=== PATIENT | male | born 1955 | race Caucasian/White ===

== ENCOUNTER → 2017-02-15 | Outpatient (CLI) | payer OTHER ==
[~2017-02-15] MED LIST: VIAG100T PO
--- NOTE | 2017-02-15 10:53 | RADONC ---
RADIATION ONCOLOGY FOLLOWUP NOTE DATE: 02/15/2017 CHART NUMBER: [id number] DIAGNOSIS: Prostate cancer. STAGE: IIA, [id number]. ECOG PERFORMANCE STATUS: 0. FOLLOWUP NOTE: Mr. Fair is a very pleasant 61-year-old white male with the diagnosis of a stage IIA, B4rO5R4 moderate to poorly differentiated Lala score 7 (3-4) adenocarcinoma of the prostate who is presenting to us today for followup visit 6 months post completion of external beam radiation therapy. The patient presents today reporting that he is generally doing well but has burning upon urination, especially near the tip of his penis. The pain actually can get very severe and include mild most of his penis. The patient's review of systems is positive for pain at the tip of the penis but is otherwise noncontributory. He denies nausea, vomiting, fevers, chills, night sweats, diplopia, headaches, anxiety or depression, anorexia, weight loss, visual disturbances, chest pain, urinary or bowel difficulties, bone pain, or neurological problems. PHYSICAL EXAMINATION: The patient is a well-developed, well-nourished male in no acute distress. HEENT exam is normocephalic, atraumatic. Extraocular movements are intact. There is no palpable cervical, supraclavicular, infraclavicular, axillary, or inguinal lymphadenopathy present. Lungs are clear to auscultation and percussion. Heart has a regular rate and rhythm. Abdomen is benign with no hepatosplenomegaly, masses, or tenderness. Rectal examination reveals a normal anal sphincter tone. His prostate is smooth with no evidence of nodularity. Skeletal examination reveals no tenderness to pressure or percussion of the bony skeleton. Extremities reveal no clubbing, cyanosis, or edema. Neurologic exam is grossly intact as is the remainder of the physical examination. ASSESSMENT: The patient continues to complain of pain on the edge of his penis. He reports that this pain has been coming and going since he had a catheter removed following biopsy. To be thorough I have ordered a new culture and sensitivity and urinalysis. He did have one done on December 29 which showed no evidence of infection, however, the patient reports that this seems to be getting worse. The patient says his urine is free of any sign of blood pus or other issues. I have reproduced the patient's treatment black and his penis was not in the radiation field. The upper ureter, however, would have been in the radiation treatment field as would the penile bulb. In light of this I have given the patient Pyridium and he will use that for the next week and then the me know how he is doing. Meanwhile, we await the results of urinalysis and culture and sensitivity. I have scheduled a routine followup as well with him. If this does not improve we will refer him back to his urologist. cc: *Ally Dukes MD
== END ==
LOC: M ONCR 08:53
PROVIDERS: ATTEND Radiology Radiation Oncology
DX: C61 Malignant neoplasm of prostate (principal)

== ENCOUNTER 2019-11-06 11:56 | Inpatient (IN) | payer MEDICAID, OTHER ==
[~2019-11-06] VITALS: Ht 185.4 cm; Wt 96.2 kg
[2019-11-06 14:50] VITALS: BP 152/67
[2019-11-06] MEDS ORDERED: traZODone 25MG PER 1/2 TABLET PO PRN (16:15)
[2019-11-06] MEDS ORDERED: MOM 30ML SUSPENSION UDC PO PRN (16:15)
[2019-11-06] MEDS ORDERED: LISI40TA PO (17:28)
[2019-11-06] MEDS ORDERED: NICO21DI38 TD (17:28)
[2019-11-06] MEDS ORDERED: TRAZ-186 PO (17:28)
[2019-11-06] MEDS ORDERED: BRIL90TA PO (17:28)
[2019-11-06] MEDS ORDERED: MELA5TAB7 PO (17:28)
[2019-11-06] MEDS ORDERED: HYDR25TAB PO (17:28)
[2019-11-06] MEDS ORDERED: ASPI81TA85 PO (17:28)
[2019-11-06] MEDS ORDERED: FLOM0.4C39 PO (17:28)
[2019-11-06] MEDS ORDERED: ATOR80TA59 PO (17:28)
[2019-11-06] MEDS ORDERED: METO50TA7 PO (17:31)
[2019-11-06] MEDS ORDERED: METO1TAB7 PO (17:34)
[2019-11-06] MEDS: NICOTINE 21MG/24HR 1 EA TRANSDERMAL TD SCH (18:16)
[2019-11-06] MEDS: PANTOPRAZOLE 40MG TAB (PROTONIX) PO SCH (18:57)
[2019-11-06] MEDS: IPRATROPIUM 0.5MG/ALBUTEROL 2.5MG INH SOL UD 3ML (DUONEB)(J7620) NEB SCH (19:55)
[2019-11-06 20:00] VITALS: BP 174/83
[2019-11-06] MEDS: TAMSULOSIN 0.4 MG CAP PO SCH (20:09)
[2019-11-06] MEDS: SENNA 8.6 MG TAB (SENOKOT) PO SCH (20:09)
[2019-11-06] MEDS: TICAGRELOR 90 MG TABLET (BRILINTA) PO SCH (20:09)
[2019-11-06] MEDS: DOCUSATE SODIUM 100 MG CAP PO SCH (20:09)
[2019-11-06] MEDS: ATORVASTATIN 20 MG TAB PO SCH (20:09)
[2019-11-06] MEDS: ACETAMINOPHEN TAB 650MG DOSE (2X325MG) PO PRN (20:22)
[2019-11-06] MEDS ORDERED: ATORVASTATIN 20 MG TAB PO SCH (21:00)
[2019-11-06] MEDS: METOPROLOL TART 50 MG TAB PO SCH (23:06)
[2019-11-07 06:00] VITALS: BP 145/86
[2019-11-07 07:29] LABS: BASO # 0.1 10^3/uL (0.0-0.2); BASO % 1.4 % (0.0-1.0); EOS # 0.4 10^3/uL (0.0-0.5); HEMATOCRIT 50.5 % (42.0-52.0); HEMOGLOBIN 17.3 g/dl (13.5-17.5); LYMPH # 1.4 10^3/uL (1.5-5.0); LYMPH % 15.8 % (24.0-44.0); MEAN CORPUSCULAR HEMOGLOBIN 34.6 pg (27.0-33.0); MEAN CORPUSCULAR HGB CONC 34.3 g/dl (32.0-36.5); MONO # 0.9 10^3/uL (0.0-0.8); MONO % 10.3 % (0.0-5.0); NEUTROPHILS # 5.9 10^3/uL (1.5-8.5); PLATELET COUNT, AUTOMATED 308 10^3/uL (150-450); WHITE BLOOD COUNT 8.8 10^3/uL (4.0-10.0)
[2019-11-07 07:54] LABS: ALBUMIN 3.2 GM/DL (3.2-5.2); ALT/SGPT 65 U/L (12-78); BILIRUBIN,TOTAL 0.5 MG/DL (0.2-1.0); BLOOD UREA NITROGEN 22 MG/DL (7-18); CALCIUM LEVEL 8.7 MG/DL (8.8-10.2); CARBON DIOXIDE LEVEL 23 MEQ/L (21-32); CHLORIDE LEVEL 111 MEQ/L (98-107); CREATININE FOR GFR 0.84 MG/DL (0.70-1.30); GLOMERULAR FILTRATION RATE > 60.0 (>49); GLUCOSE, FASTING 101 MG/DL (70-100); POTASSIUM SERUM 4.1 MEQ/L (3.5-5.1); SODIUM LEVEL 141 MEQ/L (136-145); TOTAL PROTEIN 7.2 GM/DL (6.4-8.2)
[2019-11-07] MEDS: IPRATROPIUM 0.5MG/ALBUTEROL 2.5MG INH SOL UD 3ML (DUONEB)(J7620) NEB SCH ×3 (08:03→19:36)
[2019-11-07] MEDS: ASPIRIN 81 MG ENTERIC TAB PO SCH (08:31)
[2019-11-07] MEDS: METOPROLOL TART 50 MG TAB PO SCH (08:31)
[2019-11-07] MEDS: TICAGRELOR 90 MG TABLET (BRILINTA) PO SCH ×2 (08:31→20:38)
[2019-11-07] MEDS: lisinopriL 40 MG TAB PO SCH (08:31)
[2019-11-07] MEDS: NICOTINE 21MG/24HR 1 EA TRANSDERMAL TD SCH (08:31)
[2019-11-07] MEDS: hydroCHLOROthiazide 25 MG TAB PO SCH (08:32)
[2019-11-07] MEDS: DOCUSATE SODIUM 100 MG CAP PO SCH ×2 (08:32→20:38)
[2019-11-07] MEDS: PANTOPRAZOLE 40MG TAB (PROTONIX) PO SCH (08:32)
[2019-11-07] MEDS: ACETAMINOPHEN TAB 650MG DOSE (2X325MG) PO PRN (08:35)
--- NOTE | 2019-11-07 12:56 | HPEPDOC ---
Technical Communicator Note DATE OF ADMISSION: 11-06-19 DATE OF SERVICE: 11-06-19 TIME OF ADMISSION: Please refer to physician's admission order. SOURCE OF ADMISSION INFORMATION: [facility] records and patient CHIEF COMPLAINT: stroke HISTORY OF PRESENT ILLNESS: 63M pmh HTN, CAD, history of prostate cancer, smoker who developed left sided weakness and presented to [facility] on 10-30-19 where CTA showed complete occlusion of the right internal carotid artery and right middle cerebral arteryno evidence of intracranial hemorrhage. He was given tPA and underwent a right a mechanical thrombectomy of the right MCA and ICA; angioplasty and stenting of right ICA/CCA. He had post-procedure hemorrhage in the right basal ganglia and willams radiata on 10-31-19. He was found to have decreased pulses in his LLE for which US showed 50-75% stenosis of the common femoral artery and acute superficial femoral artery occlusion in the proximal thigh thought to be due to mechanical thrombectomy. He was evaluated by therapy, found to have significant left sided paresis and difficulty with mobility and ADLs well below his prior level of function and deemed medically appropriate for discharge to ARU on 11-06-19. REVIEW OF SYSTEMS: The following is a completed review of systems and has been reviewed. Review of systems otherwise unremarkable. PAIN: Patient self reports no pain EYES: decreased vision on the left EARS, NOSE, & THROAT: +dysphagia CARDIOVASCULAR: Denies chest pain or palpitations PULMONARY: Denies shortness of breath, +cough GASTROINTESTINAL: Denies constipation/diarrhea GENITOURINARY: urinary retention (chronic) MUSCULOSKELETAL: NEUROLOGICAL:left sided paresis HEMATOLOGICAL: denies easy bruising SKIN: left toe ulcer PSYCHIATRIC: Unremarkable All other review of systems found to be negative. PAST MEDICAL HISTORY: as per HPI PAST SURGICAL HISTORY: Prostatotomy ALLERGIES: Please see below. MEDICATIONS: Please see below. FAMILY HISTORY: CAD SOCIAL HISTORY: +smoker, no etoh or illicit drugs, lives alone DIET: mechanical soft PHYSICAL EXAMINATION: VITAL SIGNS: Please see below. GENERAL: Pleasant and cooperative. No acute distress. HEENT: PERRL. Extraocular movements grossly intact, + difficulty looking to left, but able to cross midline, Clear conjunctiva CARDIOVASCULAR: Regular rate and rhythm. No murmurs, rubs, or gallops LUNGS: Clear to auscultation bilaterally. No wheezes. No rhonchi ABDOMEN: Soft, nontender, nondistended. Positive bowel sounds. Normal active bowel sounds NEUROLOGICAL: Alert and oriented times three. Cranial nerves II through XII grossly intact. Sensation to light touch groslyinact in all4 extremities, + extinction to touch on the left (+)left eye-brow sparing left facial droop (-) Babinksi bilat 1/4+ tone left elbow extensors EXTREMITIES: 5\5 strength right upper extremities. Left UE 2/5 elbow flexors, 3/5 elbow extensors, 2/5 wrist extension, 3/5 toaster operator 5/5 RLE, 3+/5 left hip flexion, knee extension, 4/5 ankle DF, EHL, and PF SKIN: left D1-D2 interdigit ulcer (dry) LABORATORY DATA: Please see below. IMAGING: Imaging documentation personally reviewed by record FUNCTIONAL STATUS: Premorbid: Independent with all activities of daily life as well as mobility On Admission: Mod-Max assistance for bed mobility, functional transfers, ambulation, dressing, toileting GOALS: Mod-I with quad cane ambulating household distances, functional transfers, toileting, bathing, dressing, medical optimization ASSESSMENT:63-year-old M with past medical history of HTN who presents status post stroke PLAN: 1.Rehab-PT advance gait training, trunk control, strenghten, stretch, maintain ROM bilat LE- e-stim prn OT- advance ADL management, strengthen, stretch, maintain ROM bilat UE, e-stim prn, left shoulder stabilization, consider taping, sling during ambulation for shoulder protectin 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 Neuro: s/p right MCA infarct s/p TPA and ICA/MCA thrombectomy with stenting with right basal ganglia and willams radiata hemorrhagic - patient with dyshagia and left sisde paresis -c/u ASA, Brillinta, BP control, and statin for secondary stroke prevention -will need neurology referral -f/u Dr Molina neurosurgeon upon d/c 3. Cardiac: hx HTN, c/u metoprolol, lisinopril, HCTZ- medicine consulted to assist in management, recent ECHO at [facility] not suggestive of systolic/diastolic CHF -HLD- c/u statin 4. Resp: hx of smoking with cough, will start Duonebs, monitor for infection, encourage incentive spirometry -nicotine patch 5. Vasc: recent acute occlusion left superficial femoral artery, patient asymptomatic, will consider inhouse vascular consult prn 6. : hx of prostate cancer s/p prostatotomy- patient self-caths about once a month at home, currently with william, will wait for patient to bring in own equipment before doing TOV -c/u FLomax 0.8 mg qhs 7. DVT ppx: Teds, will order Dopplers, avoiding chemoprophylaxis given recent hemorrhage 8. GI ppx: protonix 9. Disp: tbd POST ADMISSION PHYSICIAN EVALUATION: Medical and functional status: Description of medical status, medical assessment: As above. Rehabilitation diagnosis and current and prior cold morbid medical conditions as above. Risk of complications and plans to mitigate them as above. Description of functional status current status is as above. Prior status as above. Status compared to preadmission: There are no clinically significant differences between the patient's current status and the information described on the preadmission screening document. Treatment plan anticipated: Treatment plan is as described above. Required disciplines including physical therapy, occupational therapy, others as noted above Intensity of services: 3 hours a day, 6 days a week. Special considerations: There are no specific special or safety considerations that would likely preclude immediate implementation of an intensive rehabilitation program or subsequently influence the plan of care. ATTESTATION: Considering all the information above, it is my best judgment that this patient requires intensive rehabilitation therapy as described above and an inpatient hospital environment due to the complexity of nursing, medical, and rehabilitation needs required by the patient. Furthermore, this patient can reasonably be expected to participate in an benefit from an inpatient rehabilitation stay with an interdisciplinary team approach to the delivery of rehabilitation care under the direction and supervision of rehabilitation physician PROGNOSIS: Good ESTIMATED LENGTH OF STAY: 21-28 days. PROJECTED DISCHARGE DESTINATION: Home with family support and any durable medical equipment required to increase functional safety and mobility. TIME SPENT COUNSELING AND COORDINATING INITIAL CARE: Greater than 70 minutes. Vital Signs Vital Sign - Last 24 Hours 11/06/19 11/06/19 11/06/19 11/07/19 14:50 20:00 23:06 06:00 Temp 98.3 97.5 97.2 Pulse 88 113 99 86 Resp 20 18 18 B/P (MAP) 152/67 (95) 174/83 (113) 131/81 145/86 (105) Pulse Ox 97 95 93 O2 Delivery Room Air Room Air Room Air 11/07/19 08:31 Pulse 86 B/P (MAP) 145/86 Laboratory Data CBC/BMP Laboratory Tests 11/07/19 07:11 Labs 24H Laboratory Tests 2 11/07/19 07:11: Immature Granulocyte % (Auto) 0.5, Neutrophils (%) (Auto) 67.0H, Lymphocytes (%) (Auto) 15.8L, Monocytes (%) (Auto) 10.3H, Eosinophils (%) (Auto) 5.0H, Basophils (%) (Auto) 1.4H, Neutrophils # (Auto) 5.9, Lymphocytes # (Auto) 1.4L, Monocytes # (Auto) 0.9H, Eosinophils # (Auto) 0.4, Basophils # (Auto) 0.1, Nucleated Red Blood Cells % (auto) 0.0, Anion Gap 7L, Glomerular Filtration Rate > 60.0, Calcium Level 8.7L, Total Bilirubin 0.5, Aspartate Amino Transf (AST/SGOT) 40H, Alanine Aminotransferase (ALT/SGPT) 65, Alkaline Phosphatase 54, Total Protein 7.2, Albumin 3.2, Albumin/Globulin Ratio 0.80L Home Medications Scheduled Aspirin (Aspir 81) 81 Mg Tablet.dr, 81 MG PO DAILY, (Reported) Atorvastatin Calcium (Atorvastatin Calcium) 80 Mg Tablet, 80 MG PO QHS, (Reported) INCREASED DOSE AT [facility] Hydrochlorothiazide (Hydrochlorothiazide) 25 Mg Tablet, 25 MG PO DAILY, (Reported) Lisinopril (Lisinopril) 40 Mg Tablet, 40 MG PO DAILY, (Reported) Melatonin (Melatonin) 5 Mg Tablet, 5 MG PO QHS, (Reported) Metoprolol Succinate (Metoprolol Succinate) 50 Mg Tab.er.24h, 50 MG PO DAILY, (Reported) Nicotine (Nicotine Patch) 21 Mg/24 Hr Patch.td24, 21 MG TD DAILY, (Reported) Tamsulosin HCl (Flomax) 0.4 Mg Capsule, 0.8 MG PO DAILY, (Reported) Ticagrelor Base (Brilinta) 90 Mg Tablet, 90 MG PO BID, (Reported) Trazodone HCl (Trazodone HCl) 50 Mg Tablet, 25 MG PO QHS, (Reported) Allergies Coded Allergies: No Known Allergies (Verified Allergy, Unknown, 11/06/19) A-FIB/CHADSVASC A-FIB History Current/History of A-Fib/PAF?: No ANNE BENAVIDEZ MD Nov 07, 2019 12:56
--- NOTE | 2019-11-07 12:57 | IPNPDOC ---
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 He does not think he got the nocturnal 02 last night. REVIEW OF SYSTEMS: The following is a completed review of systems and has been reviewed. Review of systems otherwise unremarkable. PAIN: Patient self reports no pain EYES: decreased vision on the left EARS, NOSE, & THROAT: +dysphagia CARDIOVASCULAR: Denies chest pain or palpitations PULMONARY: Denies shortness of breath, +cough GASTROINTESTINAL: Denies constipation/diarrhea GENITOURINARY: urinary retention (chronic) MUSCULOSKELETAL: NEUROLOGICAL:left sided paresis HEMATOLOGICAL: denies easy bruising SKIN: left toe ulcer PSYCHIATRIC: Unremarkable All other review of systems found to be negative. PHYSICAL EXAMINATION: VITAL SIGNS: Please see below. GENERAL: Pleasant and cooperative. No acute distress. HEENT: PERRL. Extraocular movements grossly intact, + difficulty looking to left, but able to cross midline, Clear conjunctiva CARDIOVASCULAR: Regular rate and rhythm. No murmurs, rubs, or gallops LUNGS: Clear to auscultation bilaterally. No wheezes. No rhonchi ABDOMEN: Soft, nontender, nondistended. Positive bowel sounds. Normal active bowel sounds NEUROLOGICAL: Alert and oriented times three. Cranial nerves II through XII grossly intact. Sensation to light touch groslyinact in all4 extremities, + extinction to touch on the left (+)left eye-brow sparing left facial droop (-) Babinksi bilat 1/4+ tone left elbow extensors EXTREMITIES: 5\5 strength right upper extremities. 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 Neuro: s/p right MCA infarct s/p TPA and ICA/MCA thrombectomy with stenting with right basal ganglia and willams radiata hemorrhagic - patient with dyshagia and left sisde paresis -c/u ASA, Brillinta, BP control, and statin for secondary stroke prevention -will need neurology referral -f/u Dr Molina neurosurgeon upon d/c 3. Cardiac: hx HTN, c/u metoprolol, lisinopril, HCTZ- medicine consulted to assist in management, recent ECHO at [facility] not suggestive of systolic/diastolic CHF -HLD- c/u statin 4. Resp: hx of smoking with cough, will start Duonebs, monitor for infection, encourage incentive spirometry -nicotine patch -hx of YAN but did not finish getting fitted for CPAP mask, c/u nocturnal 02, will need referral to pulmonology 5. Vasc: recent acute occlusion left superficial femoral artery, patient asymptomatic, will consider inhouse vascular consult prn 6. : hx of prostate cancer s/p prostatotomy- patient self-caths about once a month at home, currently with william, will wait for patient to bring in own equipment before doing TOV -c/u FLomax 0.8 mg qhs 7. DVT ppx: Teds, Dopplers negative, avoiding chemoprophylaxis given recent hemorrhage 8. GI ppx: protonix 9. Disp: tbd Allergies Coded Allergies: No Known Allergies (Verified Allergy, Unknown, 11/06/19) Vital Signs Vital Signs Date Time Temp Pulse Resp B/P (MAP) Pulse Ox O2 Delivery O2 Flow Rate FiO2 11/07/19 08:31 86 145/86 11/07/19 06:00 97.2 18 93 Room Air Laboratory Data CBC/BMP Laboratory Tests 11/07/19 07:11 Labs 24H Laboratory Tests 2 11/07/19 07:11: Immature Granulocyte % (Auto) 0.5, Neutrophils (%) (Auto) 67.0H, Lymphocytes (%) (Auto) 15.8L, Monocytes (%) (Auto) 10.3H, Eosinophils (%) (Auto) 5.0H, Basophils (%) (Auto) 1.4H, Neutrophils # (Auto) 5.9, Lymphocytes # (Auto) 1.4L, Monocytes # (Auto) 0.9H, Eosinophils # (Auto) 0.4, Basophils # (Auto) 0.1, Nucleated Red Blood Cells % (auto) 0.0, Anion Gap 7L, Glomerular Filtration Rate > 60.0, Calcium Level 8.7L, Total Bilirubin 0.5, Aspartate Amino Transf (AST/SGOT) 40H, Alanine Aminotransferase (ALT/SGPT) 65, Alkaline Phosphatase 54, Total Protein 7.2, Albumin 3.2, Albumin/Globulin Ratio 0.80L Current Medications Current Medications Current Medications Medications (Trade) Dose Ordered Sig/Cj Route PRN Reason Start Time Stop Time Status Last Admin Dose Admin Acetaminophen (Tylenol Tab) 650 mg Q4HP PRN PO fever/MILD PAIN 11/06/19 16:15 11/07/19 08:35 Albuterol/ Ipratropium (Duoneb (Ipr 0.5mg/Alb 2.5mg)) 3 ml RTID NEB 11/06/19 20:00 11/07/19 08:03 Aspirin (Ecotrin) 81 mg DAILY PO 11/07/19 09:00 11/07/19 08:31 Atorvastatin Calcium (Lipitor) 40 mg QHS PO 11/06/19 21:00 Cancel Atorvastatin Calcium (Lipitor) 80 mg QHS PO 11/06/19 21:00 11/06/19 20:09 Docusate Sodium (Colace) 100 mg BID PO 11/06/19 21:00 11/06/19 20:09 Home Med (Med Rec Complete!) ASDIRECTED XX 11/06/19 17:45 11/06/19 17:44 DC Hydrochlorothiazide (Hydrodiuril) 25 mg DAILY PO 11/07/19 09:00 11/07/19 08:32 Lisinopril (Prinivil) 40 mg DAILY PO 11/07/19 09:00 11/07/19 08:31 Magnesium Hydroxide (Milk Of Magnesia) 30 ml DAILYPRN PRN PO CONSTIPATION 11/06/19 16:15 Metoprolol Tartrate (Lopressor) 50 mg BID PO 11/06/19 21:00 11/07/19 09:48 DC 11/07/19 08:31 Metoprolol Tartrate (Lopressor) 75 mg BID PO 11/07/19 21:00 Miscellaneous (Unresolved Clarification Entry) SEE LABEL COMMENTS DAILY XX 11/06/19 09:00 1/15/20 09:55 DC 11/06/19 18:17 Nicotine (Nicoderm Cq 21mg) 1 patch DAILY TD 11/06/19 09:00 11/07/19 08:31 Pantoprazole Sodium (Protonix) 40 mg DAILY PO 11/06/19 09:00 11/07/19 08:32 Senna (Senokot) 1 tab QHS PO 11/06/19 21:00 11/06/19 20:09 Tamsulosin HCl (Flomax) 0.8 mg QHS PO 11/06/19 21:00 11/06/19 20:09 Ticagrelor (Brilinta) 90 mg BID PO 11/06/19 21:00 11/07/19 08:31 Trazodone HCl (Desyrel) 25 mg QHSP PRN PO INSOMNIA 11/06/19 16:15 ANNE BENAVIDEZ MD Nov 07, 2019 12:57
[2019-11-07 14:00] VITALS: BP 129/79
--- NOTE | 2019-11-07 16:24 | REP ---
Bilateral lower extremity Duplex Doppler venous ultrasound: Real time compression and duplex Doppler interrogation of the bilateral lower extremity deep venous system is performed. Bilaterally, the common femoral, superficial femoral and popliteal veins are fully compressible with transducer pressure and demonstrate normal spontaneous and phasic flow, without evidence of deep venous thrombosis. Impression: No evidence of deep venous thrombosis of the bilateral lower extremity femoral popliteal venous system. Electronically Signed by Aníbal Heredia MD 11/07/2019 04:15 P
[2019-11-07] MEDS: REMEDY PHYTOPLEX Z-GUARD PASTE 113GM TUBE (FROM STOREROOM PRODUCT) TOP SCH ×2 (16:55→20:41)
[2019-11-07 20:00] VITALS: BP 126/69
[2019-11-07] MEDS: SENNA 8.6 MG TAB (SENOKOT) PO SCH (20:39)
[2019-11-07] MEDS: TAMSULOSIN 0.4 MG CAP PO SCH (20:39)
[2019-11-07] MEDS: METOPROLOL TART 25 MG TABLET PO SCH (20:40)
[2019-11-07] MEDS: ATORVASTATIN 20 MG TAB PO SCH (20:40)
--- NOTE | 2019-11-07 20:43 | CR ---
DATE OF CONSULTATION: 11/07/2019 At approximately 2:30 p.m. REASON FOR CONSULTATION: Medical management. PHYSICIAN REQUESTING CONSULTATION: Dr. Adamson HISTORY OF PRESENT ILLNESS: Mr. Fair is a 63-year-old gentleman who had been hospitalized at [facility] on October 30 with acute onset of left-sided weakness. He was administered tissue plasminogen activator (tPA), and subsequent imaging studies indicated that he had tandem right middle cerebral artery (MCA)/ internal carotid artery (ICA) occlusion. Patient subsequently underwent thrombolysis in cerebral infarction (TICI) 2B procedure with stent to the right ICA. This was complicated by intracerebral hemorrhage into the right basal ganglia and willams radiata as well as with an acute superficial femoral artery occlusion, which subsequently resolved. Patient is transferred to the acute rehabilitation unit (ARU) for ongoing post hospital rehabilitation. We are asked to consult on his medical issues. When I went in to see Giovani he was sitting in the chair. His daughter was at the bedside. He reports just having soreness in his buttocks from just sitting around. He denies having any other complaints. He is not experiencing any chest discomfort, any headaches, any vision changes. He denies having any abdominal pain. He is not having any lower extremity paralysis or weakness beyond what he already suffered from his most recent stroke. His current blood pressure is 129/79 with a pulse of 100, temperature is 97.1 respiratory rate 18, oxygen saturation is 98% on room air. ALLERGIES: Patient has no known drug allergies. CURRENT HOME MEDICATIONS: - metoprolol 75 mg twice a day - baby aspirin daily - hydrochlorothiazide 25 mg daily - lisinopril 40 mg daily - Colace 100 mg twice a day - senna one tablet at bedtime - Brilinta 90 mg twice a day - metoprolol tartrate 50 mg twice a day - Flomax 0.8 mg at bedtime - atorvastatin 80 mg at bedtime - albuterol nebulizer every 8 hours - magnesium hydroxide as needed for constipation - Tylenol every 4 hours as needed for fever or pain - trazodone 25 mg at bedtime as needed for insomnia - Protonix 40 mg daily - nicotine patch PAST MEDICAL HISTORY: Notable for the acute stroke involving the right ICA and MCA, which has left him with left-sided paresis as well as dysphasia. He is status post tPA on 10/30/2019. He is status post TICI 2B procedure with a stent to the right ICA. This was complicated by an intracranial hemorrhage as described above as well as a superficial femoral artery occlusion that subsequently resolved. Patient has a history of coronary artery disease. Recent echo was normal with preserved ejection fraction. He is an ex-smoker. He has a history of carotid stenosis as described above, hypertension, hyperlipidemia, as well as BPH. He self-catheterizes once a day. PAST SURGICAL HISTORY: Notable for prostatectomy secondary to prostate cancer in the past. FAMILY HISTORY: Notable for diabetes, hypertension, prostate issues. SOCIAL HISTORY: Patient and lives alone. Does not use any alcohol or illicit drugs. Ex-smoker who quit prior to his most recent hospitalization. REVIEW OF SYSTEMS: Twelve systems reviewed with the patient, otherwise negative. PHYSICAL EXAMINATION: Temperature is 97.1, heart rate 86, respirations 18, bp 129/79, oxygen saturation 98% on room air. General: The patient is alert and oriented times three. He is a gentleman who has a left facial droop with left-sided paralysis. His head is atraumatic, normocephalic. His pupils are symmetric and reactive to light. Extraocular movements are full. Oropharynx is clear. He has a facial asymmetry. Neck is supple. No audible carotid bruits. Lungs sounds appreciated without rales or rhonchi. Heart is S1, S2. No murmurs, rubs, or gallops. Abdomen is soft, nontender, nondistended with active bowel sounds. Extremities without any significant cyanosis, clubbing, or edema. Neurologic: Patient has dense left-sided hemiparesis. He has facial asymmetry. LABORATORY DATA: White count 8.8, hemoglobin 17.3, hematocrit 50.5, platelet count 308,000. Sodium 141, potassium 4.1, chloride 111, bicarbonate 23, BUN 22, creatinine 0.8, calcium 8.7. Total bilirubin 0.5, AST 40, ALT 65, alkaline phosphatase 54, total protein 7.2, albumin 3.2. IMPRESSION: 1. Left-sided paresis secondary to a right internal carotid artery and middle cerebral artery tandem stroke, status post neurologic intervention with stent placed to the right internal carotid artery. This was complicated by intracerebral hemorrhage as well as distal embolization. 2. Dysphagia. 3. Hypertension. 4. Hyperlipidemia. 5. Tobacco cessation. My recommendations are to maintain the patient's blood pressure at less than 130/90. We will be monitoring this closely given his recent hemorrhagic transformation. He will be continued on his metoprolol 75 mg twice a day. He is to continue on his lisinopril 40 mg by mouth daily as well as metoprolol 50 mg twice a day. Patient is to continue on his aspirin and Brilinta secondary to placement of his stent. He is to followup with his neurosurgeon as well as stroke team as an outpatient as previously scheduled prior to his transfer to acute rehabilitation. Patient is to be maintained on atorvastatin 80 mg at bedtime. I have discussed smoking cessation with him. He has thromboembolic deterrent (TIMOTEO) stockings in place. He is not a candidate for any chemical DVT prophylaxis due to recent intracerebral hemorrhage. Thank you for allowing us in the care of this patient. I will follow along while he is hospitalized in the rehabilitation unit.
[2019-11-08 05:27] VITALS: BP 143/77
[2019-11-08] MEDS: IPRATROPIUM 0.5MG/ALBUTEROL 2.5MG INH SOL UD 3ML (DUONEB)(J7620) NEB SCH ×3 (07:22→20:12)
[2019-11-08] MEDS: DOCUSATE SODIUM 100 MG CAP PO SCH ×2 (09:00→20:41)
[2019-11-08] MEDS: REMEDY PHYTOPLEX Z-GUARD PASTE 113GM TUBE (FROM STOREROOM PRODUCT) TOP SCH ×3 (09:00→20:42)
[2019-11-08] MEDS: NICOTINE 21MG/24HR 1 EA TRANSDERMAL TD SCH (09:17)
[2019-11-08] MEDS: TICAGRELOR 90 MG TABLET (BRILINTA) PO SCH ×2 (09:17→20:41)
[2019-11-08] MEDS: hydroCHLOROthiazide 25 MG TAB PO SCH (09:18)
[2019-11-08] MEDS: PANTOPRAZOLE 40MG TAB (PROTONIX) PO SCH (09:18)
[2019-11-08] MEDS: METOPROLOL TART 25 MG TABLET PO SCH ×2 (09:19→20:41)
[2019-11-08] MEDS: lisinopriL 40 MG TAB PO SCH (09:19)
[2019-11-08] MEDS: ASPIRIN 81 MG ENTERIC TAB PO SCH (09:19)
--- NOTE | 2019-11-08 11:18 | IPNPDOC ---
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 REVIEW OF SYSTEMS: The following is a completed review of systems and has been reviewed. Review of systems otherwise unremarkable. PAIN: Patient self reports no pain EYES: decreased vision on the left EARS, NOSE, & THROAT: +dysphagia CARDIOVASCULAR: Denies chest pain or palpitations PULMONARY: Denies shortness of breath, +cough (improving) GASTROINTESTINAL: Denies constipation/diarrhea GENITOURINARY: urinary retention (chronic) MUSCULOSKELETAL: NEUROLOGICAL:left sided paresis HEMATOLOGICAL: denies easy bruising SKIN: left toe ulcer PSYCHIATRIC: Unremarkable All other review of systems found to be negative. PHYSICAL EXAMINATION: VITAL SIGNS: Please see below. GENERAL: Pleasant and cooperative. No acute distress. HEENT: PERRL. Extraocular movements grossly intact, + difficulty looking to left, but able to cross midline, Clear conjunctiva CARDIOVASCULAR: Regular rate and rhythm. No murmurs, rubs, or gallops LUNGS: Clear to auscultation bilaterally. No wheezes. No rhonchi ABDOMEN: Soft, nontender, nondistended. Positive bowel sounds. Normal active bowel sounds NEUROLOGICAL: Alert and oriented times three. Cranial nerves II through XII grossly intact. Sensation to light touch groslyinact in all4 extremities, + extinction to touch on the left (+)left eye-brow sparing left facial droop (-) Babinksi bilat 1/4+ tone left elbow extensors EXTREMITIES: 5\5 strength right upper extremities. 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 Neuro: s/p right MCA infarct s/p TPA and ICA/MCA thrombectomy with stenting with right basal ganglia and willams radiata hemorrhagic - patient with dyshagia and left sisde paresis -c/u ASA, Brillinta, BP control, and statin for secondary stroke prevention -will need neurology referral -f/u Dr Molina neurosurgeon upon d/c 3. Cardiac: hx HTN, c/u metoprolol, lisinopril, HCTZ- medicine consulted to assist in management, recent ECHO at [facility] not suggestive of systolic/diastolic CHF -HLD- c/u statin 4. Resp: hx of smoking with cough, will start Duonebs, monitor for infection, encourage incentive spirometry -nicotine patch -hx of YAN but did not finish getting fitted for CPAP mask, c/u nocturnal 02, will need referral to pulmonology 5. Vasc: recent acute occlusion left superficial femoral artery, patient asymptomatic, will consider inhouse vascular consult prn 6. : hx of prostate cancer s/p prostatotomy- patient self-caths about once a month at home, currently with william, will wait for patient to bring in own equipment before doing TOV -c/u FLomax 0.8 mg qhs 7. DVT ppx: Teds, Dopplers negative, avoiding chemoprophylaxis given recent hemorrhage 8. GI ppx: protonix 9. Psych: insomnia- will change trazodone to standing to assist with sleep 9. Disp: tbd Allergies Coded Allergies: No Known Allergies (Verified Allergy, Unknown, 11/06/19) Vital Signs Vital Signs Date Time Temp Pulse Resp B/P (MAP) Pulse Ox O2 Delivery O2 Flow Rate FiO2 11/08/19 09:51 Room Air 11/08/19 09:19 98 151/77 11/08/19 05:27 97.5 18 96 2.0 Current Medications Current Medications Current Medications Medications (Trade) Dose Ordered Sig/Cj Route PRN Reason Start Time Stop Time Status Last Admin Dose Admin Acetaminophen (Tylenol Tab) 650 mg Q4HP PRN PO fever/MILD PAIN 11/06/19 16:15 11/07/19 08:35 Albuterol/ Ipratropium (Duoneb (Ipr 0.5mg/Alb 2.5mg)) 3 ml RTID NEB 11/06/19 20:00 11/08/19 07:22 Aspirin (Ecotrin) 81 mg DAILY PO 11/07/19 09:00 11/08/19 09:19 Atorvastatin Calcium (Lipitor) 40 mg QHS PO 11/06/19 21:00 Cancel Atorvastatin Calcium (Lipitor) 80 mg QHS PO 11/06/19 21:00 11/07/19 20:40 Docusate Sodium (Colace) 100 mg BID PO 11/06/19 21:00 11/07/19 20:38 Home Med (Med Rec Complete!) ASDIRECTED XX 11/06/19 17:45 11/06/19 17:44 DC Hydrochlorothiazide (Hydrodiuril) 25 mg DAILY PO 11/07/19 09:00 11/08/19 09:18 Lisinopril (Prinivil) 40 mg DAILY PO 11/07/19 09:00 11/08/19 09:19 Magnesium Hydroxide (Milk Of Magnesia) 30 ml DAILYPRN PRN PO CONSTIPATION 11/06/19 16:15 Metoprolol Tartrate (Lopressor) 50 mg BID PO 11/06/19 21:00 11/07/19 09:48 DC 11/07/19 08:31 Metoprolol Tartrate (Lopressor) 75 mg BID PO 11/07/19 21:00 11/08/19 09:19 Miscellaneous (Unresolved Clarification Entry) SEE LABEL COMMENTS DAILY XX 11/06/19 09:00 11/07/19 09:55 DC 11/06/19 18:17 Nicotine (Nicoderm Cq 21mg) 1 patch DAILY TD 11/06/19 09:00 11/08/19 09:17 Pantoprazole Sodium (Protonix) 40 mg DAILY PO 11/06/19 09:00 11/08/19 09:18 Senna (Senokot) 1 tab QHS PO 11/06/19 21:00 11/07/19 20:39 Tamsulosin HCl (Flomax) 0.8 mg QHS PO 11/06/19 21:00 11/07/19 20:39 Ticagrelor (Brilinta) 90 mg BID PO 11/06/19 21:00 11/08/19 09:17 Trazodone HCl (Desyrel) 25 mg QHSP PRN PO INSOMNIA 11/06/19 16:15 ANNE BENAVIDEZ MD Nov 08, 2019 11:18
[2019-11-08] MEDS ORDERED: VARIBAR NECTAR 40% w/v 240ML SUSP BTL As Ordered ONE (12:10)
[2019-11-08] MEDS ORDERED: E-Z-PAQUE 96% w/w SUSP 176GM BTL As Ordered ONE (12:10)
[2019-11-08] MEDS ORDERED: VARIBAR PUDDING 40% w/v 230ML TUBE As Ordered ONE (12:10)
[2019-11-08 14:00] VITALS: BP 117/69
--- NOTE | 2019-11-08 15:19 | REP ---
COOKIE SWALLOW The procedure was performed under the direct supervision of Dr. Martínez. The procedure was performed with Micki Horner from speech pathology present. 5 ml aliquots of thin, pudding, mixed fruit, soft and solid consistency barium was administered. There is no evidence of penetration or aspiration. The detailed report of this examination will be provided by speech pathology. 2 minutes of fluoroscopy time was utilized for this procedure. Electronically Signed by ILIR Chatman 11/08/2019 02:58 P Electronically Signed by Wally Martínez MD 11/08/2019 03:10 P
[2019-11-08 20:00] VITALS: BP 130/80
[2019-11-08] MEDS: TAMSULOSIN 0.4 MG CAP PO SCH (20:40)
[2019-11-08] MEDS: SENNA 8.6 MG TAB (SENOKOT) PO SCH (20:40)
[2019-11-08] MEDS: ATORVASTATIN 20 MG TAB PO SCH (21:42)
[2019-11-08] MEDS: traZODone 25MG PER 1/2 TABLET PO SCH (23:29)
[2019-11-09 07:08] LABS: BASO # 0.1 10^3/uL (0.0-0.2); BASO % 1.3 % (0.0-1.0); EOS # 0.4 10^3/uL (0.0-0.5); HEMATOCRIT 51.6 % (42.0-52.0); HEMOGLOBIN 17.1 g/dl (13.5-17.5); LYMPH # 1.8 10^3/uL (1.5-5.0); LYMPH % 21.1 % (24.0-44.0); MEAN CORPUSCULAR HEMOGLOBIN 33.7 pg (27.0-33.0); MEAN CORPUSCULAR HGB CONC 33.1 g/dl (32.0-36.5); MEAN CORPUSCULAR VOLUME 101.8 fl (80.0-96.0); MONO # 0.9 10^3/uL (0.0-0.8); MONO % 11.1 % (0.0-5.0); NEUTROPHILS # 5.1 10^3/uL (1.5-8.5); PLATELET COUNT, AUTOMATED 302 10^3/uL (150-450); RED BLOOD COUNT 5.07 10^6/uL (4.30-6.10); WHITE BLOOD COUNT 8.4 10^3/uL (4.0-10.0)
[2019-11-09] MEDS: IPRATROPIUM 0.5MG/ALBUTEROL 2.5MG INH SOL UD 3ML (DUONEB)(J7620) NEB SCH ×3 (07:17→20:07)
[2019-11-09 07:31] LABS: BLOOD UREA NITROGEN 22 MG/DL (7-18); CALCIUM LEVEL 8.8 MG/DL (8.8-10.2); CARBON DIOXIDE LEVEL 24 MEQ/L (21-32); CHLORIDE LEVEL 109 MEQ/L (98-107); CREATININE FOR GFR 0.87 MG/DL (0.70-1.30); GLOMERULAR FILTRATION RATE > 60.0 (>49); GLUCOSE, FASTING 88 MG/DL (70-100); POTASSIUM SERUM 3.6 MEQ/L (3.5-5.1); SODIUM LEVEL 140 MEQ/L (136-145)
[2019-11-09] MEDS: ASPIRIN 81 MG ENTERIC TAB PO SCH (08:12)
[2019-11-09] MEDS: NICOTINE 21MG/24HR 1 EA TRANSDERMAL TD SCH (08:12)
[2019-11-09] MEDS: lisinopriL 40 MG TAB PO SCH (08:13)
[2019-11-09] MEDS: hydroCHLOROthiazide 25 MG TAB PO SCH (08:13)
[2019-11-09] MEDS: DOCUSATE SODIUM 100 MG CAP PO SCH ×2 (08:13→20:43)
[2019-11-09] MEDS: METOPROLOL TART 25 MG TABLET PO SCH ×2 (08:13→20:43)
[2019-11-09] MEDS: PANTOPRAZOLE 40MG TAB (PROTONIX) PO SCH (08:13)
[2019-11-09] MEDS: TICAGRELOR 90 MG TABLET (BRILINTA) PO SCH ×2 (08:13→20:43)
[2019-11-09] MEDS: REMEDY PHYTOPLEX Z-GUARD PASTE 113GM TUBE (FROM STOREROOM PRODUCT) TOP SCH ×3 (09:26→20:44)
[2019-11-09 14:00] VITALS: BP 110/64
--- NOTE | 2019-11-09 14:24 | IPNPDOC ---
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 He says he is still not sleeping well, but has not been a good sleeper in the past. He reports he is sad, but not depressed and tearful. he agrees to a trial of Prozac for stroke recovery. REVIEW OF SYSTEMS: The following is a completed review of systems and has been reviewed. Review of systems otherwise unremarkable. PAIN: Patient self reports no pain EYES: decreased vision on the left EARS, NOSE, & THROAT: +dysphagia CARDIOVASCULAR: Denies chest pain or palpitations PULMONARY: Denies shortness of breath, +cough (improving) GASTROINTESTINAL: Denies constipation/diarrhea GENITOURINARY: urinary retention (chronic) MUSCULOSKELETAL: NEUROLOGICAL:left sided paresis HEMATOLOGICAL: denies easy bruising SKIN: left toe ulcer PSYCHIATRIC: Unremarkable All other review of systems found to be negative. PHYSICAL EXAMINATION: VITAL SIGNS: Please see below. GENERAL: Pleasant and cooperative. No acute distress. HEENT: PERRL. Extraocular movements grossly intact, + difficulty looking to left, but able to cross midline, Clear conjunctiva CARDIOVASCULAR: Regular rate and rhythm. No murmurs, rubs, or gallops LUNGS: Clear to auscultation bilaterally. No wheezes. No rhonchi ABDOMEN: Soft, nontender, nondistended. Positive bowel sounds. Normal active bowel sounds NEUROLOGICAL: Alert and oriented times three. Cranial nerves II through XII grossly intact. Sensation to light touch groslyinact in all4 extremities, + extinction to touch on the left (+)left eye-brow sparing left facial droop (-) Babinksi bilat 1/4+ tone left elbow extensors EXTREMITIES: 5\5 strength right upper extremities. Left UE 2/5 elbow flexors, 3/5 elbow extensors, 2/5 wrist extension, 3/5 acid supervisor 5/5 RLE, 3+/5 left hip flexion, knee extension, 4/5 ankle DF, EHL, and PF SKIN: left D1-D2 interdigit ulcer (dry) coccyx area erythematous, blanchable ASSESSMENT:63-year-old M with past medical history of HTN who presents status post stroke PLAN: 1.Rehab-PT advance gait training, trunk control, strenghten, stretch, maintain ROM bilat LE- e-stim prn OT- advance ADL management, strengthen, stretch, maintain ROM bilat UE, e-stim prn, left shoulder stabilization, consider taping, sling during ambulation for shoulder protectin 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 Neuro: s/p right MCA infarct s/p TPA and ICA/MCA thrombectomy with stenting with right basal ganglia and willams radiata hemorrhagic - patient with dyshagia and left sisde paresis -c/u ASA, Brillinta, BP control, and statin for secondary stroke prevention -will need neurology referral -f/u Dr Molina neurosurgeon upon d/c 3. Cardiac: hx HTN, c/u metoprolol, lisinopril, HCTZ- medicine consulted to assist in management, recent ECHO at [facility] not suggestive of systolic/diastolic CHF -HLD- c/u statin 4. Resp: hx of smoking with cough, c/u Duonebs, monitor for infection, encourage incentive spirometry -nicotine patch -hx of YAN but did not finish getting fitted for CPAP mask, c/u nocturnal 02, will need referral to pulmonology 5. Vasc: recent acute occlusion left superficial femoral artery, patient asymptomatic, will consider inhouse vascular consult prn 6. : hx of prostate cancer s/p prostatotomy- patient self-caths about once a month at home, currently with william, patient requesting to start TOV Tuesday -c/u FLomax 0.8 mg qhs 7. DVT ppx: Teds, Dopplers negative, avoiding chemoprophylaxis given recent hemorrhage 8. GI ppx: protonix 9. Psych: insomnia- c/u trazodone -will start prozac 20mg qHS for motor recovery in stroke, patient tearful, but denies feeling depressed 10. Skin- c/u barrier cream to sacrum, optifoam ordered, and roho cushion for wheelchiar usage to prevent skin breakdown 11. Pain: will change tylenol to standing to help with tailbone pain 12. Disp: tbd Allergies Coded Allergies: No Known Allergies (Verified Allergy, Unknown, 11/06/19) Vital Signs Vital Signs Date Time Temp Pulse Resp B/P (MAP) Pulse Ox O2 Delivery O2 Flow Rate FiO2 11/09/19 08:13 98 130/80 11/08/19 20:18 15 11/08/19 20:00 97.6 93 Room Air 11/08/19 05:27 2.0 Laboratory Data CBC/BMP Laboratory Tests 11/09/19 06:16 Labs 24H Laboratory Tests 2 11/09/19 06:16: Immature Granulocyte % (Auto) 0.5, Neutrophils (%) (Auto) 61.0, Lymphocytes (%) (Auto) 21.1L, Monocytes (%) (Auto) 11.1H, Eosinophils (%) (Auto) 5.0H, Basophils (%) (Auto) 1.3H, Neutrophils # (Auto) 5.1, Lymphocytes # (Auto) 1.8, Monocytes # (Auto) 0.9H, Eosinophils # (Auto) 0.4, Basophils # (Auto) 0.1, Nucleated Red Blood Cells % (auto) 0.0, Anion Gap 7L, Glomerular Filtration Rate > 60.0, Levy cium Level 8.8 Current Medications Current Medications Current Medications Medications (Trade) Dose Ordered Sig/Cj Route PRN Reason Start Time Stop Time Status Last Admin Dose Admin Acetaminophen (Tylenol Tab) 650 mg Q4HP PRN PO fever/MILD PAIN 11/06/19 16:15 11/07/19 08:35 Albuterol/ Ipratropium (Duoneb (Ipr 0.5mg/Alb 2.5mg)) 3 ml RTID NEB 11/06/19 20:00 11/09/19 13:09 Aspirin (Ecotrin) 81 mg DAILY PO 11/07/19 09:00 11/09/19 08:12 Atorvastatin Calcium (Lipitor) 40 mg QHS PO 11/06/19 21:00 Cancel Atorvastatin Calcium (Lipitor) 80 mg QHS PO 11/06/19 21:00 11/08/19 21:42 Docusate Sodium (Colace) 100 mg BID PO 11/06/19 21:00 11/09/19 08:13 Escitalopram Oxalate (Lexapro) 20 mg QHS PO 11/09/19 21:00 UNV Home Med (Med Rec Complete!) ASDIRECTED XX 11/06/19 17:45 11/06/19 17:44 DC Hydrochlorothiazide (Hydrodiuril) 25 mg DAILY PO 11/07/19 09:00 11/09/19 08:13 Lisinopril (Prinivil) 40 mg DAILY PO 11/07/19 09:00 11/09/19 08:13 Magnesium Hydroxide (Milk Of Magnesia) 30 ml DAILYPRN PRN PO CONSTIPATION 11/06/19 16:15 Metoprolol Tartrate (Lopressor) 50 mg BID PO 11/06/19 21:00 11/07/19 09:48 DC 11/07/19 08:31 Metoprolol Tartrate (Lopressor) 75 mg BID PO 11/07/19 21:00 11/09/19 08:13 Miscellaneous (Unresolved Clarification Entry) SEE LABEL COMMENTS DAILY XX 11/06/19 09:00 11/07/19 09:55 DC 11/06/19 18:17 Nicotine (Nicoderm Cq 21mg) 1 patch DAILY TD 11/06/19 09:00 11/09/19 08:12 Pantoprazole Sodium (Protonix) 40 mg DAILY PO 11/06/19 09:00 11/09/19 08:13 Senna (Senokot) 1 tab QHS PO 11/06/19 21:00 11/08/19 20:40 Tamsulosin HCl (Flomax) 0.8 mg QHS PO 11/06/19 21:00 11/08/19 20:40 Ticagrelor (Brilinta) 90 mg BID PO 11/06/19 21:00 11/09/19 08:13 Trazodone HCl (Desyrel) 25 mg DAILY@0000 PO 11/09/19 00:00 11/08/19 23:29 Trazodone HCl (Desyrel) 25 mg QHSP PRN PO INSOMNIA 11/06/19 16:15 11/08/19 11:19 ANNE CANSECO MD Nov 09, 2019 14:24
[2019-11-09] MEDS ORDERED: ACETAMINOPHEN TAB 650MG DOSE (2X325MG) PO SCH (16:00)
[2019-11-09] MEDS ORDERED: ACETAMINOPHEN 500 MG TAB PO PRN (16:00)
[2019-11-09] MEDS: ACETAMINOPHEN 500 MG TAB PO SCH ×2 (16:40→20:44)
[2019-11-09 20:00] VITALS: BP 111/71
[2019-11-09] MEDS: ESCITALOPRAM OXALATE 10 MG TAB (LEXAPRO) PO SCH (20:43)
[2019-11-09] MEDS: SENNA 8.6 MG TAB (SENOKOT) PO SCH (20:43)
[2019-11-09] MEDS: ATORVASTATIN 20 MG TAB PO SCH (20:43)
[2019-11-09] MEDS: TAMSULOSIN 0.4 MG CAP PO SCH (20:43)
[2019-11-09] MEDS: traZODone 25MG PER 1/2 TABLET PO SCH (23:43)
[2019-11-10 06:00] VITALS: BP_SYST 104; BP_SYST 137; BP_DIAS 65; BP_DIAS 74
[2019-11-10] MEDS: IPRATROPIUM 0.5MG/ALBUTEROL 2.5MG INH SOL UD 3ML (DUONEB)(J7620) NEB SCH ×2 (07:52→13:59)
[2019-11-10] MEDS: DOCUSATE SODIUM 100 MG CAP PO SCH ×2 (09:00→20:44)
[2019-11-10] MEDS: NICOTINE 21MG/24HR 1 EA TRANSDERMAL TD SCH (10:40)
[2019-11-10] MEDS: hydroCHLOROthiazide 25 MG TAB PO SCH (10:41)
[2019-11-10] MEDS: PANTOPRAZOLE 40MG TAB (PROTONIX) PO SCH (10:41)
[2019-11-10] MEDS: ASPIRIN 81 MG ENTERIC TAB PO SCH (10:42)
[2019-11-10] MEDS: METOPROLOL TART 25 MG TABLET PO SCH ×2 (10:42→20:43)
[2019-11-10] MEDS: ACETAMINOPHEN 500 MG TAB PO SCH ×3 (10:43→23:07)
[2019-11-10] MEDS: TICAGRELOR 90 MG TABLET (BRILINTA) PO SCH ×2 (10:44→20:43)
[2019-11-10] MEDS: lisinopriL 40 MG TAB PO SCH (10:44)
[2019-11-10] MEDS: REMEDY PHYTOPLEX Z-GUARD PASTE 113GM TUBE (FROM STOREROOM PRODUCT) TOP SCH ×3 (10:45→20:59)
[2019-11-10 14:00] VITALS: BP 123/70
[2019-11-10] MEDS ORDERED: IPRATROPIUM 0.5MG/ALBUTEROL 2.5MG INH SOL UD 3ML (DUONEB)(J7620) NEB PRN (16:45)
--- NOTE | 2019-11-10 17:00 | IPNPDOC ---
Subjective Date Seen The patient was seen on 11/10/19. Subjective Chief Complaint/HPI c/o receiving nebs when he does not need them. Objective Physical Examination General Exam: Positive: Alert, No Acute Distress Eye Exam: Positive: PERRLA, Conjunctiva & lids normal; Negative: Sclera icteric ENT Exam: Positive: Atraumatic, Mucous membr. moist/pink, Pharynx Normal Neck Exam: Positive: Supple; Negative: JVD, thyromegaly Chest Exam: Positive: Clear to auscultation, Normal air movement Heart Exam: Positive: Rate Normal, Regular Rhythm, Normal S1, Normal S2; Negative: Murmurs, Rubs Telemetry: Positive: No significant arrhythmia Abdomen Exam: Positive: Normal bowel sounds, Soft; Negative: Tenderness, Hepatospenomegaly Male Exam: Positive: Normal Genital Exam Extremity Exam: Positive: Normal pulses; Negative: Clubbing, Cyanosis, Edema Skin Exam: Positive: Nl turgor and temperature; Negative: Rash, Breakdown Neuro Exam: Positive: Other (Chronic left hemiparesis) Assessment /Plan Assessment # Acute stroke with left-side hemiparesis # Right Carotid Stenosis s/p stent # Hemorrhagic conversion # HTN # HLP # Tobacco use # Chronic urinary retention Impression - BP stable on current meds - thomas + flomax - tolerating brillinta + asa - change duonebs prn - TEDs - medically stable Plan/VTE VTE Prophylaxis Ordered?: No VTE Exclusion Mechanical Proph: N/A:VTE Prophy Ordered VTE Exclusion Pharmacological: Bleeding Risk VS, I&O, 24H, Fishbone Vital Signs/I&O Vital Signs Date Time Temp Pulse Resp B/P (MAP) Pulse Ox O2 Delivery O2 Flow Rate FiO2 11/10/19 14:00 97.9 77 20 123/70 (87) 98 Room Air 11/08/19 05:27 2.0 I&O- Last 24 Hours up to 6 AM 11/10/19 06:00 Intake Total 1360 ml Output Total 1075 ml Balance 285 ml RAHEEM SERRA MD Nov 10, 2019 17:00
[2019-11-10 20:00] VITALS: BP 117/67
[2019-11-10] MEDS: ATORVASTATIN 20 MG TAB PO SCH (20:42)
[2019-11-10] MEDS: ESCITALOPRAM OXALATE 10 MG TAB (LEXAPRO) PO SCH (20:43)
[2019-11-10] MEDS: TAMSULOSIN 0.4 MG CAP PO SCH (20:43)
[2019-11-10] MEDS: GABAPENTIN 300 MG CAP PO SCH (20:44)
[2019-11-10] MEDS: SENNA 8.6 MG TAB (SENOKOT) PO SCH (20:44)
[2019-11-10] MEDS: traZODone 25MG PER 1/2 TABLET PO SCH (23:07)
[2019-11-11 06:00] VITALS: BP 118/72
[2019-11-11] MEDS: METOPROLOL TART 25 MG TABLET PO SCH ×2 (08:45→21:01)
[2019-11-11] MEDS: ASPIRIN 81 MG ENTERIC TAB PO SCH (08:45)
[2019-11-11] MEDS: lisinopriL 40 MG TAB PO SCH (08:45)
[2019-11-11] MEDS: REMEDY PHYTOPLEX Z-GUARD PASTE 113GM TUBE (FROM STOREROOM PRODUCT) TOP SCH ×3 (08:46→21:02)
[2019-11-11] MEDS: PANTOPRAZOLE 40MG TAB (PROTONIX) PO SCH (08:46)
[2019-11-11] MEDS: hydroCHLOROthiazide 25 MG TAB PO SCH (08:46)
[2019-11-11] MEDS: NICOTINE 21MG/24HR 1 EA TRANSDERMAL TD SCH (08:46)
[2019-11-11] MEDS: TICAGRELOR 90 MG TABLET (BRILINTA) PO SCH ×2 (08:46→21:01)
[2019-11-11] MEDS: GABAPENTIN 300 MG CAP PO SCH ×3 (08:46→21:01)
[2019-11-11] MEDS: DOCUSATE SODIUM 100 MG CAP PO SCH ×2 (08:46→21:01)
[2019-11-11] MEDS: ACETAMINOPHEN 500 MG TAB PO SCH ×3 (08:47→21:01)
[2019-11-11 14:31] VITALS: BP 143/89
[2019-11-11] MEDS ORDERED: LIDOCAINE 2% 5ML JELLY UROJET TOP ONE (19:15)
[2019-11-11 20:00] VITALS: BP 132/78
[2019-11-11] MEDS: SENNA 8.6 MG TAB (SENOKOT) PO SCH (21:01)
[2019-11-11] MEDS: TAMSULOSIN 0.4 MG CAP PO SCH (21:01)
[2019-11-11] MEDS: ATORVASTATIN 20 MG TAB PO SCH (21:01)
[2019-11-11] MEDS: ESCITALOPRAM OXALATE 10 MG TAB (LEXAPRO) PO SCH (21:01)
[2019-11-11] MEDS: LIDOCAINE 2% 5ML JELLY UROJET TOP PRN (21:08)
[2019-11-12] MEDS: traZODone 25MG PER 1/2 TABLET PO SCH ×2 (00:14→21:41)
[2019-11-12 06:00] VITALS: BP 116/72
[2019-11-12 06:48] LABS: BASO # 0.1 10^3/uL (0.0-0.2); BASO % 0.6 % (0.0-1.0); EOS # 0.3 10^3/uL (0.0-0.5); EOS % 2.6 % (0.0-3.0); HEMATOCRIT 52.2 % (42.0-52.0); HEMOGLOBIN 17.9 g/dl (13.5-17.5); LYMPH # 1.6 10^3/uL (1.5-5.0); LYMPH % 16.1 % (24.0-44.0); MEAN CORPUSCULAR HEMOGLOBIN 34.3 pg (27.0-33.0); MEAN CORPUSCULAR HGB CONC 34.3 g/dl (32.0-36.5); MONO % 9.7 % (0.0-5.0); NEUTROPHILS % 70.5 % (36.0-66.0); PLATELET COUNT, AUTOMATED 317 10^3/uL (150-450); RED BLOOD COUNT 5.22 10^6/uL (4.30-6.10); WHITE BLOOD COUNT 9.9 10^3/uL (4.0-10.0)
[2019-11-12 07:30] LABS: BLOOD UREA NITROGEN 28 MG/DL (7-18); CALCIUM LEVEL 9.2 MG/DL (8.8-10.2); CARBON DIOXIDE LEVEL 25 MEQ/L (21-32); CHLORIDE LEVEL 104 MEQ/L (98-107); CREATININE FOR GFR 0.95 MG/DL (0.70-1.30); GLOMERULAR FILTRATION RATE > 60.0 (>49); GLUCOSE, FASTING 92 MG/DL (70-100); POTASSIUM SERUM 3.9 MEQ/L (3.5-5.1); SODIUM LEVEL 137 MEQ/L (136-145)
[2019-11-12] MEDS: DOCUSATE SODIUM 100 MG CAP PO SCH ×2 (08:57→21:42)
[2019-11-12] MEDS: NICOTINE 21MG/24HR 1 EA TRANSDERMAL TD SCH (08:58)
[2019-11-12] MEDS: hydroCHLOROthiazide 25 MG TAB PO SCH (08:59)
[2019-11-12] MEDS: GABAPENTIN 300 MG CAP PO SCH ×3 (08:59→21:41)
[2019-11-12] MEDS: lisinopriL 40 MG TAB PO SCH (08:59)
[2019-11-12] MEDS: TICAGRELOR 90 MG TABLET (BRILINTA) PO SCH ×2 (08:59→21:42)
[2019-11-12] MEDS: ASPIRIN 81 MG ENTERIC TAB PO SCH (08:59)
[2019-11-12] MEDS: ACETAMINOPHEN 500 MG TAB PO SCH ×3 (08:59→21:41)
[2019-11-12] MEDS: PANTOPRAZOLE 40MG TAB (PROTONIX) PO SCH (08:59)
[2019-11-12] MEDS: REMEDY PHYTOPLEX Z-GUARD PASTE 113GM TUBE (FROM STOREROOM PRODUCT) TOP SCH ×3 (09:00→21:42)
[2019-11-12] MEDS: METOPROLOL TART 25 MG TABLET PO SCH ×2 (09:00→21:41)
--- NOTE | 2019-11-12 10:48 | IPNPDOC ---
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 Last night he was having some hematuria and ure thral pain which has improved since lidocaine application. REVIEW OF SYSTEMS: The following is a completed review of systems and has been reviewed. Review of systems otherwise unremarkable. PAIN: Patient self reports no pain EYES: decreased vision on the left EARS, NOSE, & THROAT: +dysphagia CARDIOVASCULAR: Denies chest pain or palpitations PULMONARY: Denies shortness of breath, +cough (improving) GASTROINTESTINAL: Denies constipation/diarrhea GENITOURINARY: urinary retention (chronic) MUSCULOSKELETAL: NEUROLOGICAL:left sided paresis HEMATOLOGICAL: denies easy bruising SKIN: left toe ulcer PSYCHIATRIC: Unremarkable All other review of systems found to be negative. PHYSICAL EXAMINATION: VITAL SIGNS: Please see below. GENERAL: Pleasant and cooperative. No acute distress. HEENT: PERRL. Extraocular movements grossly intact, + difficulty looking to left, but able to cross midline, Clear conjunctiva CARDIOVASCULAR: Regular rate and rhythm. No murmurs, rubs, or gallops LUNGS: Clear to auscultation bilaterally. No wheezes. No rhonchi ABDOMEN: Soft, nontender, nondistended. Positive bowel sounds. Normal active bowel sounds NEUROLOGICAL: Alert and oriented times three. Cranial nerves II through XII grossly intact. Sensation to light touch groslyinact in all4 extremities, + extinction to touch on the left (+)left eye-brow sparing left facial droop (-) Babinksi bilat 1/4+ tone left elbow extensors EXTREMITIES: 5\5 strength right upper extremities. Left UE 1/5 elbow flexors, 1/5 elbow extensors, 0/5 wrist extension, 0/5 business systems technician 5/5 RLE, 2/5 left hip flexion, knee extension, 3/5 ankle DF, EHL, and PF SKIN: left D1-D2 interdigit ulcer (dry) coccyx area erythematous, blanchable ASSESSMENT:63-year-old M with past medical history of HTN who presents status post stroke PLAN: 1.Rehab-PT advance gait training, trunk control, strengthen, stretch, maintain ROM bilat LE- e-stim prn OT- advance ADL management, strengthen, stretch, maintain ROM bilat UE, e-stim prn, left shoulder stabilization, consider taping, sling during ambulation for shoulder protectin 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 Neuro: s/p right MCA infarct s/p TPA and ICA/MCA thrombectomy with stenting with right basal ganglia and willams radiata hemorrhagic conversion - patient with dyshagia and left sided paresis, patient with new flaccid paresis of LUE and weaker LLE, concern for new infarct or hemorrhage- stat CTH and MRI ordered -c/u ASA, Brillinta, BP control, and statin for secondary stroke prevention -will need neurology referral -f/u Dr Molina neurosurgeon upon d/c 3. Cardiac: hx HTN, c/u metoprolol, lisinopril, HCTZ- medicine consulted to assist in management, recent ECHO at [facility] not suggestive of systolic/diastolic CHF -HLD- c/u statin 4. Resp: hx of smoking with cough, c/u Duonebs prn, monitor for infection, encourage incentive spirometry -nicotine patch -hx of YAN but did not finish getting fitted for CPAP mask, c/u nocturnal 02, will need referral to pulmonology 5. Vasc: recent acute occlusion left superficial femoral artery, patient asymptomatic, will consider inhouse vascular consult prn 6. : hx of prostate cancer s/p prostatotomy- patient self-caths about once a month at home, currently with william, patient requesting to start TOV Tuesday -c/u FLomax 0.8 mg qhs 7. DVT ppx: Teds, Dopplers negative, avoiding chemoprophylaxis given recent hemorrhage 8. GI ppx: protonix 9. Psych: insomnia- c/u trazodone -c/u prozac 20mg qHS for motor recovery in stroke -hx of chronic ETOH use- started gabapentin 300 mg TID 10. Skin- c/u barrier cream to sacrum, optifoam ordered, and roho cushion for wheelchiar usage to prevent skin breakdown 11. Pain: c/u tylenol to standing to help with tailbone pain 12. Disp: tbd Allergies Coded Allergies: No Known Allergies (Verified Allergy, Unknown, 11/06/19) Vital Signs Vital Signs Date Time Temp Pulse Resp B/P (MAP) Pulse Ox O2 Delivery O2 Flow Rate FiO2 11/12/19 09:00 100 116/72 11/12/19 06:00 97.4 18 93 Room Air 11/08/19 05:27 2.0 Laboratory Data CBC/BMP Laboratory Tests 11/12/19 06:09 Labs 24H Laboratory Tests 2 11/12/19 06:09: Immature Granulocyte % (Auto) 0.5, Neutrophils (%) (Auto) 70.5H, Lymphocytes (%) (Auto) 16.1L, Monocytes (%) (Auto) 9.7H, Eosinophils (%) (Auto) 2.6, Basophils (%) (Auto) 0.6, Neutrophils # (Auto) 7.0, Lymphocytes # (Auto) 1.6, Monocytes # (Auto) 1.0H, Eosinophils # (Auto) 0.3, Basophils # (Auto) 0.1, Nucleated Red Blood Cells % (auto) 0.0, Anion Gap 8, Glomerular Filtration Rate > 60.0, Calcium Level 9.2 Current Medications Current Medications Current Medications Medications (Trade) Dose Ordered Sig/Cj Route PRN Reason Start Time Stop Time Status Last Admin Dose Admin Acetaminophen (Tylenol Tab) 650 mg Q4HP PRN PO fever/MILD PAIN 11/06/19 16:15 11/09/19 14:23 DC 11/07/19 08:35 Acetaminophen (Tylenol Tab) 1,000 mg TID PO 11/09/19 16:00 11/09/19 15:15 DC Acetaminophen (Tylenol Tab) 1,000 mg TID PO 11/09/19 16:00 11/12/19 08:59 Acetaminophen (Tylenol Tab) 1,000 mg TIDP PRN PO PAIN 11/09/19 16:00 11/09/19 15:38 DC Albuterol/ Ipratropium (Duoneb (Ipr 0.5mg/Alb 2.5mg)) 3 ml RTID NEB 11/06/19 20:00 11/10/19 16:35 DC 11/10/19 07:52 Albuterol/ Ipratropium (Duoneb (Ipr 0.5mg/Alb 2.5mg)) 3 ml RTID PRN NEB SHORTNESS OF BREATH 11/10/19 16:45 Aspirin (Ecotrin) 81 mg DAILY PO 11/07/19 09:00 11/12/19 08:59 Atorvastatin Calcium (Lipitor) 40 mg QHS PO 11/06/19 21:00 Cancel Atorvastatin Calcium (Lipitor) 80 mg QHS PO 11/06/19 21:00 11/11/19 21:01 Docusate Sodium (Colace) 100 mg BID PO 11/06/19 21:00 11/12/19 08:57 Escitalopram Oxalate (Lexapro) 20 mg QHS PO 11/09/19 21:00 11/11/19 21:01 Gabapentin (Neurontin) 300 mg TID PO 11/10/19 21:00 11/12/19 08:59 Home Med (Med Rec Complete!) ASDIRECTED XX 11/06/19 17:45 11/06/19 17:44 DC Hydrochlorothiazide (Hydrodiuril) 25 mg DAILY PO 11/07/19 09:00 11/12/19 08:59 Lidocaine HCl (Lidocaine 2% Urojet) APPLY TO CATHETER FOR P... ASDIRECTED PRN TOP FOR COMFORT 11/11/19 20:30 11/11/19 21:08 Lisinopril (Prinivil) 40 mg DAILY PO 11/07/19 09:00 11/12/19 08:59 Magnesium Hydroxide (Milk Of Magnesia) 30 ml DAILYPRN PRN PO CONSTIPATION 11/06/19 16:15 Metoprolol Tartrate (Lopressor) 50 mg BID PO 11/06/19 21:00 11/07/19 09:48 DC 11/07/19 08:31 Metoprolol Tartrate (Lopressor) 75 mg BID PO 11/07/19 21:00 11/12/19 09:00 Miscellaneous (Unresolved Clarification Entry) SEE LABEL COMMENTS DAILY XX 11/06/19 09:00 11/07/19 09:55 DC 11/06/19 18:17 Nicotine (Nicoderm Cq 21mg) 1 patch DAILY TD 11/06/19 09:00 11/12/19 08:58 Pantoprazole Sodium (Protonix) 40 mg DAILY PO 11/06/19 09:00 11/12/19 08:59 Senna (Senokot) 1 tab QHS PO 11/06/19 21:00 11/11/19 21:01 Tamsulosin HCl (Flomax) 0.8 mg QHS PO 11/06/19 21:00 11/11/19 21:01 Ticagrelor (Brilinta) 90 mg BID PO 11/06/19 21:00 11/12/19 08:59 Trazodone HCl (Desyrel) 25 mg DAILY@0000 PO 11/09/19 00:00 11/12/19 00:14 Trazodone HCl (Desyrel) 25 mg QHSP PRN PO INSOMNIA 11/06/19 16:15 11/08/19 11:19 ANNE CANSECO MD Nov 12, 2019 10:48
--- NOTE | 2019-11-12 12:25 | REP ---
CT BRAIN WITHOUT CONTRAST: HISTORY: Rule out evolving infarct or new hemorrhage. No comparison images are available. FINDINGS: There is an area of low density involving the basal ganglia on the right consistent with recent infarction. There is some edema and swelling. There is no evidence of intracranial hemorrhage. Heredia-white differentiation pattern is otherwise normal. No extra-axial fluid collection or mass is seen. No midline shift is observed. IMPRESSION: Findings consistent with recent infarct involving the right basal ganglia. No evidence of hemorrhage. Electronically Signed by Wally Martínez MD 11/12/2019 07:46 P
[2019-11-12 14:00] VITALS: BP 102/61
--- NOTE | 2019-11-12 17:46 | REP ---
MRI brain without contrast: History: Rule out evolving infarct or new hemorrhage. Comparison is made with today's head CT study. Comparison MRI study is from October 31, 2019. Technique: Axial and sagittal imaging planes are utilized for T1 and T2-weighted scans. Sequences include spin-echo, fast spin echo, FLAIR, and diffusion weighted sequences. MRI findings: No bony calvarial lesion is seen. Craniocervical junction and upper cervical cord are normal in appearance. There is signal intensity consistent with blood products and a right basal ganglia and right ankle wound. This was observed on the previous study. There is some surrounding edema. There is a little more extensive surrounding edema but no new hemorrhage is seen. The previously noted areas of restricted diffusion are again seen slightly less prominent including right occipital lobe and punctate periventricular right parietal lobe foci of restricted diffusion. The previously noted restricted diffusion pattern in the temporal tip on the right is not apparent today. There is less mass effect on the frontal horn of the lateral ventricle when compared with the prior MRI study. No new area of restricted diffusion is seen. No extra-axial fluid collection is seen. Impression: Evolutionary changes in previously noted right basal ganglia hemorrhagic infarction. There are subacute evolving infarct changes in the right occipital lobe. The right inferior temporal lobe area of restricted diffusion has improved. There is some T2 hyperintensity in the anteromedial temporal lobe unchanged. There is a little more edema surrounding the ganglia lesions but less overall mass effect. No new lesion is seen. Electronically Signed by Wally Martínez MD 11/12/2019 07:52 P
[2019-11-12 20:00] VITALS: BP 114/72
[2019-11-12] MEDS: TAMSULOSIN 0.4 MG CAP PO SCH (21:41)
[2019-11-12] MEDS: FLUoxetine 20 MG CAP PO SCH (21:41)
[2019-11-12] MEDS: ATORVASTATIN 20 MG TAB PO SCH (21:42)
[2019-11-12] MEDS: SENNA 8.6 MG TAB (SENOKOT) PO SCH (21:42)
[2019-11-13 01:14] VITALS: BP 125/63
[2019-11-13 06:00] VITALS: BP 125/68
[2019-11-13] MEDS: DOCUSATE SODIUM 100 MG CAP PO SCH ×3 (08:48→20:48)
[2019-11-13] MEDS: TICAGRELOR 90 MG TABLET (BRILINTA) PO SCH ×2 (08:49→20:49)
[2019-11-13] MEDS: lisinopriL 40 MG TAB PO SCH (08:49)
[2019-11-13] MEDS: PANTOPRAZOLE 40MG TAB (PROTONIX) PO SCH (08:49)
[2019-11-13] MEDS: GABAPENTIN 300 MG CAP PO SCH ×3 (08:49→20:49)
[2019-11-13] MEDS: NICOTINE 21MG/24HR 1 EA TRANSDERMAL TD SCH (08:49)
[2019-11-13] MEDS: hydroCHLOROthiazide 25 MG TAB PO SCH (08:50)
[2019-11-13] MEDS: ASPIRIN 81 MG ENTERIC TAB PO SCH (08:50)
[2019-11-13] MEDS: ACETAMINOPHEN 500 MG TAB PO SCH ×3 (08:50→20:48)
[2019-11-13] MEDS: METOPROLOL TART 25 MG TABLET PO SCH ×2 (08:51→20:49)
[2019-11-13] MEDS: REMEDY PHYTOPLEX Z-GUARD PASTE 113GM TUBE (FROM STOREROOM PRODUCT) TOP SCH ×3 (08:51→20:49)
--- NOTE | 2019-11-13 12:53 | IPNPDOC ---
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 REVIEW OF SYSTEMS: The following is a completed review of systems and has been reviewed. Review of systems otherwise unremarkable. PAIN: Patient self reports no pain EYES: decreased vision on the left EARS, NOSE, & THROAT: +dysphagia CARDIOVASCULAR: Denies chest pain or palpitations PULMONARY: Denies shortness of breath, +cough (improving) GASTROINTESTINAL: Denies constipation/diarrhea GENITOURINARY: urinary retention (chronic) MUSCULOSKELETAL: NEUROLOGICAL:left sided paresis HEMATOLOGICAL: denies easy bruising SKIN: left toe ulcer PSYCHIATRIC: Unremarkable All other review of systems found to be negative. PHYSICAL EXAMINATION: VITAL SIGNS: Please see below. GENERAL: Pleasant and cooperative. No acute distress. HEENT: PERRL. Extraocular movements grossly intact Clear conjunctiva CARDIOVASCULAR: Regular rate and rhythm. No murmurs, rubs, or gallops LUNGS: +scatttered wheezes. No rhonchi ABDOMEN: Soft, nontender, nondistended. Positive bowel sounds. Normal active bowel sounds NEUROLOGICAL: Alert and oriented times three. Cranial nerves II through XII grossly intact. Sensation to light touch groslyinact in all4 extremities, + extinction to touch on the left (+)left eye-brow sparing left facial droop (-) Babinksi bilat 1/4+ tone left elbow extensors EXTREMITIES: 5\5 strength right upper extremities. Left UE 1/5 elbow flexors, 1/5 elbow extensors, 0/5 wrist extension, 0/5 health nurse 5/5 RLE, 3/5 left hip flexion, knee extension, 3/5 ankle DF, EHL, and PF SKIN: left D1-D2 interdigit ulcer (dry) coccyx area erythematous, blanchable ASSESSMENT:63-year-old M with past medical history of HTN who presents status post stroke PLAN: 1.Rehab-PT advance gait training, trunk control, strengthen, stretch, maintain ROM bilat LE- e-stim prn OT- advance ADL management, strengthen, stretch, maintain ROM bilat UE, e-stim prn, left shoulder stabilization, consider taping, sling during ambulation for shoulder protectin 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 Neuro: s/p right MCA infarct s/p TPA and ICA/MCA thrombectomy with stenting with right basal ganglia and willams radiata hemorrhagic conversion - patient with dysphagia and left sided paresis, -11-12-19 patient with new flaccid paresis of LUE and weaker LLE, concern for new infarct or hemorrhage- CTH and MRI negative for acute hemorrhage/conversion or new infarct, decadron started to treat edema seen on MRI in the are of the old basal ganglia hemorrhagic infarct with hope of motor return on left side -c/u ASA, Brillinta, BP control, and statin for secondary stroke prevention -will need neurology referral -f/u Dr Molina neurosurgeon upon d/c 3. Cardiac: hx HTN, c/u metoprolol, lisinopril, HCTZ- medicine consulted to assist in management, recent ECHO at [facility] not suggestive of systolic/diastolic CHF -HLD- c/u statin 4. Resp: hx of smoking with cough, c/u Duonebs standing, patient wheezing one xam, monitor for infection, encourage incentive spirometry -nicotine patch decreased dosing today -hx of YAN but did not finish getting fitted for CPAP mask, c/u nocturnal 02, will need referral to pulmonology 5. Vasc: recent acute occlusion left superficial femoral artery, patient asymptomatic, will consider inhouse vascular consult prn 6. : hx of prostate cancer s/p prostatotomy- patient self-caths about once a month at home, TOV starting today -c/u FLomax 0.8 mg qhs 7. DVT ppx: Teds, Dopplers negative, avoiding chemoprophylaxis given recent hemorrhage 8. GI ppx: protonix 9. Psych: insomnia- c/u trazodone -c/u prozac 20mg qHS for motor recovery in stroke -hx of chronic ETOH use- c/u gabapentin 300 mg TID 10. Skin- c/u barrier cream to sacrum, optifoam ordered, and roho cushion for wheelchair usage to prevent skin breakdown 11. Pain: c/u tylenol to standing to help with tailbone pain 12. Disp: tbd Allergies Coded Allergies: No Known Allergies (Verified Allergy, Unknown, 11/06/19) Vital Signs Vital Signs Date Time Temp Pulse Resp B/P (MAP) Pulse Ox O2 Delivery O2 Flow Rate FiO2 11/13/19 08:51 67 125/68 11/13/19 06:00 97.2 18 95 Room Air 11/08/19 05:27 2.0 Current Medications Current Medications Current Medications Medications (Trade) Dose Ordered Sig/Cj Route PRN Reason Start Time Stop Time Status Last Admin Dose Admin Acetaminophen (Tylenol Tab) 650 mg Q4HP PRN PO fever/MILD PAIN 11/06/19 16:15 11/09/19 14:23 DC 11/07/19 08:35 Acetaminophen (Tylenol Tab) 1,000 mg TID PO 11/09/19 16:00 11/09/19 15:15 DC Acetaminophen (Tylenol Tab) 1,000 mg TID PO 11/09/19 16:00 11/13/19 08:50 Acetaminophen (Tylenol Tab) 1,000 mg TIDP PRN PO PAIN 11/09/19 16:00 11/09/19 15:38 DC Albuterol/ Ipratropium (Duoneb (Ipr 0.5mg/Alb 2.5mg)) 3 ml RTID NEB 11/06/19 20:00 11/10/19 16:35 DC 11/10/19 07:52 Albuterol/ Ipratropium (Duoneb (Ipr 0.5mg/Alb 2.5mg)) 3 ml RTID PRN NEB SHORTNESS OF BREATH 11/10/19 16:45 Aspirin (Ecotrin) 81 mg DAILY PO 11/07/19 09:00 11/13/19 08:50 Atorvastatin Calcium (Lipitor) 40 mg QHS PO 11/06/19 21:00 Cancel Atorvastatin Calcium (Lipitor) 80 mg QHS PO 11/06/19 21:00 11/12/19 21:42 Dexamethasone (Decadron) 2 mg TID PO 11/12/19 21:00 11/12/19 18:21 DC Dexamethasone (Decadron) 2 mg TID PO 11/12/19 21:00 11/13/19 08:49 Docusate Sodium (Colace) 100 mg BID PO 11/06/19 21:00 11/12/19 21:42 Escitalopram Oxalate (Lexapro) 20 mg QHS PO 11/09/19 21:00 11/12/19 14:03 DC 11/11/19 21:01 Fluoxetine HCl (PROzac) 20 mg QHS PO 11/12/19 21:00 11/12/19 21:41 Gabapentin (Neurontin) 300 mg TID PO 11/10/19 21:00 11/13/19 08:49 Home Med (Med Rec Complete!) ASDIRECTED XX 11/06/19 17:45 11/06/19 17:44 DC Hydrochlorothiazide (Hydrodiuril) 25 mg DAILY PO 11/07/19 09:00 11/13/19 08:50 Lidocaine HCl (Lidocaine 2% Urojet) APPLY TO CATHETER FOR P... ASDIRECTED PRN TOP FOR COMFORT 11/11/19 20:30 11/11/19 21:08 Lisinopril (Prinivil) 40 mg DAILY PO 11/07/19 09:00 11/13/19 08:49 Magnesium Hydroxide (Milk Of Magnesia) 30 ml DAILYPRN PRN PO CONSTIPATION 11/06/19 16:15 Metoprolol Tartrate (Lopressor) 50 mg BID PO 11/06/19 21:00 11/07/19 09:48 DC 11/07/19 08:31 Metoprolol Tartrate (Lopressor) 75 mg BID PO 11/07/19 21:00 11/13/19 08:51 Miscellaneous (Unresolved Clarification Entry) SEE LABEL COMMENTS DAILY XX 11/06/19 09:00 11/07/19 09:55 DC 11/06/19 18:17 Nicotine (Nicoderm Cq 21mg) 1 patch DAILY TD 11/06/19 09:00 11/13/19 08:49 Pantoprazole Sodium (Protonix) 40 mg DAILY PO 11/06/19 09:00 11/13/19 08:49 Senna (Senokot) 1 tab QHS PO 11/06/19 21:00 11/12/19 21:42 Tamsulosin HCl (Flomax) 0.8 mg QHS PO 11/06/19 21:00 11/12/19 21:41 Ticagrelor (Brilinta) 90 mg BID PO 11/06/19 21:00 11/13/19 08:49 Trazodone HCl (Desyrel) 25 mg DAILY@0000 PO 11/09/19 00:00 11/12/19 17:57 DC 11/12/19 00:14 Trazodone HCl (Desyrel) 25 mg DAILY@2200 PO 11/12/19 22:00 11/12/19 21:41 Trazodone HCl (Desyrel) 25 mg QHSP PRN PO INSOMNIA 11/06/19 16:15 11/08/19 11:19 ANNE CANSECO MD Nov 13, 2019 12:53
[2019-11-13 14:00] VITALS: BP 97/52
[2019-11-13] MEDS: IPRATROPIUM 0.5MG/ALBUTEROL 2.5MG INH SOL UD 3ML (DUONEB)(J7620) NEB SCH (14:00)
[2019-11-13] MEDS: NICOTINE 14 MG/24 HR TRANSDERMAL TD SCH (16:31)
[2019-11-13 20:00] VITALS: BP 113/70
[2019-11-13] MEDS: FLUoxetine 20 MG CAP PO SCH (20:48)
[2019-11-13] MEDS: ATORVASTATIN 20 MG TAB PO SCH (20:48)
[2019-11-13] MEDS: TAMSULOSIN 0.4 MG CAP PO SCH (20:48)
[2019-11-13] MEDS: SENNA 8.6 MG TAB (SENOKOT) PO SCH (20:49)
[2019-11-13] MEDS: traZODone 25MG PER 1/2 TABLET PO SCH (20:49)
[2019-11-14] MEDS: LIDOCAINE 2% 5ML JELLY UROJET TOP PRN (05:44)
[2019-11-14 06:00] VITALS: BP 108/65
[2019-11-14] MEDS: IPRATROPIUM 0.5MG/ALBUTEROL 2.5MG INH SOL UD 3ML (DUONEB)(J7620) NEB SCH ×3 (08:00→20:48)
[2019-11-14] MEDS: ACETAMINOPHEN 500 MG TAB PO SCH ×3 (09:20→21:56)
[2019-11-14] MEDS: NICOTINE 14 MG/24 HR TRANSDERMAL TD SCH (09:26)
[2019-11-14] MEDS: PANTOPRAZOLE 40MG TAB (PROTONIX) PO SCH (09:27)
[2019-11-14] MEDS: lisinopriL 40 MG TAB PO SCH (09:27)
[2019-11-14] MEDS: GABAPENTIN 300 MG CAP PO SCH ×3 (09:27→21:56)
[2019-11-14] MEDS: hydroCHLOROthiazide 25 MG TAB PO SCH (09:28)
[2019-11-14] MEDS: METOPROLOL TART 25 MG TABLET PO SCH ×2 (09:28→21:00)
[2019-11-14] MEDS: ASPIRIN 81 MG ENTERIC TAB PO SCH (09:28)
[2019-11-14] MEDS: DOCUSATE SODIUM 100 MG CAP PO SCH ×2 (09:29→21:57)
[2019-11-14] MEDS: TICAGRELOR 90 MG TABLET (BRILINTA) PO SCH ×2 (09:29→21:57)
[2019-11-14] MEDS: REMEDY PHYTOPLEX Z-GUARD PASTE 113GM TUBE (FROM STOREROOM PRODUCT) TOP SCH ×3 (10:30→21:58)
--- NOTE | 2019-11-14 11:30 | IPNPDOC ---
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 He denies having any pain in his left leg or shoulder REVIEW OF SYSTEMS: The following is a completed review of systems and has been reviewed. Review of systems otherwise unremarkable. PAIN: Patient self reports no pain EYES: decreased vision on the left EARS, NOSE, & THROAT: +dysphagia (improving) CARDIOVASCULAR: Denies chest pain or palpitations PULMONARY: Denies shortness of breath, +cough (improving) GASTROINTESTINAL: Denies constipation/diarrhea GENITOURINARY: urinary retention (chronic) MUSCULOSKELETAL: NEUROLOGICAL:left sided paresis HEMATOLOGICAL: denies easy bruising SKIN: left toe ulcer PSYCHIATRIC: Unremarkable All other review of systems found to be negative. PHYSICAL EXAMINATION: VITAL SIGNS: Please see below. GENERAL: Pleasant and cooperative. No acute distress. HEENT: PERRL. Extraocular movements grossly intact Clear conjunctiva CARDIOVASCULAR: Regular rate and rhythm. No murmurs, rubs, or gallops LUNGS: +scattered wheezes. No rhonchi ABDOMEN: Soft, nontender, nondistended. Positive bowel sounds. Normal active bowel sounds NEUROLOGICAL: Alert and oriented times three. Cranial nerves II through XII grossly intact. Sensation to light touch groslyinact in all4 extremities, + extinction to touch on the left (+)left eye-brow sparing left facial droop (improving) (-) Babinksi bilat 1/4+ tone left elbow extensors EXTREMITIES: 5\5 strength right upper extremities. Left UE 1/5 elbow flexors, 1/5 elbow extensors, 0/5 wrist extension, 0/5 preparation operator 5/5 RLE, 3+/5 left hip flexion, knee extension, 4/5 ankle DF, EHL, and PF SKIN: left D1-D2 interdigit ulcer (dry) coccyx area erythematous, blanchable ASSESSMENT:63-year-old M with past medical history of HTN who presents status post stroke PLAN: 1.Rehab-PT advance gait training, trunk control, strengthen, stretch, maintain ROM bilat LE- e-stim prn OT- advance ADL management, strengthen, stretch, maintain ROM bilat UE, e-stim prn, left shoulder stabilization, consider taping, sling during ambulation for shoulder protectin 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 Neuro: s/p right MCA infarct s/p TPA and ICA/MCA thrombectomy with stenting with right basal ganglia and willams radiata hemorrhagic conversion - patient with dysphagia and left sided paresis, -11-12-19 patient with new flaccid paresis of LUE and weaker LLE, concern for new infarct or hemorrhage- CTH and MRI negative for acute hemorrhage/conversion or new infarct, decadron started to treat edema seen on MRI in the are of the old basal ganglia hemorrhagic infarct with hope of motor return on left side -c/u ASA, Brillinta, BP control, and statin for secondary stroke prevention -will need neurology referral -f/u Dr Molina neurosurgeon upon d/c 3. Cardiac: hx HTN, c/u metoprolol, lisinopril, HCTZ- medicine consulted to assist in management, recent ECHO at [facility] not suggestive of systolic/diastolic CHF -HLD- c/u statin 4. Resp: hx of smoking with cough, c/u Duonebs standing, patient wheezing one exam, monitor for infection, encourage incentive spirometry -nicotine patch decreased dosing -hx of YAN but did not finish getting fitted for CPAP mask, c/u nocturnal 02, will need referral to pulmonology 5. Vasc: recent acute occlusion left superficial femoral artery, patient asymptomatic, will consider inhouse vascular consult prn 6. : hx of prostate cancer s/p prostatotomy- patient self-caths about once a month at home, TOV, patient able to assist with self-cathing -c/u FLomax 0.8 mg qhs 7. DVT ppx: Teds, Dopplers negative, avoiding chemoprophylaxis given recent hemorrhage 8. GI ppx: protonix 9. Psych: insomnia- c/u trazodone -c/u prozac 20mg qHS for motor recovery in stroke -hx of chronic ETOH use- c/u gabapentin 300 mg TID 10. Skin- c/u barrier cream to sacrum, optifoam ordered, and roho cushion for wheelchair usage to prevent skin breakdown 11. Pain: c/u tylenol to standing to help with tailbone pain 12. Disp: tbd Allergies Coded Allergies: No Known Allergies (Verified Allergy, Unknown, 11/06/19) Vital Signs Vital Signs Date Time Temp Pulse Resp B/P (MAP) Pulse Ox O2 Delivery O2 Flow Rate FiO2 11/14/19 09:28 72 112/62 11/14/19 06:00 97.9 17 100 Room Air 11/08/19 05:27 2.0 Current Medications Current Medications Current Medications Medications (Trade) Dose Ordered Sig/Cj Route PRN Reason Start Time Stop Time Status Last Admin Dose Admin Acetaminophen (Tylenol Tab) 650 mg Q4HP PRN PO fever/MILD PAIN 11/06/19 16:15 11/09/19 14:23 DC 11/07/19 08:35 Acetaminophen (Tylenol Tab) 1,000 mg TID PO 11/09/19 16:00 11/09/19 15:15 DC Acetaminophen (Tylenol Tab) 1,000 mg TID PO 11/09/19 16:00 11/14/19 09:20 Acetaminophen (Tylenol Tab) 1,000 mg TIDP PRN PO PAIN 11/09/19 16:00 11/09/19 15:38 DC Albuterol/ Ipratropium (Duoneb (Ipr 0.5mg/Alb 2.5mg)) 3 ml RTID NEB 11/06/19 20:00 11/10/19 16:35 DC 11/10/19 07:52 Albuterol/ Ipratropium (Duoneb (Ipr 0.5mg/Alb 2.5mg)) 3 ml RTID NEB 11/13/19 14:00 Albuterol/ Ipratropium (Duoneb (Ipr 0.5mg/Alb 2.5mg)) 3 ml RTID PRN NEB SHORTNESS OF BREATH 11/10/19 16:45 11/13/19 12:47 DC Aspirin (Ecotrin) 81 mg DAILY PO 11/07/19 09:00 11/14/19 09:28 Atorvastatin Calcium (Lipitor) 40 mg QHS PO 11/06/19 21:00 Cancel Atorvastatin Calcium (Lipitor) 80 mg QHS PO 11/06/19 21:00 11/13/19 20:48 Dexamethasone (Decadron) 2 mg TID PO 11/12/19 21:00 11/12/19 18:21 DC Dexamethasone (Decadron) 2 mg TID PO 11/12/19 21:00 11/14/19 09:28 Docusate Sodium (Colace) 100 mg BID PO 11/06/19 21:00 11/14/19 09:29 Escitalopram Oxalate (Lexapro) 20 mg QHS PO 11/09/19 21:00 11/12/19 14:03 DC 11/11/19 21:01 Fluoxetine HCl (PROzac) 20 mg QHS PO 11/12/19 21:00 11/13/19 20:48 Gabapentin (Neurontin) 300 mg TID PO 11/10/19 21:00 11/14/19 09:27 Home Med (Med Rec Complete!) ASDIRECTED XX 11/06/19 17:45 11/06/19 17:44 DC Hydrochlorothiazide (Hydrodiuril) 25 mg DAILY PO 11/07/19 09:00 11/14/19 09:28 Lidocaine HCl (Lidocaine 2% Urojet) APPLY TO CATHETER FOR P... ASDIRECTED PRN TOP FOR COMFORT 11/11/19 20:30 11/14/19 05:44 Lisinopril (Prinivil) 40 mg DAILY PO 11/07/19 09:00 11/14/19 09:27 Magnesium Hydroxide (Milk Of Magnesia) 30 ml DAILYPRN PRN PO CONSTIPATION 11/06/19 16:15 Metoprolol Tartrate (Lopressor) 50 mg BID PO 11/06/19 21:00 11/07/19 09:48 DC 11/07/19 08:31 Metoprolol Tartrate (Lopressor) 75 mg BID PO 11/07/19 21:00 11/14/19 09:28 Miscellaneous (Unresolved Clarification Entry) SEE LABEL COMMENTS DAILY XX 11/06/19 09:00 11/07/19 09:55 DC 11/06/19 18:17 Nicotine (Nicoderm Cq 14mg) 1 patch DAILY TD 11/13/19 14:00 11/14/19 09:26 Nicotine (Nicoderm Cq 21mg) 1 patch DAILY TD 11/06/19 09:00 11/13/19 12:47 DC 11/13/19 08:49 Pantoprazole Sodium (Protonix) 40 mg DAILY PO 11/06/19 09:00 11/14/19 09:27 Senna (Senokot) 1 tab QHS PO 11/06/19 21:00 11/13/19 20:49 Tamsulosin HCl (Flomax) 0.8 mg QHS PO 11/06/19 21:00 11/13/19 20:48 Ticagrelor (Brilinta) 90 mg BID PO 11/06/19 21:00 11/14/19 09:29 Trazodone HCl (Desyrel) 25 mg DAILY@0000 PO 11/09/19 00:00 11/12/19 17:57 DC 11/12/19 00:14 Trazodone HCl (Desyrel) 25 mg DAILY@2200 PO 11/12/19 22:00 11/13/19 20:49 Trazodone HCl (Desyrel) 25 mg QHSP PRN PO INSOMNIA 11/06/19 16:15 11/08/19 11:19 ANNE CANSECO MD Nov 14, 2019 11:30
[2019-11-14 14:00] VITALS: BP 110/72
[2019-11-14] MEDS: SENNA 8.6 MG TAB (SENOKOT) PO SCH (21:00)
[2019-11-14 21:40] VITALS: BP 100/58
[2019-11-14] MEDS: traZODone 25MG PER 1/2 TABLET PO SCH (21:55)
[2019-11-14] MEDS: TAMSULOSIN 0.4 MG CAP PO SCH (21:55)
[2019-11-14] MEDS: FLUoxetine 20 MG CAP PO SCH (21:56)
[2019-11-14] MEDS: ATORVASTATIN 20 MG TAB PO SCH (21:56)
[2019-11-15] MEDS: LIDOCAINE 2% 5ML JELLY UROJET TOP PRN (00:46)
[2019-11-15 06:00] VITALS: BP 111/68
[2019-11-15] MEDS: IPRATROPIUM 0.5MG/ALBUTEROL 2.5MG INH SOL UD 3ML (DUONEB)(J7620) NEB SCH ×3 (07:34→18:53)
[2019-11-15 09:03] LABS: BASO % 0.5 % (0.0-1.0); EOS % 0.1 % (0.0-3.0); HEMATOCRIT 53.4 % (42.0-52.0); HEMOGLOBIN 17.6 g/dl (13.5-17.5); LYMPH # 1.4 10^3/uL (1.5-5.0); LYMPH % 16.6 % (24.0-44.0); MEAN CORPUSCULAR HEMOGLOBIN 33.6 pg (27.0-33.0); MEAN CORPUSCULAR VOLUME 101.9 fl (80.0-96.0); MONO # 0.5 10^3/uL (0.0-0.8); MONO % 5.4 % (0.0-5.0); NEUTROPHILS # 6.5 10^3/uL (1.5-8.5); PLATELET COUNT, AUTOMATED 337 10^3/uL (150-450); RED BLOOD COUNT 5.24 10^6/uL (4.30-6.10); WHITE BLOOD COUNT 8.4 10^3/uL (4.0-10.0)
[2019-11-15] MEDS: ACETAMINOPHEN 500 MG TAB PO SCH ×3 (09:20→22:04)
[2019-11-15] MEDS: GABAPENTIN 300 MG CAP PO SCH ×3 (09:21→22:02)
[2019-11-15] MEDS: NICOTINE 14 MG/24 HR TRANSDERMAL TD SCH (09:21)
[2019-11-15] MEDS: ASPIRIN 81 MG ENTERIC TAB PO SCH (09:22)
[2019-11-15] MEDS: DOCUSATE SODIUM 100 MG CAP PO SCH ×2 (09:22→22:03)
[2019-11-15] MEDS: hydroCHLOROthiazide 25 MG TAB PO SCH (09:22)
[2019-11-15] MEDS: lisinopriL 40 MG TAB PO SCH (09:22)
[2019-11-15] MEDS: PANTOPRAZOLE 40MG TAB (PROTONIX) PO SCH (09:22)
[2019-11-15] MEDS: TICAGRELOR 90 MG TABLET (BRILINTA) PO SCH ×2 (09:22→22:03)
[2019-11-15] MEDS: METOPROLOL TART 25 MG TABLET PO SCH (09:24)
[2019-11-15 09:27] LABS: BLOOD UREA NITROGEN 37 MG/DL (7-18); CARBON DIOXIDE LEVEL 25 MEQ/L (21-32); CHLORIDE LEVEL 104 MEQ/L (98-107); CREATININE FOR GFR 1.09 MG/DL (0.70-1.30); GLOMERULAR FILTRATION RATE > 60.0 (>49); GLUCOSE, FASTING 115 MG/DL (70-100); POTASSIUM SERUM 3.7 MEQ/L (3.5-5.1); SODIUM LEVEL 139 MEQ/L (136-145)
[2019-11-15] MEDS: REMEDY PHYTOPLEX Z-GUARD PASTE 113GM TUBE (FROM STOREROOM PRODUCT) TOP SCH ×3 (09:31→22:05)
[2019-11-15 14:00] VITALS: BP 97/61
--- NOTE | 2019-11-15 16:42 | IPNPDOC ---
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 REVIEW OF SYSTEMS: The following is a completed review of systems and has been reviewed. Review of systems otherwise unremarkable. PAIN: Patient self reports no pain EYES: decreased vision on the left EARS, NOSE, & THROAT: +dysphagia (improving) CARDIOVASCULAR: Denies chest pain or palpitations PULMONARY: Denies shortness of breath, +cough (improving) GASTROINTESTINAL: Denies constipation/diarrhea GENITOURINARY: urinary retention (chronic) MUSCULOSKELETAL: NEUROLOGICAL:left sided paresis HEMATOLOGICAL: denies easy bruising SKIN: left toe ulcer PSYCHIATRIC: Unremarkable All other review of systems found to be negative. PHYSICAL EXAMINATION: VITAL SIGNS: Please see below. GENERAL: Pleasant and cooperative. No acute distress. HEENT: PERRL. Extraocular movements grossly intact Clear conjunctiva CARDIOVASCULAR: Regular rate and rhythm. No murmurs, rubs, or gallops LUNGS: +scattered wheezes. No rhonchi ABDOMEN: Soft, nontender, nondistended. Positive bowel sounds. Normal active bowel sounds NEUROLOGICAL: Alert and oriented times three. Cranial nerves II through XII grossly intact. Sensation to light touch groslyinact in all4 extremities, + extinction to touch on the left (+)left eye-brow sparing left facial droop (improving) (-) Babinksi bilat 1/4+ tone left elbow extensors EXTREMITIES: 5\5 strength right upper extremities. Left UE 1/5 elbow flexors, 1/5 elbow extensors, 0/5 wrist extension, 0/5 hydrogen braze furnace operator 5/5 RLE, 3+/5 left hip flexion, knee extension, 4/5 ankle DF, EHL, and PF SKIN: left D1-D2 interdigit ulcer (dry) coccyx area erythematous, blanchable ASSESSMENT:63-year-old M with past medical history of HTN who presents status post stroke PLAN: 1.Rehab-PT advance gait training, trunk control, strengthen, stretch, maintain ROM bilat LE- e-stim prn OT- advance ADL management, strengthen, stretch, maintain ROM bilat UE, e-stim prn, left shoulder stabilization, consider taping, sling during ambulation for shoulder protectin 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 Neuro: s/p right MCA infarct s/p TPA and ICA/MCA thrombectomy with stenting with right basal ganglia and willams radiata hemorrhagic conversion - patient with dysphagia and left sided paresis, -11-12-19 patient with new flaccid paresis of LUE and weaker LLE, concern for new infarct or hemorrhage- CTH and MRI negative for acute hemorrhage/conversion or new infarct, decadron started to treat edema seen on MRI in the are of the old basal ganglia hemorrhagic infarct with hope of motor return on left side -c/u ASA, Brillinta, BP control, and statin for secondary stroke prevention -will need neurology referral -f/u Dr Molina neurosurgeon upon d/c 3. Cardiac: hx HTN, c/u metoprolol, lisinopril, HCTZ- medicine consulted to assist in management, recent ECHO at [facility] not suggestive of systolic/diastolic CHF -HLD- c/u statin 4. Resp: hx of smoking with cough, c/u Duonebs standing, patient wheezing one exam, monitor for infection, encourage incentive spirometry -nicotine patch decreased dosing -hx of YAN but did not finish getting fitted for CPAP mask, c/u nocturnal 02, will need referral to pulmonology 5. Vasc: recent acute occlusion left superficial femoral artery, patient asymptomatic, will consider inhouse vascular consult prn 6. : hx of prostate cancer s/p prostatotomy- patient self-caths about once a month at home, TOV, patient able to assist with self-cathing -c/u FLomax 0.8 mg qhs 7. DVT ppx: Teds, Dopplers negative, avoiding chemoprophylaxis given recent hemorrhage 8. GI ppx: protonix 9. Psych: insomnia- c/u trazodone -c/u prozac 20mg qHS for motor recovery in stroke -hx of chronic ETOH use- c/u gabapentin 300 mg TID 10. Skin- c/u barrier cream to sacrum, optifoam ordered, and roho cushion for wheelchair usage to prevent skin breakdown 11. Pain: c/u tylenol to standing to help with tailbone pain 12. Disp: tbd Allergies Coded Allergies: No Known Allergies (Verified Allergy, Unknown, 11/06/19) Vital Signs Vital Signs Date Time Temp Pulse Resp B/P (MAP) Pulse Ox O2 Delivery O2 Flow Rate FiO2 11/15/19 14:00 97.3 74 18 97/61 (73) 95 Room Air Laboratory Data CBC/BMP Laboratory Tests 11/15/19 08:32 Labs 24H Laboratory Tests 2 11/15/19 08:32: Immature Granulocyte % (Auto) 0.4, Neutrophils (%) (Auto) 77.0H, Lymphocytes (%) (Auto) 16.6L, Monocytes (%) (Auto) 5.4H, Eosinophils (%) (Auto) 0.1, Basophils (%) (Auto) 0.5, Neutrophils # (Auto) 6.5, Lymphocytes # (Auto) 1.4L, Monocytes # (Auto) 0.5, Eosinophils # (Auto) 0.0, Basophils # (Auto) 0.0, Nucleated Red Blood Cells % (auto) 0.0, Anion Gap 10, Glomerular Filtration Rate > 60.0, Calcium Level 9.0 Current Medications Current Medications Current Medications Medications (Trade) Dose Ordered Sig/Cj Route PRN Reason Start Time Stop Time Status Last Admin Dose Admin Acetaminophen (Tylenol Tab) 650 mg Q4HP PRN PO fever/MILD PAIN 11/06/19 16:15 11/09/19 14:23 DC 11/07/19 08:35 Acetaminophen (Tylenol Tab) 1,000 mg TID PO 11/09/19 16:00 11/09/19 15:15 DC Acetaminophen (Tylenol Tab) 1,000 mg TID PO 11/09/19 16:00 11/15/19 16:01 Acetaminophen (Tylenol Tab) 1,000 mg TIDP PRN PO PAIN 11/09/19 16:00 11/09/19 15:38 DC Albuterol/ Ipratropium (Duoneb (Ipr 0.5mg/Alb 2.5mg)) 3 ml RTID NEB 11/06/19 20:00 11/10/19 16:35 DC 11/10/19 07:52 Albuterol/ Ipratropium (Duoneb (Ipr 0.5mg/Alb 2.5mg)) 3 ml RTID NEB 11/13/19 14:00 11/15/19 14:44 Albuterol/ Ipratropium (Duoneb (Ipr 0.5mg/Alb 2.5mg)) 3 ml RTID PRN NEB SHORTNESS OF BREATH 11/10/19 16:45 11/13/19 12:47 DC Aspirin (Ecotrin) 81 mg DAILY PO 11/07/19 09:00 11/15/19 09:22 Atorvastatin Calcium (Lipitor) 40 mg QHS PO 11/06/19 21:00 Cancel Atorvastatin Calcium (Lipitor) 80 mg QHS PO 11/06/19 21:00 11/14/19 21:56 Dexamethasone (Decadron) 2 mg TID PO 11/12/19 21:00 11/12/19 18:21 DC Dexamethasone (Decadron) 2 mg TID PO 11/12/19 21:00 11/15/19 16:01 Docusate Sodium (Colace) 100 mg BID PO 11/06/19 21:00 11/15/19 09:22 Escitalopram Oxalate (Lexapro) 20 mg QHS PO 11/09/19 21:00 11/12/19 14:03 DC 11/11/19 21:01 Fluoxetine HCl (PROzac) 20 mg QHS PO 11/12/19 21:00 11/14/19 21:56 Gabapentin (Neurontin) 300 mg TID PO 11/10/19 21:00 11/15/19 16:01 Home Med (Med Rec Complete!) ASDIRECTED XX 11/06/19 17:45 11/06/19 17:44 DC Hydrochlorothiazide (Hydrodiuril) 25 mg DAILY PO 11/07/19 09:00 11/15/19 09:22 Lidocaine HCl (Lidocaine 2% Urojet) APPLY TO CATHETER FOR P... ASDIRECTED PRN TOP FOR COMFORT 11/11/19 20:30 11/15/19 00:46 Lisinopril (Prinivil) 40 mg DAILY PO 11/07/19 09:00 11/15/19 09:22 Magnesium Hydroxide (Milk Of Magnesia) 30 ml DAILYPRN PRN PO CONSTIPATION 11/06/19 16:15 Metoprolol Tartrate (Lopressor) 50 mg BID PO 11/06/19 21:00 11/07/19 09:48 DC 11/07/19 08:31 Metoprolol Tartrate (Lopressor) 75 mg BID PO 11/07/19 21:00 11/15/19 09:24 Miscellaneous (Unresolved Clarification Entry) SEE LABEL COMMENTS DAILY XX 11/06/19 09:00 11/07/19 09:55 DC 11/06/19 18:17 Nicotine (Nicoderm Cq 14mg) 1 patch DAILY TD 11/13/19 14:00 11/15/19 09:21 Nicotine (Nicoderm Cq 21mg) 1 patch DAILY TD 11/06/19 09:00 11/13/19 12:47 DC 11/13/19 08:49 Pantoprazole Sodium (Protonix) 40 mg DAILY PO 11/06/19 09:00 11/15/19 09:22 Senna (Senokot) 1 tab QHS PO 11/06/19 21:00 11/13/19 20:49 Tamsulosin HCl (Flomax) 0.8 mg QHS PO 11/06/19 21:00 11/14/19 21:55 Ticagrelor (Brilinta) 90 mg BID PO 11/06/19 21:00 11/15/19 09:22 Trazodone HCl (Desyrel) 25 mg DAILY@0000 PO 11/09/19 00:00 11/12/19 17:57 DC 11/12/19 00:14 Trazodone HCl (Desyrel) 25 mg DAILY@2200 PO 11/12/19 22:00 11/14/19 21:55 Trazodone HCl (Desyrel) 25 mg QHSP PRN PO INSOMNIA 11/06/19 16:15 11/08/19 11:19 ANNE CANSECO MD Nov 15, 2019 16:42
[2019-11-15 21:00] VITALS: BP 100/60
[2019-11-15] MEDS: METOPROLOL TART 50 MG TAB PO SCH (21:00)
[2019-11-15] MEDS: TAMSULOSIN 0.4 MG CAP PO SCH (22:02)
[2019-11-15] MEDS: traZODone 25MG PER 1/2 TABLET PO SCH (22:02)
[2019-11-15] MEDS: SENNA 8.6 MG TAB (SENOKOT) PO SCH (22:03)
[2019-11-15] MEDS: FLUoxetine 20 MG CAP PO SCH (22:03)
[2019-11-15] MEDS: ATORVASTATIN 20 MG TAB PO SCH (22:04)
[2019-11-16 06:00] VITALS: BP 110/60
[2019-11-16] MEDS: IPRATROPIUM 0.5MG/ALBUTEROL 2.5MG INH SOL UD 3ML (DUONEB)(J7620) NEB SCH ×3 (06:59→19:36)
[2019-11-16] MEDS: REMEDY PHYTOPLEX Z-GUARD PASTE 113GM TUBE (FROM STOREROOM PRODUCT) TOP SCH ×3 (08:33→21:27)
[2019-11-16] MEDS: DOCUSATE SODIUM 100 MG CAP PO SCH ×2 (08:34→21:24)
[2019-11-16] MEDS: GABAPENTIN 300 MG CAP PO SCH ×3 (08:34→21:23)
[2019-11-16] MEDS: hydroCHLOROthiazide 25 MG TAB PO SCH (08:34)
[2019-11-16] MEDS: PANTOPRAZOLE 40MG TAB (PROTONIX) PO SCH (08:35)
[2019-11-16] MEDS: lisinopriL 20 MG TAB PO SCH (08:35)
[2019-11-16] MEDS: ASPIRIN 81 MG ENTERIC TAB PO SCH (08:35)
[2019-11-16] MEDS: METOPROLOL TART 50 MG TAB PO SCH ×2 (08:35→21:23)
[2019-11-16] MEDS: TICAGRELOR 90 MG TABLET (BRILINTA) PO SCH ×2 (08:36→21:24)
[2019-11-16] MEDS: ACETAMINOPHEN 500 MG TAB PO SCH ×3 (08:36→21:26)
[2019-11-16] MEDS: NICOTINE 14 MG/24 HR TRANSDERMAL TD SCH (08:36)
[2019-11-16 14:00] VITALS: BP 96/56
--- NOTE | 2019-11-16 17:57 | IPNPDOC ---
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 REVIEW OF SYSTEMS: The following is a completed review of systems and has been reviewed. Review of systems otherwise unremarkable. PAIN: Patient self reports no pain EYES: decreased vision on the left EARS, NOSE, & THROAT: +dysphagia (improving) CARDIOVASCULAR: Denies chest pain or palpitations PULMONARY: Denies shortness of breath, +cough (improving) GASTROINTESTINAL: Denies constipation/diarrhea GENITOURINARY: urinary retention (chronic) MUSCULOSKELETAL: NEUROLOGICAL:left sided paresis HEMATOLOGICAL: denies easy bruising SKIN: left toe ulcer PSYCHIATRIC: Unremarkable All other review of systems found to be negative. PHYSICAL EXAMINATION: VITAL SIGNS: Please see below. GENERAL: Pleasant and cooperative. No acute distress. HEENT: PERRL. Extraocular movements grossly intact Clear conjunctiva CARDIOVASCULAR: Regular rate and rhythm. No murmurs, rubs, or gallops LUNGS: +scattered wheezes. No rhonchi ABDOMEN: Soft, nontender, nondistended. Positive bowel sounds. Normal active bowel sounds NEUROLOGICAL: Alert and oriented times three. Cranial nerves II through XII grossly intact. Sensation to light touch groslyinact in all4 extremities, + extinction to touch on the left (+)left eye-brow sparing left facial droop (improving) (-) Babinksi bilat 1/4+ tone left elbow extensors EXTREMITIES: 5\5 strength right upper extremities. 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 installer 5/5 RLE, 3+/5 left hip flexion, knee extension, 4/5 ankle DF, EHL, and PF SKIN: left D1-D2 interdigit ulcer (dry) coccyx area erythematous, blanchable ASSESSMENT:63-year-old M with past medical history of HTN who presents status post stroke PLAN: 1.Rehab-PT advance gait training, trunk control, strengthen, stretch, maintain ROM bilat LE- e-stim prn OT- advance ADL management, strengthen, stretch, maintain ROM bilat UE, e-stim prn, left shoulder stabilization, consider taping, sling during ambulation for shoulder protectin 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 Neuro: s/p right MCA infarct s/p TPA and ICA/MCA thrombectomy with stenting with right basal ganglia and willams radiata hemorrhagic conversion - patient with dysphagia and left sided paresis, -11-12- patient with new flaccid paresis of LUE and weaker LLE, concern for new infarct or hemorrhage- CTH and MRI negative for acute hemorrhage/conversion or new infarct, tapering decadron started to treat edema seen on MRI in the are of the old basal ganglia hemorrhagic infarct with hope of motor return on left side -c/u ASA, Brillinta, BP control, and statin for secondary stroke prevention -will need neurology referral -f/u Dr Molina neurosurgeon upon d/c 3. Cardiac: hx HTN, c/u metoprolol (lowered to 50mg BID for soft BPs), lisinopril, HCTZ- medicine consulted to assist in management, recent ECHO at [facility] not suggestive of systolic/diastolic CHF -HLD- c/u statin 4. Resp: hx of smoking with cough, c/u Duonebs standing, patient wheezing one exam, monitor for infection, encourage incentive spirometry -nicotine patch decreased dosing -hx of YAN but did not finish getting fitted for CPAP mask, c/u nocturnal 02, will need referral to pulmonology 5. Vasc: recent acute occlusion left superficial femoral artery, patient asymptomatic, will consider inhouse vascular consult prn 6. : hx of prostate cancer s/p prostatotomy- patient self-caths about once a month at home, TOV, patient able to assist with self-cathing -c/u FLomax 0.8 mg qhs 7. DVT ppx: Teds, Dopplers negative, avoiding chemoprophylaxis given recent hemorrhage 8. GI ppx: protonix 9. Psych: insomnia- c/u trazodone -c/u prozac 20mg qHS for motor recovery in stroke -hx of chronic ETOH use- c/u gabapentin 300 mg TID 10. Skin- c/u barrier cream to sacrum, optifoam ordered, and roho cushion for wheelchair usage to prevent skin breakdown 11. Pain: c/u tylenol to standing to help with tailbone pain 12. Disp: tbd Allergies Coded Allergies: No Known Allergies (Verified Allergy, Unknown, 11/06/19) Vital Signs Vital Signs Date Time Temp Pulse Resp B/P (MAP) Pulse Ox O2 Delivery O2 Flow Rate FiO2 11/16/19 14:00 98.3 86 18 96/56 (69) 97 Room Air Current Medications Current Medications Current Medications Medications (Trade) Dose Ordered Sig/Cj Route PRN Reason Start Time Stop Time Status Last Admin Dose Admin Acetaminophen (Tylenol Tab) 650 mg Q4HP PRN PO fever/MILD PAIN 11/06/19 16:15 11/09/19 14:23 DC 11/07/19 08:35 Acetaminophen (Tylenol Tab) 1,000 mg TID PO 11/09/19 16:00 11/09/19 15:15 DC Acetaminophen (Tylenol Tab) 1,000 mg TID PO 11/09/19 16:00 11/16/19 16:22 Acetaminophen (Tylenol Tab) 1,000 mg TIDP PRN PO PAIN 11/09/19 16:00 11/09/19 15:38 DC Albuterol/ Ipratropium (Duoneb (Ipr 0.5mg/Alb 2.5mg)) 3 ml RTID NEB 11/06/19 20:00 11/10/19 16:35 DC 11/10/19 07:52 Albuterol/ Ipratropium (Duoneb (Ipr 0.5mg/Alb 2.5mg)) 3 ml RTID NEB 11/13/19 14:00 11/16/19 06:59 Albuterol/ Ipratropium (Duoneb (Ipr 0.5mg/Alb 2.5mg)) 3 ml RTID PRN NEB SHORTNESS OF BREATH 11/10/19 16:45 11/13/19 12:47 DC Aspirin (Ecotrin) 81 mg DAILY PO 11/07/19 09:00 11/16/19 08:35 Atorvastatin Calcium (Lipitor) 40 mg QHS PO 11/06/19 21:00 Cancel Atorvastatin Calcium (Lipitor) 80 mg QHS PO 11/06/19 21:00 11/15/19 22:04 Dexamethasone (Decadron) 2 mg TID PO 11/12/19 21:00 11/12/19 18:21 DC Dexamethasone (Decadron) 2 mg TID PO 11/12/19 21:00 11/16/19 16:21 Docusate Sodium (Colace) 100 mg BID PO 11/06/19 21:00 11/16/19 08:34 Escitalopram Oxalate (Lexapro) 20 mg QHS PO 11/09/19 21:00 11/12/19 14:03 DC 11/11/19 21:01 Fluoxetine HCl (PROzac) 20 mg QHS PO 11/12/19 21:00 11/15/19 22:03 Gabapentin (Neurontin) 300 mg TID PO 11/10/19 21:00 11/16/19 16:21 Home Med (Med Rec Complete!) ASDIRECTED XX 11/06/19 17:45 11/06/19 17:44 DC Hydrochlorothiazide (Hydrodiuril) 25 mg DAILY PO 11/07/19 09:00 11/16/19 08:34 Lidocaine HCl (Lidocaine 2% Urojet) APPLY TO CATHETER FOR P... ASDIRECTED PRN TOP FOR COMFORT 11/11/19 20:30 11/15/19 00:46 Lisinopril (Prinivil) 20 mg DAILY PO 11/16/19 09:00 11/16/19 08:35 Lisinopril (Prinivil) 40 mg DAILY PO 11/07/19 09:00 11/15/19 17:09 DC 11/15/19 09:22 Magnesium Hydroxide (Milk Of Magnesia) 30 ml DAILYPRN PRN PO CONSTIPATION 11/06/19 16:15 Metoprolol Tartrate (Lopressor) 50 mg BID PO 11/06/19 21:00 11/07/19 09:48 DC 11/07/19 08:31 Metoprolol Tartrate (Lopressor) 50 mg BID PO 11/15/19 21:00 11/16/19 08:35 Metoprolol Tartrate (Lopressor) 75 mg BID PO 11/07/19 21:00 11/15/19 17:09 DC 11/15/19 09:24 Miscellaneous (Unresolved Clarification Entry) SEE LABEL COMMENTS DAILY XX 11/06/19 09:00 11/07/19 09:55 DC 11/06/19 18:17 Nicotine (Nicoderm Cq 14mg) 1 patch DAILY TD 11/13/19 14:00 11/16/19 08:36 Nicotine (Nicoderm Cq 21mg) 1 patch DAILY TD 11/06/19 09:00 11/13/19 12:47 DC 11/13/19 08:49 Pantoprazole Sodium (Protonix) 40 mg DAILY PO 11/06/19 09:00 11/16/19 08:35 Senna (Senokot) 1 tab QHS PO 11/06/19 21:00 11/15/19 22:03 Tamsulosin HCl (Flomax) 0.8 mg QHS PO 11/06/19 21:00 11/15/19 22:02 Ticagrelor (Brilinta) 90 mg BID PO 11/06/19 21:00 11/16/19 08:36 Trazodone HCl (Desyrel) 25 mg DAILY@0000 PO 11/09/19 00:00 11/12/19 17:57 DC 11/12/19 00:14 Trazodone HCl (Desyrel) 25 mg DAILY@2200 PO 11/12/19 22:00 11/15/19 22:02 Trazodone HCl (Desyrel) 25 mg QHSP PRN PO INSOMNIA 11/06/19 16:15 11/08/19 11:19 NANE CANSECO MD Nov 16, 2019 17:57
--- NOTE | 2019-11-16 19:22 | IPN ---
DATE OF SERVICE: 11/16/2019 A 63-year-old male patient on the acute rehabilitation unit, status post right middle cerebral artery (MCA) infarct. He continues on aspirin and Brilinta. He will be following with Dr. Molina, neurosurgical, upon discharge. He straight catheterizes (caths) himself at home, but he was not drinking very much as he did not want to have to straight cath. Cortes catheter was put back in today as his BUN steadily was increasing; on 11/07/2019 it was 22, by 11/12/2019 it was 28, and on 11/15/2019 it was 37. Will recheck in the morning. Hemoglobin and hematocrit was slightly elevated but better than yesterday at 17.6 and 33.4. White count remained normal at 8.4, platelets were 337. He stated he was feeling well, and he would drink more fluid. Other than that, he had no complaints today. PHYSICAL EXAMINATION: Blood pressure 122/85, pulse 89, respirations 18, temperature 97, oxygen saturation 97% on room air. The patient is alert and oriented times three. Pupils are equal and reactive to light. Extraocular movements intact. Cornea and sclerae clear. Conjunctivae is normal. No facial asymmetry. Pharynx, tongue and gums pink and moist. Tongue is midline. Neck is supple without lymphadenopathy. No thyromegaly. No goiter. Chest: Scattered wheeze. No retraction, no rhonchi. Heart is regular. Abdomen: Benign. Bowel sounds are positive. Genitalia/Rectal: Not done. Cranial nerves II-XII grossly intact. Very slight left facial droop. IMPRESSION AND PLAN: Acute stroke with slight left-sided hemiparesis, showing some improvement. Right carotid stenosis, status post stent. Hemorrhagic conversion. Hypertension, stable. Hyperlipidemia. History of tobacco use. Chronic urinary retention; Cortes placed back in. Blood pressure stable on current medications. C Continue Cortes that was placed back in and Flomax. Anticoagulation. Continue Brilinta and aspirin. Patient is medically stable. BUN is slightly elevated. Fluids encouraged. Recheck labs in the morning.
[2019-11-16 21:04] VITALS: BP 114/64
[2019-11-16] MEDS: FLUoxetine 20 MG CAP PO SCH (21:23)
[2019-11-16] MEDS: traZODone 25MG PER 1/2 TABLET PO SCH (21:23)
[2019-11-16] MEDS: TAMSULOSIN 0.4 MG CAP PO SCH (21:24)
[2019-11-16] MEDS: ATORVASTATIN 20 MG TAB PO SCH (21:24)
[2019-11-16] MEDS: SENNA 8.6 MG TAB (SENOKOT) PO SCH (21:25)
[2019-11-17] MEDS: IPRATROPIUM 0.5MG/ALBUTEROL 2.5MG INH SOL UD 3ML (DUONEB)(J7620) NEB SCH ×3 (07:14→20:00)
[2019-11-17] MEDS: DOCUSATE SODIUM 100 MG CAP PO SCH ×2 (09:00→21:38)
[2019-11-17] MEDS: PANTOPRAZOLE 40MG TAB (PROTONIX) PO SCH (09:40)
[2019-11-17] MEDS: METOPROLOL TART 50 MG TAB PO SCH ×2 (09:40→21:39)
[2019-11-17] MEDS: GABAPENTIN 300 MG CAP PO SCH ×3 (09:40→21:38)
[2019-11-17] MEDS: hydroCHLOROthiazide 25 MG TAB PO SCH (09:40)
[2019-11-17] MEDS: TICAGRELOR 90 MG TABLET (BRILINTA) PO SCH ×2 (09:40→21:38)
[2019-11-17] MEDS: lisinopriL 20 MG TAB PO SCH (09:40)
[2019-11-17] MEDS: ASPIRIN 81 MG ENTERIC TAB PO SCH (09:40)
[2019-11-17] MEDS: ACETAMINOPHEN 500 MG TAB PO SCH ×3 (09:40→21:40)
[2019-11-17] MEDS: REMEDY PHYTOPLEX Z-GUARD PASTE 113GM TUBE (FROM STOREROOM PRODUCT) TOP SCH ×3 (09:41→21:40)
[2019-11-17] MEDS: NICOTINE 14 MG/24 HR TRANSDERMAL TD SCH (09:41)
[2019-11-17 14:00] VITALS: BP 105/55
[2019-11-17 21:00] VITALS: BP 110/60
[2019-11-17] MEDS: traZODone 25MG PER 1/2 TABLET PO SCH (21:38)
[2019-11-17] MEDS: SENNA 8.6 MG TAB (SENOKOT) PO SCH (21:38)
[2019-11-17] MEDS: TAMSULOSIN 0.4 MG CAP PO SCH (21:38)
[2019-11-17] MEDS: FLUoxetine 20 MG CAP PO SCH (21:38)
[2019-11-17] MEDS: ATORVASTATIN 20 MG TAB PO SCH (21:39)
[2019-11-18 06:00] VITALS: BP_SYST 111; BP_SYST 144; BP_DIAS 70; BP_DIAS 83
[2019-11-18] MEDS: IPRATROPIUM 0.5MG/ALBUTEROL 2.5MG INH SOL UD 3ML (DUONEB)(J7620) NEB SCH ×3 (08:00→20:00)
[2019-11-18] MEDS: METOPROLOL TART 50 MG TAB PO SCH ×2 (09:00→20:56)
[2019-11-18] MEDS: ASPIRIN 81 MG ENTERIC TAB PO SCH (09:08)
[2019-11-18] MEDS: NICOTINE 14 MG/24 HR TRANSDERMAL TD SCH (09:08)
[2019-11-18] MEDS: DOCUSATE SODIUM 100 MG CAP PO SCH ×2 (09:08→20:55)
[2019-11-18] MEDS: GABAPENTIN 300 MG CAP PO SCH ×3 (09:08→20:55)
[2019-11-18] MEDS: ACETAMINOPHEN 500 MG TAB PO SCH ×3 (09:09→20:57)
[2019-11-18] MEDS: PANTOPRAZOLE 40MG TAB (PROTONIX) PO SCH (09:09)
[2019-11-18] MEDS: lisinopriL 20 MG TAB PO SCH (09:09)
[2019-11-18] MEDS: hydroCHLOROthiazide 25 MG TAB PO SCH (09:10)
[2019-11-18] MEDS: TICAGRELOR 90 MG TABLET (BRILINTA) PO SCH ×2 (09:10→20:56)
[2019-11-18] MEDS: REMEDY PHYTOPLEX Z-GUARD PASTE 113GM TUBE (FROM STOREROOM PRODUCT) TOP SCH ×3 (09:11→21:00)
[2019-11-18 14:00] VITALS: BP 115/70
[2019-11-18 20:00] VITALS: BP 111/67
[2019-11-18] MEDS: SENNA 8.6 MG TAB (SENOKOT) PO SCH (20:55)
[2019-11-18] MEDS: FLUoxetine 20 MG CAP PO SCH (20:55)
[2019-11-18] MEDS: traZODone 25MG PER 1/2 TABLET PO SCH (20:56)
[2019-11-18] MEDS: TAMSULOSIN 0.4 MG CAP PO SCH (20:56)
[2019-11-18] MEDS: ATORVASTATIN 20 MG TAB PO SCH (20:56)
[2019-11-19 06:00] VITALS: BP 102/65
[2019-11-19 06:47] LABS: BASO # 0.1 10^3/uL (0.0-0.2); BASO % 0.6 % (0.0-1.0); EOS # 0.1 10^3/uL (0.0-0.5); EOS % 0.9 % (0.0-3.0); HEMATOCRIT 52.4 % (42.0-52.0); HEMOGLOBIN 17.7 g/dl (13.5-17.5); LYMPH # 1.8 10^3/uL (1.5-5.0); LYMPH % 17.3 % (24.0-44.0); MEAN CORPUSCULAR HEMOGLOBIN 33.4 pg (27.0-33.0); MEAN CORPUSCULAR HGB CONC 33.8 g/dl (32.0-36.5); MEAN CORPUSCULAR VOLUME 98.9 fl (80.0-96.0); MONO # 0.7 10^3/uL (0.0-0.8); MONO % 6.9 % (0.0-5.0); NEUTROPHILS # 7.5 10^3/uL (1.5-8.5); NEUTROPHILS % 73.8 % (36.0-66.0); PLATELET COUNT, AUTOMATED 276 10^3/uL (150-450); WHITE BLOOD COUNT 10.1 10^3/uL (4.0-10.0)
[2019-11-19 07:10] LABS: BLOOD UREA NITROGEN 25 MG/DL (7-18); CALCIUM LEVEL 9.1 MG/DL (8.8-10.2); CARBON DIOXIDE LEVEL 25 MEQ/L (21-32); CHLORIDE LEVEL 104 MEQ/L (98-107); CREATININE FOR GFR 0.72 MG/DL (0.70-1.30); GLOMERULAR FILTRATION RATE > 60.0 (>49); GLUCOSE, FASTING 99 MG/DL (70-100); POTASSIUM SERUM 4.1 MEQ/L (3.5-5.1); SODIUM LEVEL 137 MEQ/L (136-145)
[2019-11-19] MEDS: IPRATROPIUM 0.5MG/ALBUTEROL 2.5MG INH SOL UD 3ML (DUONEB)(J7620) NEB SCH ×3 (07:37→19:35)
[2019-11-19] MEDS: NICOTINE 14 MG/24 HR TRANSDERMAL TD SCH (08:13)
[2019-11-19] MEDS: ASPIRIN 81 MG ENTERIC TAB PO SCH (08:13)
[2019-11-19] MEDS: ACETAMINOPHEN 500 MG TAB PO SCH ×3 (08:14→21:59)
[2019-11-19] MEDS: TICAGRELOR 90 MG TABLET (BRILINTA) PO SCH ×2 (08:14→21:58)
[2019-11-19] MEDS: DOCUSATE SODIUM 100 MG CAP PO SCH ×2 (08:14→21:58)
[2019-11-19] MEDS: PANTOPRAZOLE 40MG TAB (PROTONIX) PO SCH (08:15)
[2019-11-19] MEDS: GABAPENTIN 300 MG CAP PO SCH ×3 (08:15→21:58)
[2019-11-19] MEDS: REMEDY PHYTOPLEX Z-GUARD PASTE 113GM TUBE (FROM STOREROOM PRODUCT) TOP SCH ×3 (08:16→22:00)
[2019-11-19] MEDS: lisinopriL 20 MG TAB PO SCH (08:22)
[2019-11-19] MEDS: hydroCHLOROthiazide 25 MG TAB PO SCH (08:22)
[2019-11-19] MEDS: METOPROLOL TART 50 MG TAB PO SCH (08:22)
[2019-11-19] MEDS: METOPROLOL SUCC *XL* 12.5MG PER 1/2 TAB (TopROL *XL*) PO SCH (09:00)
--- NOTE | 2019-11-19 11:42 | IPNPDOC ---
PM&R Progress Note DATE OF SERVICE: Nov 19, 2019 [employer] Progress Note Subjective: Patient states he is having trouble sleeping at night because the bed is very uncomfortable and that he usually sleeps in a recliner. REVIEW OF SYSTEMS: The following is a completed review of systems and has been reviewed. Review of systems otherwise unremarkable. PAIN: Patient self reports no pain EYES: decreased vision on the left EARS, NOSE, & THROAT: +dysphagia (improving) CARDIOVASCULAR: Denies chest pain or palpitations PULMONARY: Denies shortness of breath, +cough (improving) GASTROINTESTINAL: Denies constipation/diarrhea GENITOURINARY: urinary retention (chronic) MUSCULOSKELETAL: left sided weakness NEUROLOGICAL:left sided paresis HEMATOLOGICAL: denies easy bruising SKIN: left toe ulcer PSYCHIATRIC: Unremarkable All other review of systems found to be negative. PHYSICAL EXAMINATION: VITAL SIGNS: Please see below. GENERAL: Pleasant and cooperative. No acute distress. HEENT: PERRL. Extraocular movements grossly intact Clear conjunctiva CARDIOVASCULAR: Regular rate and rhythm. No murmurs, rubs, or gallops LUNGS: +scattered wheezes. No rhonchi ABDOMEN: Soft, nontender, nondistended. Positive bowel sounds. Normal active bowel sounds NEUROLOGICAL: Alert and oriented times three. Cranial nerves II through XII grossly intact. Sensation to light touch groslyinact in all4 extremities, + extinction to touch on the left (+)left eye-brow sparing left facial droop (improving) (-) Babinksi bilat 1/4+ tone left elbow extensors EXTREMITIES: 5\5 strength right upper extremities. Left UE 1/5 elbow flexors, 1/5 elbow extensors, 0/5 wrist extension, 0/5 investment professional 5/5 RLE, 3+/5 left hip flexion, knee extension, 4/5 ankle DF, EHL, and PF SKIN: left D1-D2 interdigit ulcer (dry) coccyx area erythematous, blanchable ASSESSMENT:63-year-old M with past medical history of HTN who presents status post stroke PLAN: 1.Rehab-PT advance gait training, trunk control, strengthen, stretch, maintain ROM bilat LE- e-stim prn OT- advance ADL management, strengthen, stretch, maintain ROM bilat UE, e-stim prn, left shoulder stabilization, consider taping, sling during ambulation for shoulder protectin 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 Neuro: s/p right MCA infarct s/p TPA and ICA/MCA thrombectomy with stenting with right basal ganglia and willmas radiata hemorrhagic conversion - patient with dysphagia and left sided paresis, -11-12-19 patient with new flaccid paresis of LUE and weaker LLE, concern for new infarct or hemorrhage- CTH and MRI negative for acute hemorrhage/conversion or new infarct, tapering decadron started to treat edema seen on MRI in the are of the old basal ganglia hemorrhagic infarct with hope of motor return on left side -c/u ASA, Brillinta, BP control, and statin for secondary stroke prevention -will need neurology referral -f/u Dr Molina neurosurgeon upon d/c 3. Cardiac: hx HTN, c/u metoprolol changed to succinate 12.5 daily for soft BPs, c/u lisinopril, HCTZ- medicine consulted to assist in management, recent ECHO at [facility] not suggestive of systolic/diastolic CHF -HLD- c/u statin 4. Resp: hx of smoking with cough, c/u Duonebs standing, patient wheezing one exam, monitor for infection, encourage incentive spirometry -nicotine patch decreased dosing -hx of YAN but did not finish getting fitted for CPAP mask, c/u nocturnal 02, will need referral to pulmonology 5. Vasc: recent acute occlusion left superficial femoral artery, patient asymptomatic, will consider inhouse vascular consult prn 6. : hx of prostate cancer s/p prostatotomy- patient self-caths about once a month at home, failed TOV- Ocrtes reinserted 11-16-19 -c/u FLomax 0.8 mg qhs 7. DVT ppx: Teds, Dopplers negative, avoiding chemoprophylaxis given recent hemorrhage 8. GI ppx: protonix 9. Psych: insomnia- c/u trazodone will increase to 50mg -c/u prozac 20mg qHS for motor recovery in stroke -hx of chronic ETOH use- c/u gabapentin 300 mg TID 10. Skin- c/u barrier cream to sacrum, optifoam ordered, and roho cushion for wheelchair usage to prevent skin breakdown 11. Pain: c/u tylenol 12. Disp: tbd Allergies Coded Allergies: No Known Allergies (Verified Allergy, Unknown, 11/06/19) Vital Signs Vital Signs Date Time Temp Pulse Resp B/P (MAP) Pulse Ox O2 Delivery O2 Flow Rate FiO2 11/19/19 08:22 102/68 11/19/19 06:00 96.9 63 19 94 Room Air Laboratory Data CBC/BMP Laboratory Tests 11/19/19 06:21 Labs 24H Laboratory Tests 2 11/19/19 06:21: Immature Granulocyte % (Auto) 0.5, Neutrophils (%) (Auto) 73.8H, Lymphocytes (%) (Auto) 17.3L, Monocytes (%) (Auto) 6.9H, Eosinophils (%) (Auto) 0.9, Basophils (%) (Auto) 0.6, Neutrophils # (Auto) 7.5, Lymphocytes # (Auto) 1.8, Monocytes # (Auto) 0.7, Eosinophils # (Auto) 0.1, Basophils # (Auto) 0.1, Nucleated Red Blood Cells % (auto) 0.0, Anion Gap 8, Glomerular Filtration Rate > 60.0, Calcium Level 9.1 Current Medications Current Medications Current Medications Medications (Trade) Dose Ordered Sig/Cj Route PRN Reason Start Time Stop Time Status Last Admin Dose Admin Acetaminophen (Tylenol Tab) 650 mg Q4HP PRN PO fever/MILD PAIN 11/06/19 16:15 11/09/19 14:23 DC 11/07/19 08:35 Acetaminophen (Tylenol Tab) 1,000 mg TID PO 11/09/19 16:00 11/09/19 15:15 DC Acetaminophen (Tylenol Tab) 1,000 mg TID PO 11/09/19 16:00 11/19/19 08:14 Acetaminophen (Tylenol Tab) 1,000 mg TIDP PRN PO PAIN 11/09/19 16:00 11/09/19 15:38 DC Albuterol/ Ipratropium (Duoneb (Ipr 0.5mg/Alb 2.5mg)) 3 ml RTID NEB 11/06/19 20:00 11/10/19 16:35 DC 11/10/19 07:52 Albuterol/ Ipratropium (Duoneb (Ipr 0.5mg/Alb 2.5mg)) 3 ml RTID NEB 11/13/19 14:00 11/19/19 07:37 Albuterol/ Ipratropium (Duoneb (Ipr 0.5mg/Alb 2.5mg)) 3 ml RTID PRN NEB SHORTNESS OF BREATH 11/10/19 16:45 11/13/19 12:47 DC Aspirin (Ecotrin) 81 mg DAILY PO 11/07/19 09:00 11/19/19 08:13 Atorvastatin Calcium (Lipitor) 40 mg QHS PO 11/06/19 21:00 Cancel Atorvastatin Calcium (Lipitor) 80 mg QHS PO 11/06/19 21:00 11/18/19 20:56 Dexamethasone (Decadron) 2 mg BID PO 11/16/19 21:00 11/20/19 12:00 11/19/19 08:13 Dexamethasone (Decadron) 2 mg DAILY PO 11/21/19 09:00 11/24/19 09:01 Dexamethasone (Decadron) 2 mg TID PO 11/12/19 21:00 11/12/19 18:21 DC Dexamethasone (Decadron) 2 mg TID PO 11/12/19 21:00 11/16/19 17:54 DC 11/16/19 16:21 Docusate Sodium (Colace) 100 mg BID PO 11/06/19 21:00 11/19/19 08:14 Escitalopram Oxalate (Lexapro) 20 mg QHS PO 11/09/19 21:00 11/12/19 14:03 DC 11/11/19 21:01 Fluoxetine HCl (PROzac) 20 mg QHS PO 11/12/19 21:00 11/18/19 20:55 Gabapentin (Neurontin) 300 mg TID PO 11/10/19 21:00 11/19/19 08:15 Home Med (Med Rec Complete!) ASDIRECTED XX 11/06/19 17:45 11/06/19 17:44 DC Hydrochlorothiazide (Hydrodiuril) 25 mg DAILY PO 11/07/19 09:00 11/18/19 09:10 Lidocaine HCl (Lidocaine 2% Urojet) APPLY TO CATHETER FOR P... ASDIRECTED PRN TOP FOR COMFORT 11/11/19 20:30 11/15/19 00:46 Lisinopril (Prinivil) 20 mg DAILY PO 11/16/19 09:00 11/18/19 09:09 Lisinopril (Prinivil) 40 mg DAILY PO 11/07/19 09:00 11/15/19 17:09 DC 11/15/19 09:22 Magnesium Hydroxide (Milk Of Magnesia) 30 ml DAILYPRN PRN PO CONSTIPATION 11/06/19 16:15 Metoprolol Succinate (TopROL XL) 12.5 mg DAILY PO 11/19/19 09:00 Metoprolol Tartrate (Lopressor) 50 mg BID PO 11/06/19 21:00 11/07/19 09:48 DC 11/07/19 08:31 Metoprolol Tartrate (Lopressor) 50 mg BID PO 11/15/19 21:00 11/19/19 10:01 DC 11/18/19 20:56 Metoprolol Tartrate (Lopressor) 75 mg BID PO 11/07/19 21:00 11/15/19 17:09 DC 11/15/19 09:24 Miscellaneous (Unresolved Clarification Entry) SEE LABEL COMMENTS DAILY XX 11/06/19 09:00 11/07/19 09:55 DC 11/06/19 18:17 Nicotine (Nicoderm Cq 14mg) 1 patch DAILY TD 11/13/19 14:00 11/19/19 08:13 Nicotine (Nicoderm Cq 21mg) 1 patch DAILY TD 11/06/19 09:00 11/13/19 12:47 DC 11/13/19 08:49 Pantoprazole Sodium (Protonix) 40 mg DAILY PO 11/06/19 09:00 11/19/19 08:15 Senna (Senokot) 1 tab QHS PO 11/06/19 21:00 11/18/19 20:55 Tamsulosin HCl (Flomax) 0.8 mg QHS PO 11/06/19 21:00 11/18/19 20:56 Ticagrelor (Brilinta) 90 mg BID PO 11/06/19 21:00 11/19/19 08:14 Trazodone HCl (Desyrel) 25 mg DAILY@0000 PO 11/09/19 00:00 11/12/19 17:57 DC 11/12/19 00:14 Trazodone HCl (Desyrel) 25 mg DAILY@2200 PO 11/12/19 22:00 11/19/19 11:39 DC 11/18/19 20:56 Trazodone HCl (Desyrel) 25 mg QHSP PRN PO INSOMNIA 11/06/19 16:15 11/08/19 11:19 DC Trazodone HCl (Desyrel) 50 mg DAILY@2200 PO 11/19/19 22:00 ANNE GOMEZ MD Nov 19, 2019 11:42
[2019-11-19 15:30] VITALS: BP 133/77
[2019-11-19 21:30] VITALS: BP 139/66
[2019-11-19] MEDS: FLUoxetine 20 MG CAP PO SCH (21:58)
[2019-11-19] MEDS: ATORVASTATIN 20 MG TAB PO SCH (21:58)
[2019-11-19] MEDS: traZODone 50 MG TAB PO SCH (21:58)
[2019-11-19] MEDS: TAMSULOSIN 0.4 MG CAP PO SCH (21:58)
[2019-11-19] MEDS: SENNA 8.6 MG TAB (SENOKOT) PO SCH (21:59)
[2019-11-20 06:00] VITALS: BP 123/74
[2019-11-20] MEDS: IPRATROPIUM 0.5MG/ALBUTEROL 2.5MG INH SOL UD 3ML (DUONEB)(J7620) NEB SCH ×3 (07:43→20:53)
[2019-11-20] MEDS: GABAPENTIN 300 MG CAP PO SCH ×3 (09:56→21:43)
[2019-11-20] MEDS: ASPIRIN 81 MG ENTERIC TAB PO SCH (09:56)
[2019-11-20] MEDS: TICAGRELOR 90 MG TABLET (BRILINTA) PO SCH ×2 (09:56→21:44)
[2019-11-20] MEDS: DOCUSATE SODIUM 100 MG CAP PO SCH ×2 (09:56→21:44)
[2019-11-20] MEDS: PANTOPRAZOLE 40MG TAB (PROTONIX) PO SCH (09:57)
[2019-11-20] MEDS: NICOTINE 14 MG/24 HR TRANSDERMAL TD SCH (09:57)
[2019-11-20] MEDS: ACETAMINOPHEN 500 MG TAB PO SCH ×3 (09:57→21:43)
[2019-11-20] MEDS: REMEDY PHYTOPLEX Z-GUARD PASTE 113GM TUBE (FROM STOREROOM PRODUCT) TOP SCH ×3 (09:58→21:44)
[2019-11-20] MEDS: hydroCHLOROthiazide 25 MG TAB PO SCH (10:00)
[2019-11-20] MEDS: lisinopriL 20 MG TAB PO SCH (10:00)
[2019-11-20] MEDS: METOPROLOL SUCC *XL* 12.5MG PER 1/2 TAB (TopROL *XL*) PO SCH (10:00)
[2019-11-20 14:00] VITALS: BP 120/71
--- NOTE | 2019-11-20 14:38 | IPNPDOC ---
PM&R Progress Note DATE OF SERVICE: Nov 20, 2019 [employer] Progress Note Subjective: Patient states he slept better last night and is pleased he was able to walk today in therapy. REVIEW OF SYSTEMS: The following is a completed review of systems and has been reviewed. Review of systems otherwise unremarkable. PAIN: Patient self reports no pain EYES: decreased vision on the left EARS, NOSE, & THROAT: +dysphagia (improving) CARDIOVASCULAR: Denies chest pain or palpitations PULMONARY: Denies shortness of breath, +cough (improving) GASTROINTESTINAL: Denies constipation/diarrhea GENITOURINARY: urinary retention (chronic) MUSCULOSKELETAL: left sided weakness NEUROLOGICAL:left sided paresis HEMATOLOGICAL: denies easy bruising SKIN: left toe ulcer PSYCHIATRIC: Unremarkable All other review of systems found to be negative. PHYSICAL EXAMINATION: VITAL SIGNS: Please see below. GENERAL: Pleasant and cooperative. No acute distress. HEENT: PERRL. Extraocular movements grossly intact Clear conjunctiva CARDIOVASCULAR: Regular rate and rhythm. No murmurs, rubs, or gallops LUNGS: CTA ABDOMEN: Soft, nontender, nondistended. Positive bowel sounds. Normal active bowel sounds NEUROLOGICAL: Alert and oriented times three. Cranial nerves II through XII grossly intact. Sensation to light touch groslyinact in all4 extremities, + extinction to touch on the left (+)left eye-brow sparing left facial droop (improving) (-) Babinksi bilat 1/4+ tone left elbow extensors EXTREMITIES: 5\5 strength right upper extremities. 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 5/5 RLE, 3+/5 left hip flexion, knee extension, 4/5 ankle DF, EHL, and PF SKIN: left D1-D2 interdigit ulcer (dry) coccyx area erythematous, blanchable ASSESSMENT:63-year-old M with past medical history of HTN who presents status post stroke PLAN: 1.Rehab-PT advance gait training, trunk control, strengthen, stretch, maintain ROM bilat LE- e-stim prn, ambulating with assistance short distances with [facility] OT- advance ADL management, strengthen, stretch, maintain ROM bilat UE, e-stim prn, left shoulder stabilization, consider taping, sling during ambulation for shoulder protectin 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 Neuro: s/p right MCA infarct s/p TPA and ICA/MCA thrombectomy with stenting with right basal ganglia and willams radiata hemorrhagic conversion - patient with dysphagia and left sided paresis, -11-12-19 patient with new flaccid paresis of LUE and weaker LLE, concern for new infarct or hemorrhage- CTH and MRI negative for acute hemorrhage/conversion or new infarct, tapering decadron started to treat edema seen on MRI in the are of the old basal ganglia hemorrhagic infarct with hope of motor return on left side -c/u ASA, Brillinta, BP control, and statin for secondary stroke prevention -will need neurology referral -f/u Dr Molina neurosurgeon upon d/c 3. Cardiac: hx HTN, c/u metoprolol changed to succinate 12.5 daily for soft BPs, c/u lisinopril, HCTZ- medicine consulted to assist in management, recent ECHO at [facility] not suggestive of systolic/diastolic CHF -HLD- c/u statin 4. Resp: hx of smoking with cough, c/u Duonebs standing, patient wheezing one exam, monitor for infection, encourage incentive spirometry -nicotine patch decreased dosing -hx of YAN but did not finish getting fitted for CPAP mask, c/u nocturnal 02, will need referral to pulmonology 5. Vasc: recent acute occlusion left superficial femoral artery, patient asymptomatic, will consider inhouse vascular consult prn 6. : hx of prostate cancer s/p prostatotomy- patient self-caths about once a month at home, failed TOV- Cortes reinserted 11-16-19 -c/u FLomax 0.8 mg qhs 7. DVT ppx: Teds, Dopplers negative, avoiding chemoprophylaxis given recent hemorrhage 8. GI ppx: protonix 9. Psych: insomnia- c/u trazodone 50mg -c/u prozac 20mg qHS for motor recovery in stroke -hx of chronic ETOH use- c/u gabapentin 300 mg TID 10. Skin- c/u barrier cream to sacrum, optifoam ordered, and roho cushion for wheelchair usage to prevent skin breakdown 11. Pain: c/u tylenol 12. Disp: 12-07-19 to home, progressing towards goals Allergies Coded Allergies: No Known Allergies (Verified Allergy, Unknown, 11/06/19) Vital Signs Vital Signs Date Time Temp Pulse Resp B/P (MAP) Pulse Ox O2 Delivery O2 Flow Rate FiO2 11/20/19 14:00 96.9 114 20 120/71 (87) 97 Room Air Current Medications Current Medications Current Medications Medications (Trade) Dose Ordered Sig/Cj Route PRN Reason Start Time Stop Time Status Last Admin Dose Admin Acetaminophen (Tylenol Tab) 650 mg Q4HP PRN PO fever/MILD PAIN 11/06/19 16:15 11/09/19 14:23 DC 11/07/19 08:35 Acetaminophen (Tylenol Tab) 1,000 mg TID PO 11/09/19 16:00 11/09/19 15:15 DC Acetaminophen (Tylenol Tab) 1,000 mg TID PO 11/09/19 16:00 11/20/19 09:57 Acetaminophen (Tylenol Tab) 1,000 mg TIDP PRN PO PAIN 11/09/19 16:00 11/09/19 15:38 DC Albuterol/ Ipratropium (Duoneb (Ipr 0.5mg/Alb 2.5mg)) 3 ml RTID NEB 11/06/19 20:00 11/10/19 16:35 DC 11/10/19 07:52 Albuterol/ Ipratropium (Duoneb (Ipr 0.5mg/Alb 2.5mg)) 3 ml RTID NEB 11/13/19 14:00 11/20/19 13:28 Albuterol/ Ipratropium (Duoneb (Ipr 0.5mg/Alb 2.5mg)) 3 ml RTID PRN NEB SHORTNESS OF BREATH 11/10/19 16:45 11/13/19 12:47 DC Aspirin (Ecotrin) 81 mg DAILY PO 11/07/19 09:00 11/20/19 09:56 Atorvastatin Calcium (Lipitor) 40 mg QHS PO 11/06/19 21:00 Cancel Atorvastatin Calcium (Lipitor) 80 mg QHS PO 11/06/19 21:00 11/19/19 21:58 Dexamethasone (Decadron) 2 mg BID PO 11/16/19 21:00 11/20/19 12:00 DC 11/20/19 09:57 Dexamethasone (Decadron) 2 mg DAILY PO 11/21/19 09:00 11/24/19 09:01 Dexamethasone (Decadron) 2 mg TID PO 11/12/19 21:00 11/12/19 18:21 DC Dexamethasone (Decadron) 2 mg TID PO 11/12/19 21:00 11/16/19 17:54 DC 11/16/19 16:21 Docusate Sodium (Colace) 100 mg BID PO 11/06/19 21:00 11/20/19 09:56 Escitalopram Oxalate (Lexapro) 20 mg QHS PO 11/09/19 21:00 11/12/19 14:03 DC 11/11/19 21:01 Fluoxetine HCl (PROzac) 20 mg QHS PO 11/12/19 21:00 11/19/19 21:58 Gabapentin (Neurontin) 300 mg TID PO 11/10/19 21:00 11/20/19 09:56 Home Med (Med Rec Complete!) ASDIRECTED XX 11/06/19 17:45 11/06/19 17:44 DC Hydrochlorothiazide (Hydrodiuril) 25 mg DAILY PO 11/07/19 09:00 11/18/19 09:10 Lidocaine HCl (Lidocaine 2% Urojet) APPLY TO CATHETER FOR P... ASDIRECTED PRN TOP FOR COMFORT 11/11/19 20:30 11/15/19 00:46 Lisinopril (Prinivil) 20 mg DAILY PO 11/16/19 09:00 11/18/19 09:09 Lisinopril (Prinivil) 40 mg DAILY PO 11/07/19 09:00 11/15/19 17:09 DC 11/15/19 09:22 Magnesium Hydroxide (Milk Of Magnesia) 30 ml DAILYPRN PRN PO CONSTIPATION 11/06/19 16:15 Metoprolol Succinate (TopROL XL) 12.5 mg DAILY PO 11/19/19 09:00 Metoprolol Tartrate (Lopressor) 50 mg BID PO 11/06/19 21:00 11/07/19 09:48 DC 11/07/19 08:31 Metoprolol Tartrate (Lopressor) 50 mg BID PO 11/15/19 21:00 11/19/19 10:01 DC 11/18/19 20:56 Metoprolol Tartrate (Lopressor) 75 mg BID PO 11/07/19 21:00 11/15/19 17:09 DC 11/15/19 09:24 Miscellaneous (Unresolved Clarification Entry) SEE LABEL COMMENTS DAILY XX 11/06/19 09:00 11/07/19 09:55 DC 11/06/19 18:17 Nicotine (Nicoderm Cq 14mg) 1 patch DAILY TD 11/13/19 14:00 11/20/19 09:57 Nicotine (Nicoderm Cq 21mg) 1 patch DAILY TD 11/06/19 09:00 11/13/19 12:47 DC 11/13/19 08:49 Pantoprazole Sodium (Protonix) 40 mg DAILY PO 11/06/19 09:00 11/20/19 09:57 Senna (Senokot) 1 tab QHS PO 11/06/19 21:00 11/19/19 21:59 Tamsulosin HCl (Flomax) 0.8 mg QHS PO 11/06/19 21:00 11/19/19 21:58 Ticagrelor (Brilinta) 90 mg BID PO 11/06/19 21:00 11/20/19 09:56 Trazodone HCl (Desyrel) 25 mg DAILY@0000 PO 11/09/19 00:00 11/12/19 17:57 DC 11/12/19 00:14 Trazodone HCl (Desyrel) 25 mg DAILY@2200 PO 11/12/19 22:00 11/19/19 11:39 DC 11/18/19 20:56 Trazodone HCl (Desyrel) 25 mg QHSP PRN PO INSOMNIA 11/06/19 16:15 11/08/19 11:19 DC Trazodone HCl (Desyrel) 50 mg DAILY@2200 PO 11/19/19 22:00 11/19/19 21:58 ANNE BENAVIDEZ MD Nov 20, 2019 14:38
[2019-11-20 20:00] VITALS: BP 133/73
[2019-11-20] MEDS: ATORVASTATIN 20 MG TAB PO SCH (21:43)
[2019-11-20] MEDS: TAMSULOSIN 0.4 MG CAP PO SCH (21:43)
[2019-11-20] MEDS: FLUoxetine 20 MG CAP PO SCH (21:43)
[2019-11-20] MEDS: SENNA 8.6 MG TAB (SENOKOT) PO SCH (21:44)
[2019-11-20] MEDS: traZODone 50 MG TAB PO SCH (21:44)
[2019-11-21 05:59] VITALS: BP 138/90
[2019-11-21 07:02] LABS: BASO # 0.1 10^3/uL (0.0-0.2); BASO % 0.6 % (0.0-1.0); EOS # 0.3 10^3/uL (0.0-0.5); EOS % 3.5 % (0.0-3.0); HEMATOCRIT 48.1 % (42.0-52.0); HEMOGLOBIN 16.4 g/dl (13.5-17.5); LYMPH # 2.3 10^3/uL (1.5-5.0); LYMPH % 25.5 % (24.0-44.0); MEAN CORPUSCULAR HGB CONC 34.1 g/dl (32.0-36.5); MEAN CORPUSCULAR VOLUME 99.6 fl (80.0-96.0); MONO # 0.7 10^3/uL (0.0-0.8); MONO % 7.4 % (0.0-5.0); NEUTROPHILS # 5.6 10^3/uL (1.5-8.5); NEUTROPHILS % 62.4 % (36.0-66.0); PLATELET COUNT, AUTOMATED 241 10^3/uL (150-450); RED BLOOD COUNT 4.83 10^6/uL (4.30-6.10)
[2019-11-21 07:24] LABS: BLOOD UREA NITROGEN 16 MG/DL (7-18); CALCIUM LEVEL 8.4 MG/DL (8.8-10.2); CARBON DIOXIDE LEVEL 27 MEQ/L (21-32); CHLORIDE LEVEL 106 MEQ/L (98-107); CREATININE FOR GFR 0.68 MG/DL (0.70-1.30); GLOMERULAR FILTRATION RATE > 60.0 (>49); GLUCOSE, FASTING 88 MG/DL (70-100); POTASSIUM SERUM 3.7 MEQ/L (3.5-5.1); SODIUM LEVEL 139 MEQ/L (136-145)
[2019-11-21] MEDS: IPRATROPIUM 0.5MG/ALBUTEROL 2.5MG INH SOL UD 3ML (DUONEB)(J7620) NEB SCH ×2 (07:36→19:49)
--- NOTE | 2019-11-21 08:57 | IPNPDOC ---
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 REVIEW OF SYSTEMS: The following is a completed review of systems and has been reviewed. Review of systems otherwise unremarkable. PAIN: Patient self reports no pain EYES: decreased vision on the left EARS, NOSE, & THROAT: +dysphagia (improving) CARDIOVASCULAR: Denies chest pain or palpitations PULMONARY: Denies shortness of breath, +cough (improving) GASTROINTESTINAL: Denies constipation/diarrhea GENITOURINARY: urinary retention (chronic) MUSCULOSKELETAL: left sided weakness NEUROLOGICAL:left sided paresis HEMATOLOGICAL: denies easy bruising SKIN: left toe ulcer PSYCHIATRIC: Unremarkable All other review of systems found to be negative. PHYSICAL EXAMINATION: VITAL SIGNS: Please see below. GENERAL: Pleasant and cooperative. No acute distress. HEENT: PERRL. Extraocular movements grossly intact Clear conjunctiva CARDIOVASCULAR: Regular rate and rhythm. No murmurs, rubs, or gallops LUNGS: CTA ABDOMEN: Soft, nontender, nondistended. Positive bowel sounds. Normal active bowel sounds NEUROLOGICAL: Alert and oriented times three. Cranial nerves II through XII grossly intact. Sensation to light touch groslyinact in all4 extremities, + extinction to touch on the left (+)left eye-brow sparing left facial droop (improving) (-) Babinksi bilat 1/4+ tone left elbow extensors EXTREMITIES: 5\5 strength right upper extremities. 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 5/5 RLE, 3+/5 left hip flexion, knee extension, 4/5 ankle DF, EHL, and PF SKIN: left D1-D2 interdigit ulcer (dry) coccyx area erythematous, blanchable ASSESSMENT:63-year-old M with past medical history of HTN who presents status post stroke PLAN: 1.Rehab-PT advance gait training, trunk control, strengthen, stretch, maintain ROM bilat LE- e-stim prn, ambulating with assistance short distances with [facility] OT- advance ADL management, strengthen, stretch, maintain ROM bilat UE, e-stim prn, left shoulder stabilization, consider taping, sling during ambulation for shoulder protectin TIPPLE BOSS: dysphagia and cog- upgraded to level 4 thins 2. Neuro: s/p right MCA infarct s/p TPA and ICA/MCA thrombectomy with stenting with right basal ganglia and willams radiata hemorrhagic conversion - patient with dysphagia and left sided paresis, -11-12-19 patient with new flaccid paresis of LUE and weaker LLE, concern for new infarct or hemorrhage- CTH and MRI negative for acute hemorrhage/conversion or new infarct, tapering decadron started to treat edema seen on MRI in the are of the old basal ganglia hemorrhagic infarct with hope of motor return on left side -c/u ASA, Brillinta, BP control, and statin for secondary stroke prevention -will need neurology referral -f/u Dr Molina neurosurgeon upon d/c 3. Cardiac: hx HTN, c/u metoprolol changed to succinate 12.5 daily for soft BPs, c/u lisinopril, HCTZ- medicine consulted to assist in management, recent ECHO at [facility] not suggestive of systolic/diastolic CHF -HLD- c/u statin 4. Resp: hx of smoking with cough, c/u Duonebs standing, patient wheezing one exam, monitor for infection, encourage incentive spirometry -nicotine patch decreased dosing -hx of YAN but did not finish getting fitted for CPAP mask, c/u nocturnal 02, will need referral to pulmonology 5. Vasc: recent acute occlusion left superficial femoral artery, patient asymptomatic, will consider inhouse vascular consult prn 6. : hx of prostate cancer s/p prostatotomy- patient self-caths about once a month at home, failed TOV- Cortes reinserted 11-16-19 -c/u FLomax 0.8 mg qhs 7. DVT ppx: Teds, Dopplers negative, avoiding chemoprophylaxis given recent hemorrhage 8. GI ppx: protonix 9. Psych: insomnia- c/u trazodone 50mg -c/u prozac 20mg qHS for motor recovery in stroke -hx of chronic ETOH use- c/u gabapentin 300 mg TID 10. Skin- c/u barrier cream to sacrum, optifoam ordered, and roho cushion for wheelchair usage to prevent skin breakdown 11. Pain: c/u tylenol 12. Disp: 12-07-19 to home, progressing towards goals Allergies Coded Allergies: No Known Allergies (Verified Allergy, Unknown, 11/06/19) Vital Signs Vital Signs Date Time Temp Pulse Resp B/P (MAP) Pulse Ox O2 Delivery O2 Flow Rate FiO2 11/21/19 05:59 98.1 72 18 138/90 (106) 95 Room Air Laboratory Data CBC/BMP Laboratory Tests 11/21/19 06:20 Labs 24H Laboratory Tests 2 11/21/19 06:20: Immature Granulocyte % (Auto) 0.6, Neutrophils (%) (Auto) 62.4, Lymphocytes (%) (Auto) 25.5, Monocytes (%) (Auto) 7.4H, Eosinophils (%) (Auto) 3.5H, Basophils (%) (Auto) 0.6, Neutrophils # (Auto) 5.6, Lymphocytes # (Auto) 2.3, Monocytes # (Auto) 0.7, Eosinophils # (Auto) 0.3, Basophils # (Auto) 0.1, Nucleated Red Blood Cells % (auto) 0.0, Anion Gap 6L, Glomerular Filtration Rate > 60.0, Calcium Level 8.4L Current Medications Current Medications Current Medications Medications (Trade) Dose Ordered Sig/Cj Route PRN Reason Start Time Stop Time Status Last Admin Dose Admin Acetaminophen (Tylenol Tab) 650 mg Q4HP PRN PO fever/MILD PAIN 11/06/19 16:15 11/09/19 14:23 DC 11/07/19 08:35 Acetaminophen (Tylenol Tab) 1,000 mg TID PO 11/09/19 16:00 11/09/19 15:15 DC Acetaminophen (Tylenol Tab) 1,000 mg TID PO 11/09/19 16:00 11/20/19 21:43 Acetaminophen (Tylenol Tab) 1,000 mg TIDP PRN PO PAIN 11/09/19 16:00 11/09/19 15:38 DC Albuterol/ Ipratropium (Duoneb (Ipr 0.5mg/Alb 2.5mg)) 3 ml RTID NEB 11/06/19 20:00 11/10/19 16:35 DC 11/10/19 07:52 Albuterol/ Ipratropium (Duoneb (Ipr 0.5mg/Alb 2.5mg)) 3 ml RTID NEB 11/13/19 14:00 11/20/19 20:53 Albuterol/ Ipratropium (Duoneb (Ipr 0.5mg/Alb 2.5mg)) 3 ml RTID PRN NEB SHORTNESS OF BREATH 11/10/19 16:45 11/13/19 12:47 DC Aspirin (Ecotrin) 81 mg DAILY PO 11/07/19 09:00 11/20/19 09:56 Atorvastatin Calcium (Lipitor) 40 mg QHS PO 11/06/19 21:00 Cancel Atorvastatin Calcium (Lipitor) 80 mg QHS PO 11/06/19 21:00 11/20/19 21:43 Dexamethasone (Decadron) 2 mg BID PO 11/16/19 21:00 11/20/19 12:00 DC 11/20/19 09:57 Dexamethasone (Decadron) 2 mg DAILY PO 11/21/19 09:00 11/24/19 09:01 Dexamethasone (Decadron) 2 mg TID PO 11/12/19 21:00 11/12/19 18:21 DC Dexamethasone (Decadron) 2 mg TID PO 11/12/19 21:00 11/16/19 17:54 DC 11/16/19 16:21 Docusate Sodium (Colace) 100 mg BID PO 11/06/19 21:00 11/20/19 21:44 Escitalopram Oxalate (Lexapro) 20 mg QHS PO 11/09/19 21:00 11/12/19 14:03 DC 11/11/19 21:01 Fluoxetine HCl (PROzac) 20 mg QHS PO 11/12/19 21:00 11/20/19 21:43 Gabapentin (Neurontin) 300 mg TID PO 11/10/19 21:00 11/20/19 21:43 Home Med (Med Rec Complete!) ASDIRECTED XX 11/06/19 17:45 11/06/19 17:44 DC Hydrochlorothiazide (Hydrodiuril) 25 mg DAILY PO 11/07/19 09:00 11/18/19 09:10 Lidocaine HCl (Lidocaine 2% Urojet) APPLY TO CATHETER FOR P... ASDIRECTED PRN TOP FOR COMFORT 11/11/19 20:30 11/15/19 00:46 Lisinopril (Prinivil) 20 mg DAILY PO 11/16/19 09:00 11/18/19 09:09 Lisinopril (Prinivil) 40 mg DAILY PO 11/07/19 09:00 11/15/19 17:09 DC 11/15/19 09:22 Magnesium Hydroxide (Milk Of Magnesia) 30 ml DAILYPRN PRN PO CONSTIPATION 11/06/19 16:15 Metoprolol Succinate (TopROL XL) 12.5 mg DAILY PO 11/19/19 09:00 Metoprolol Tartrate (Lopressor) 50 mg BID PO 11/06/19 21:00 11/07/19 09:48 DC 11/07/19 08:31 Metoprolol Tartrate (Lopressor) 50 mg BID PO 11/15/19 21:00 11/19/19 10:01 DC 11/18/19 20:56 Metoprolol Tartrate (Lopressor) 75 mg BID PO 11/07/19 21:00 11/15/19 17:09 DC 11/15/19 09:24 Miscellaneous (Unresolved Clarification Entry) SEE LABEL COMMENTS DAILY XX 11/06/19 09:00 11/07/19 09:55 DC 11/06/19 18:17 Nicotine (Nicoderm Cq 14mg) 1 patch DAILY TD 11/13/19 14:00 11/20/19 09:57 Nicotine (Nicoderm Cq 21mg) 1 patch DAILY TD 11/06/19 09:00 11/13/19 12:47 DC 11/13/19 08:49 Pantoprazole Sodium (Protonix) 40 mg DAILY PO 11/06/19 09:00 11/20/19 09:57 Senna (Senokot) 1 tab QHS PO 11/06/19 21:00 11/20/19 21:44 Tamsulosin HCl (Flomax) 0.8 mg QHS PO 11/06/19 21:00 11/20/19 21:43 Ticagrelor (Brilinta) 90 mg BID PO 11/06/19 21:00 11/20/19 21:44 Trazodone HCl (Desyrel) 25 mg DAILY@0000 PO 11/09/19 00:00 11/12/19 17:57 DC 11/12/19 00:14 Trazodone HCl (Desyrel) 25 mg DAILY@2200 PO 11/12/19 22:00 11/19/19 11:39 DC 11/18/19 20:56 Trazodone HCl (Desyrel) 25 mg QHSP PRN PO INSOMNIA 11/06/19 16:15 11/08/19 11:19 DC Trazodone HCl (Desyrel) 50 mg DAILY@2200 PO 11/19/19 22:00 11/20/19 21:44 ANNE BENAVIDEZ MD Nov 21, 2019 08:57
[2019-11-21] MEDS: DOCUSATE SODIUM 100 MG CAP PO SCH ×2 (10:07→21:18)
[2019-11-21] MEDS: PANTOPRAZOLE 40MG TAB (PROTONIX) PO SCH (10:07)
[2019-11-21] MEDS: TICAGRELOR 90 MG TABLET (BRILINTA) PO SCH ×2 (10:07→21:18)
[2019-11-21] MEDS: NICOTINE 14 MG/24 HR TRANSDERMAL TD SCH (10:07)
[2019-11-21] MEDS: ASPIRIN 81 MG ENTERIC TAB PO SCH (10:07)
[2019-11-21] MEDS: METOPROLOL SUCC *XL* 12.5MG PER 1/2 TAB (TopROL *XL*) PO SCH (10:08)
[2019-11-21] MEDS: lisinopriL 20 MG TAB PO SCH (10:08)
[2019-11-21] MEDS: hydroCHLOROthiazide 25 MG TAB PO SCH (10:08)
[2019-11-21] MEDS: ACETAMINOPHEN 500 MG TAB PO SCH ×3 (10:08→21:19)
[2019-11-21] MEDS: GABAPENTIN 300 MG CAP PO SCH ×3 (10:08→21:18)
[2019-11-21] MEDS: REMEDY PHYTOPLEX Z-GUARD PASTE 113GM TUBE (FROM STOREROOM PRODUCT) TOP SCH ×3 (10:09→21:20)
[2019-11-21 14:00] VITALS: BP 123/78
[2019-11-21] MEDS: BACITRACIN OINT 30GM TOP SCH ×2 (17:58→21:22)
[2019-11-21] MEDS: SENNA 8.6 MG TAB (SENOKOT) PO SCH (21:18)
[2019-11-21] MEDS: TAMSULOSIN 0.4 MG CAP PO SCH (21:18)
[2019-11-21] MEDS: FLUoxetine 20 MG CAP PO SCH (21:18)
[2019-11-21] MEDS: traZODone 50 MG TAB PO SCH (21:19)
[2019-11-21] MEDS: ATORVASTATIN 20 MG TAB PO SCH (21:20)
[2019-11-21 22:15] VITALS: BP 101/62
[2019-11-22 06:00] VITALS: BP 118/69
[2019-11-22] MEDS: IPRATROPIUM 0.5MG/ALBUTEROL 2.5MG INH SOL UD 3ML (DUONEB)(J7620) NEB SCH ×3 (08:00→19:32)
[2019-11-22] MEDS: PANTOPRAZOLE 40MG TAB (PROTONIX) PO SCH (09:02)
[2019-11-22] MEDS: DOCUSATE SODIUM 100 MG CAP PO SCH ×2 (09:02→21:38)
[2019-11-22] MEDS: lisinopriL 20 MG TAB PO SCH (09:03)
[2019-11-22] MEDS: ACETAMINOPHEN 500 MG TAB PO SCH ×3 (09:03→21:39)
[2019-11-22] MEDS: hydroCHLOROthiazide 25 MG TAB PO SCH (09:03)
[2019-11-22] MEDS: ASPIRIN 81 MG ENTERIC TAB PO SCH (09:03)
[2019-11-22] MEDS: GABAPENTIN 300 MG CAP PO SCH ×3 (09:03→21:38)
[2019-11-22] MEDS: TICAGRELOR 90 MG TABLET (BRILINTA) PO SCH ×2 (09:03→21:37)
[2019-11-22] MEDS: NICOTINE 14 MG/24 HR TRANSDERMAL TD SCH (09:04)
[2019-11-22] MEDS: BACITRACIN OINT 30GM TOP SCH ×2 (09:04→21:40)
[2019-11-22] MEDS: METOPROLOL SUCC *XL* 12.5MG PER 1/2 TAB (TopROL *XL*) PO SCH (09:04)
[2019-11-22] MEDS: REMEDY PHYTOPLEX Z-GUARD PASTE 113GM TUBE (FROM STOREROOM PRODUCT) TOP SCH ×3 (09:05→21:41)
[2019-11-22 14:00] VITALS: BP 103/62
--- NOTE | 2019-11-22 14:15 | IPNPDOC ---
Subjective Date Seen The patient was seen on 11/22/19. Subjective Chief Complaint/HPI Mr. Fair is a 63 year old male, now on the ARU s/p right MCA and ICA infarct with tPA and stent to the right ICA. Pt is seen sitting up in a recliner today. He is getting ready to work with OT; feels stronger everyday. He is looking forward to being d/c on the . Pt denied any acute issues at this time. Objective Physical Examination General Exam: Positive: Alert, Cooperative, No Acute Distress Eye Exam: Positive: PERRLA, Conjunctiva & lids normal; Negative: Sclera icteric ENT Exam: Positive: Atraumatic, Mucous membr. moist/pink, Pharynx Normal Neck Exam: Positive: Supple; Negative: JVD, thyromegaly Chest Exam: Positive: Normal air movement, Wheezing Heart Exam: Positive: Rate Normal, Regular Rhythm, Normal S1, Normal S2; Negative: Murmurs, Rubs Telemetry: Positive: No significant arrhythmia Abdomen Exam: Positive: Normal bowel sounds, Soft; Negative: Tenderness Extremity Exam: Negative: Clubbing, Cyanosis, Edema, Swelling Skin Exam: Positive: Nl turgor and temperature Neuro Exam: Positive: Normal Speech (sl persistent dysphagia ), Other (Chronic left hemiparesis) Psych Exam: Positive: Mood NL Assessment /Plan Assessment Mr. Fair is a 63 year old male, now on the ARU s/p right MCA and ICA infarct with tPA, thrombolysis and stent to the right ICA. Pt subsequently developed a post-procedure hemorrhage in the right basal ganglia, and the willams radiata which eventually resolved. Further, he was later found to have decreased pulses in LLE 2/2 50-75% stenosis of the common femoral artery and acute occlusion of the superficial femoral artery possibly d/t mechanical thrombectomy. Right MCA and ICA infarct with subsequent left-sided hemiparesis and dysphagia - s/p neuro intervention as above - on ASA and Brilinta - continued management and dispo per ARU - neuro follow-up with Dr. Molina on d/c Hypertension - BP well controlled on current regimen - continue BB, ACEI, HCTZ Hyperlipidemia - continue statin Chronic urinary retention 2/2 BPH - previously straight cathed - now with Cortes as pt wasn't drinking fluids to avoid having to self- catheterize - continue Flomax - BUN WNL History of tobacco abuse - continue nicotine patches prn - Wheezing - encouraged to use incentive spirometry hourly - has nebs prn Plan/VTE VTE Prophylaxis Ordered?: No VTE Exclusion Mechanical Proph: N/A:VTE Prophy Ordered VTE Exclusion Pharmacological: Bleeding Risk VS, I&O, 24H, Fishbone Vital Signs/I&O Vital Signs Date Time Temp Pulse Resp B/P (MAP) Pulse Ox O2 Delivery O2 Flow Rate FiO2 11/22/19 09:03 118/69 11/22/19 06:00 96.9 61 18 93 Room Air I&O- Last 24 Hours up to 6 AM 11/22/19 06:00 Intake Total 1350 ml Output Total 900 ml Balance 450 ml Attending Note Attending Note I have reviewed the documentation. I have made necessary revisions as needed. I agree with the findings, assessment and plan stated above. DARIUSZ JOSHUA PA-C Nov 22, 2019 14:15 BERRY MURRAY MD Nov 23, 2019 13:10
[2019-11-22] MEDS: SENNA 8.6 MG TAB (SENOKOT) PO SCH (21:37)
[2019-11-22] MEDS: FLUoxetine 20 MG CAP PO SCH (21:38)
[2019-11-22] MEDS: traZODone 50 MG TAB PO SCH (21:38)
[2019-11-22] MEDS: TAMSULOSIN 0.4 MG CAP PO SCH (21:39)
[2019-11-22] MEDS: ATORVASTATIN 20 MG TAB PO SCH (21:39)
[2019-11-22 21:54] VITALS: BP 121/74
[2019-11-23 06:00] VITALS: BP 132/67
[2019-11-23] MEDS: IPRATROPIUM 0.5MG/ALBUTEROL 2.5MG INH SOL UD 3ML (DUONEB)(J7620) NEB SCH ×3 (07:24→19:49)
[2019-11-23] MEDS: hydroCHLOROthiazide 25 MG TAB PO SCH (09:00)
[2019-11-23] MEDS: METOPROLOL SUCC *XL* 12.5MG PER 1/2 TAB (TopROL *XL*) PO SCH (09:00)
[2019-11-23] MEDS: REMEDY PHYTOPLEX Z-GUARD PASTE 113GM TUBE (FROM STOREROOM PRODUCT) TOP SCH ×3 (09:00→20:23)
[2019-11-23] MEDS: lisinopriL 20 MG TAB PO SCH (09:00)
[2019-11-23] MEDS: NICOTINE 14 MG/24 HR TRANSDERMAL TD SCH (10:16)
[2019-11-23] MEDS: PANTOPRAZOLE 40MG TAB (PROTONIX) PO SCH (10:17)
[2019-11-23] MEDS: ASPIRIN 81 MG ENTERIC TAB PO SCH (10:17)
[2019-11-23] MEDS: GABAPENTIN 300 MG CAP PO SCH ×3 (10:17→20:21)
[2019-11-23] MEDS: DOCUSATE SODIUM 100 MG CAP PO SCH ×2 (10:17→20:21)
[2019-11-23] MEDS: TICAGRELOR 90 MG TABLET (BRILINTA) PO SCH ×2 (10:18→20:21)
[2019-11-23] MEDS: ACETAMINOPHEN 500 MG TAB PO SCH ×3 (10:19→20:22)
[2019-11-23] MEDS: BACITRACIN OINT 30GM TOP SCH ×2 (10:20→20:22)
[2019-11-23 16:00] VITALS: BP 140/74
[2019-11-23 20:00] VITALS: BP 114/70
[2019-11-23] MEDS: traZODone 50 MG TAB PO SCH (20:20)
[2019-11-23] MEDS: SENNA 8.6 MG TAB (SENOKOT) PO SCH (20:21)
[2019-11-23] MEDS: ATORVASTATIN 20 MG TAB PO SCH (20:21)
[2019-11-23] MEDS: FLUoxetine 20 MG CAP PO SCH (20:21)
[2019-11-23] MEDS: TAMSULOSIN 0.4 MG CAP PO SCH (20:21)
[2019-11-24 06:34] VITALS: BP 128/82
[2019-11-24] MEDS: IPRATROPIUM 0.5MG/ALBUTEROL 2.5MG INH SOL UD 3ML (DUONEB)(J7620) NEB SCH ×3 (07:16→18:19)
[2019-11-24] MEDS: DOCUSATE SODIUM 100 MG CAP PO SCH ×2 (08:50→21:14)
[2019-11-24] MEDS: ASPIRIN 81 MG ENTERIC TAB PO SCH (08:50)
[2019-11-24] MEDS: METOPROLOL SUCC *XL* 12.5MG PER 1/2 TAB (TopROL *XL*) PO SCH (08:50)
[2019-11-24] MEDS: TICAGRELOR 90 MG TABLET (BRILINTA) PO SCH ×2 (08:51→21:15)
[2019-11-24] MEDS: ACETAMINOPHEN 500 MG TAB PO SCH ×3 (08:51→21:15)
[2019-11-24] MEDS: PANTOPRAZOLE 40MG TAB (PROTONIX) PO SCH (08:51)
[2019-11-24] MEDS: hydroCHLOROthiazide 25 MG TAB PO SCH (08:51)
[2019-11-24] MEDS: GABAPENTIN 300 MG CAP PO SCH ×4 (08:51→21:15)
[2019-11-24] MEDS: lisinopriL 20 MG TAB PO SCH (08:52)
[2019-11-24] MEDS: BACITRACIN OINT 30GM TOP SCH ×2 (08:53→21:15)
[2019-11-24] MEDS: NICOTINE 14 MG/24 HR TRANSDERMAL TD SCH (08:53)
[2019-11-24] MEDS: REMEDY PHYTOPLEX Z-GUARD PASTE 113GM TUBE (FROM STOREROOM PRODUCT) TOP SCH ×3 (08:54→21:16)
[2019-11-24 14:00] VITALS: BP 116/70
[2019-11-24 19:44] VITALS: BP 131/85
[2019-11-24] MEDS: traZODone 50 MG TAB PO SCH (21:14)
[2019-11-24] MEDS: TAMSULOSIN 0.4 MG CAP PO SCH (21:14)
[2019-11-24] MEDS: ATORVASTATIN 20 MG TAB PO SCH (21:14)
[2019-11-24] MEDS: SENNA 8.6 MG TAB (SENOKOT) PO SCH (21:15)
[2019-11-24] MEDS: FLUoxetine 20 MG CAP PO SCH (21:15)
[2019-11-25 06:43] VITALS: BP 115/69
[2019-11-25] MEDS: IPRATROPIUM 0.5MG/ALBUTEROL 2.5MG INH SOL UD 3ML (DUONEB)(J7620) NEB SCH ×3 (08:32→19:56)
[2019-11-25] MEDS: GABAPENTIN 300 MG CAP PO SCH ×3 (09:00→20:58)
[2019-11-25] MEDS: TICAGRELOR 90 MG TABLET (BRILINTA) PO SCH ×2 (09:00→20:58)
[2019-11-25] MEDS: ASPIRIN 81 MG ENTERIC TAB PO SCH (09:00)
[2019-11-25] MEDS: PANTOPRAZOLE 40MG TAB (PROTONIX) PO SCH (09:00)
[2019-11-25] MEDS: ACETAMINOPHEN 500 MG TAB PO SCH ×3 (09:00→20:58)
[2019-11-25] MEDS: METOPROLOL SUCC *XL* 12.5MG PER 1/2 TAB (TopROL *XL*) PO SCH (09:00)
[2019-11-25] MEDS: REMEDY PHYTOPLEX Z-GUARD PASTE 113GM TUBE (FROM STOREROOM PRODUCT) TOP SCH ×3 (09:00→20:59)
[2019-11-25] MEDS: lisinopriL 20 MG TAB PO SCH (09:00)
[2019-11-25] MEDS: DOCUSATE SODIUM 100 MG CAP PO SCH ×2 (09:00→20:58)
[2019-11-25] MEDS: NICOTINE 14 MG/24 HR TRANSDERMAL TD SCH (09:01)
[2019-11-25] MEDS: hydroCHLOROthiazide 25 MG TAB PO SCH (09:01)
[2019-11-25] MEDS: BACITRACIN OINT 30GM TOP SCH ×2 (09:02→20:58)
[2019-11-25 14:00] VITALS: BP 129/71
[2019-11-25 19:46] VITALS: BP 100/59
[2019-11-25] MEDS: TAMSULOSIN 0.4 MG CAP PO SCH (20:57)
[2019-11-25] MEDS: ATORVASTATIN 20 MG TAB PO SCH (20:57)
[2019-11-25] MEDS: traZODone 50 MG TAB PO SCH (20:58)
[2019-11-25] MEDS: SENNA 8.6 MG TAB (SENOKOT) PO SCH (20:58)
[2019-11-25] MEDS: FLUoxetine 20 MG CAP PO SCH (20:58)
[2019-11-26 05:48] VITALS: BP 116/71
[2019-11-26 07:03] LABS: BASO # 0.1 10^3/uL (0.0-0.2); BASO % 0.9 % (0.0-1.0); EOS # 0.4 10^3/uL (0.0-0.5); EOS % 4.3 % (0.0-3.0); HEMATOCRIT 49.3 % (42.0-52.0); HEMOGLOBIN 16.6 g/dl (13.5-17.5); LYMPH # 2.1 10^3/uL (1.5-5.0); MEAN CORPUSCULAR HEMOGLOBIN 33.8 pg (27.0-33.0); MEAN CORPUSCULAR HGB CONC 33.7 g/dl (32.0-36.5); MEAN CORPUSCULAR VOLUME 100.4 fl (80.0-96.0); MONO # 0.8 10^3/uL (0.0-0.8); MONO % 8.2 % (0.0-5.0); NEUTROPHILS # 6.1 10^3/uL (1.5-8.5); NEUTROPHILS % 64.3 % (36.0-66.0); PLATELET COUNT, AUTOMATED 208 10^3/uL (150-450); RED BLOOD COUNT 4.91 10^6/uL (4.30-6.10); WHITE BLOOD COUNT 9.4 10^3/uL (4.0-10.0)
[2019-11-26 07:21] LABS: BLOOD UREA NITROGEN 17 MG/DL (7-18); CALCIUM LEVEL 8.5 MG/DL (8.8-10.2); CARBON DIOXIDE LEVEL 26 MEQ/L (21-32); CHLORIDE LEVEL 105 MEQ/L (98-107); CREATININE FOR GFR 0.71 MG/DL (0.70-1.30); GLOMERULAR FILTRATION RATE > 60.0 (>49); GLUCOSE, FASTING 80 MG/DL (70-100); POTASSIUM SERUM 4.3 MEQ/L (3.5-5.1); SODIUM LEVEL 140 MEQ/L (136-145)
[2019-11-26] MEDS: IPRATROPIUM 0.5MG/ALBUTEROL 2.5MG INH SOL UD 3ML (DUONEB)(J7620) NEB SCH ×3 (07:51→21:24)
[2019-11-26] MEDS: TICAGRELOR 90 MG TABLET (BRILINTA) PO SCH ×2 (08:49→21:39)
[2019-11-26] MEDS: NICOTINE 14 MG/24 HR TRANSDERMAL TD SCH (08:49)
[2019-11-26] MEDS: ACETAMINOPHEN 500 MG TAB PO SCH ×3 (08:49→21:39)
[2019-11-26] MEDS: ASPIRIN 81 MG ENTERIC TAB PO SCH (08:49)
[2019-11-26] MEDS: PANTOPRAZOLE 40MG TAB (PROTONIX) PO SCH (08:49)
[2019-11-26] MEDS: DOCUSATE SODIUM 100 MG CAP PO SCH ×2 (08:49→21:39)
[2019-11-26] MEDS: hydroCHLOROthiazide 25 MG TAB PO SCH (08:49)
[2019-11-26] MEDS: GABAPENTIN 300 MG CAP PO SCH ×3 (08:49→21:38)
[2019-11-26] MEDS: METOPROLOL SUCC *XL* 12.5MG PER 1/2 TAB (TopROL *XL*) PO SCH (08:50)
[2019-11-26] MEDS: lisinopriL 20 MG TAB PO SCH (08:50)
[2019-11-26] MEDS: REMEDY PHYTOPLEX Z-GUARD PASTE 113GM TUBE (FROM STOREROOM PRODUCT) TOP SCH ×3 (08:51→21:40)
[2019-11-26] MEDS: BACITRACIN OINT 30GM TOP SCH ×2 (08:51→21:40)
--- NOTE | 2019-11-26 12:40 | IPNPDOC ---
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 REVIEW OF SYSTEMS: The following is a completed review of systems and has been reviewed. Review of systems otherwise unremarkable. PAIN: Patient self reports no pain EYES: decreased vision on the left EARS, NOSE, & THROAT: +dysphagia (improving) CARDIOVASCULAR: Denies chest pain or palpitations PULMONARY: Denies shortness of breath, +cough (improving) GASTROINTESTINAL: Denies constipation/diarrhea GENITOURINARY: urinary retention (chronic) MUSCULOSKELETAL: left sided weakness NEUROLOGICAL:left sided paresis HEMATOLOGICAL: denies easy bruising SKIN: left toe ulcer PSYCHIATRIC: Unremarkable All other review of systems found to be negative. PHYSICAL EXAMINATION: VITAL SIGNS: Please see below. GENERAL: Pleasant and cooperative. No acute distress. HEENT: PERRL. Extraocular movements grossly intact Clear conjunctiva CARDIOVASCULAR: Regular rate and rhythm. No murmurs, rubs, or gallops LUNGS: CTA ABDOMEN: Soft, nontender, nondistended. Positive bowel sounds. Normal active bowel sounds NEUROLOGICAL: Alert and oriented times three. Cranial nerves II through XII grossly intact. Sensation to light touch groslyinact in all4 extremities, + extinction to touch on the left (+)left eye-brow sparing left facial droop (improving) (-) Babinksi bilat 1/4+ tone left elbow extensors EXTREMITIES: 5\5 strength right upper extremities. Left UE 1/5 elbow flexors, 1/5 elbow extensors, 0/5 wrist extension, 0/5 technical sales advisor 5/5 RLE, 3+/5 left hip flexion, knee extension, 4/5 ankle DF, EHL, and PF SKIN: left D1-D2 interdigit ulcer (dry) coccyx area erythematous, blanchable ASSESSMENT:63-year-old M with past medical history of HTN who presents status post stroke PLAN: 1.Rehab-PT advance gait training, trunk control, strengthen, stretch, maintain ROM bilat LE- e-stim prn, ambulating with assistance short distances with [facility] OT- advance ADL management, strengthen, stretch, maintain ROM bilat UE, e-stim prn, left shoulder stabilization, consider taping, sling during ambulation for shoulder protectin, consider trial of mirror therapy for left arm 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 Neuro: s/p right MCA infarct s/p TPA and ICA/MCA thrombectomy with stenting with right basal ganglia and willams radiata hemorrhagic conversion - patient with dysphagia and left sided paresis, -11-12-19 patient with new flaccid paresis of LUE and weaker LLE, concern for new infarct or hemorrhage- CTH and MRI negative for acute hemorrhage/conversion or new infarct, tapering decadron started to treat edema seen on MRI in the are of the old basal ganglia hemorrhagic infarct with hope of motor return on left side -c/u ASA, Brillinta, BP control, and statin for secondary stroke prevention -will need neurology referral -f/u Dr Molina neurosurgeon upon d/c 3. Cardiac: hx HTN, c/u metoprolol changed to succinate 12.5 daily for soft BPs, c/u lisinopril, HCTZ- medicine consulted to assist in management, recent ECHO at [facility] not suggestive of systolic/diastolic CHF -HLD- c/u statin 4. Resp: hx of smoking with cough, c/u Duonebs standing, patient wheezing one exam, monitor for infection, encourage incentive spirometry -nicotine patch decreased dosing -hx of YAN but did not finish getting fitted for CPAP mask, c/u nocturnal 02, will need referral to pulmonology 5. Vasc: recent acute occlusion left superficial femoral artery, patient asymptomatic, will consider inhouse vascular consult prn 6. : hx of prostate cancer s/p prostatotomy- patient self-caths about once a month at home, failed TOV- Cortes reinserted 11-16-19, will need outpatient urology f/u -c/u FLomax 0.8 mg qhs 7. DVT ppx: Teds, Dopplers negative, avoiding chemoprophylaxis given recent hemorrhage 8. GI ppx: protonix 9. Psych: insomnia- c/u trazodone 50mg -c/u prozac 20mg qHS for motor recovery in stroke -hx of chronic ETOH use- c/u gabapentin 300 mg TID 10. Skin- c/u barrier cream to sacrum, optifoam ordered, and roho cushion for wheelchair usage to prevent skin breakdown 11. Pain: c/u tylenol 12. Disp: 12-07-19 to home, progressing towards goals Allergies Coded Allergies: No Known Allergies (Verified Allergy, Unknown, 11/06/19) Vital Signs Vital Signs Date Time Temp Pulse Resp B/P (MAP) Pulse Ox O2 Delivery O2 Flow Rate FiO2 11/26/19 08:50 116/71 11/26/19 05:48 97.0 71 16 95 Room Air Laboratory Data CBC/BMP Laboratory Tests 11/26/19 06:29 Labs 24H Laboratory Tests 2 11/26/19 06:29: Immature Granulocyte % (Auto) 0.3, Neutrophils (%) (Auto) 64.3, Lymphocytes (%) (Auto) 22.0L, Monocytes (%) (Auto) 8.2H, Eosinophils (%) (Auto) 4.3H, Basophils (%) (Auto) 0.9, Neutrophils # (Auto) 6.1, Lymphocytes # (Auto) 2.1, Monocytes # (Auto) 0.8, Eosinophils # (Auto) 0.4, Basophils # (Auto) 0.1, Nucleated Red Blood Cells % (auto) 0.0, Anion Gap 9, Glomerular Filtration Rate > 60.0, Calcium Level 8.5L Current Medications Current Medications Current Medications Medications (Trade) Dose Ordered Sig/Cj Route PRN Reason Start Time Stop Time Status Last Admin Dose Admin Acetaminophen (Tylenol Tab) 650 mg Q4HP PRN PO fever/MILD PAIN 11/06/19 16:15 11/09/19 14:23 DC 11/07/19 08:35 Acetaminophen (Tylenol Tab) 1,000 mg TID PO 11/09/19 16:00 11/09/19 15:15 DC Acetaminophen (Tylenol Tab) 1,000 mg TID PO 11/09/19 16:00 11/26/19 08:49 Acetaminophen (Tylenol Tab) 1,000 mg TIDP PRN PO PAIN 11/09/19 16:00 11/09/19 15:38 DC Albuterol/ Ipratropium (Duoneb (Ipr 0.5mg/Alb 2.5mg)) 3 ml RTID NEB 11/06/19 20:00 11/10/19 16:35 DC 11/10/19 07:52 Albuterol/ Ipratropium (Duoneb (Ipr 0.5mg/Alb 2.5mg)) 3 ml RTID NEB 11/13/19 14:00 11/25/19 19:56 Albuterol/ Ipratropium (Duoneb (Ipr 0.5mg/Alb 2.5mg)) 3 ml RTID PRN NEB SHORTNESS OF BREATH 11/10/19 16:45 11/13/19 12:47 DC Aspirin (Ecotrin) 81 mg DAILY PO 11/07/19 09:00 11/26/19 08:49 Atorvastatin Calcium (Lipitor) 40 mg QHS PO 11/06/19 21:00 Cancel Atorvastatin Calcium (Lipitor) 80 mg QHS PO 11/06/19 21:00 11/25/19 20:57 Bacitracin (Bacitracin Oint) apply to the head of pe... BID TOP 11/21/19 09:00 11/26/19 08:51 Dexamethasone (Decadron) 2 mg BID PO 11/16/19 21:00 11/20/19 12:00 DC 11/20/19 09:57 Dexamethasone (Decadron) 2 mg DAILY PO 11/21/19 09:00 11/24/19 09:01 DC 11/24/19 08:51 Dexamethasone (Decadron) 2 mg TID PO 11/12/19 21:00 11/12/19 18:21 DC Dexamethasone (Decadron) 2 mg TID PO 11/12/19 21:00 11/16/19 17:54 DC 11/16/19 16:21 Docusate Sodium (Colace) 100 mg BID PO 11/06/19 21:00 11/26/19 08:49 Escitalopram Oxalate (Lexapro) 20 mg QHS PO 11/09/19 21:00 11/12/19 14:03 DC 11/11/19 21:01 Fluoxetine HCl (PROzac) 20 mg QHS PO 11/12/19 21:00 11/25/19 20:58 Gabapentin (Neurontin) 300 mg TID PO 11/10/19 21:00 11/26/19 08:49 Home Med (Med Rec Complete!) ASDIRECTED XX 11/06/19 17:45 11/06/19 17:44 DC Hydrochlorothiazide (Hydrodiuril) 25 mg DAILY PO 11/07/19 09:00 11/26/19 08:49 Lidocaine HCl (Lidocaine 2% Urojet) APPLY TO CATHETER FOR P... ASDIRECTED PRN TOP FOR COMFORT 11/11/19 20:30 11/15/19 00:46 Lisinopril (Prinivil) 20 mg DAILY PO 11/16/19 09:00 11/26/19 08:50 Lisinopril (Prinivil) 40 mg DAILY PO 11/07/19 09:00 11/15/19 17:09 DC 11/15/19 09:22 Magnesium Hydroxide (Milk Of Magnesia) 30 ml DAILYPRN PRN PO CONSTIPATION 11/06/19 16:15 Metoprolol Succinate (TopROL XL) 12.5 mg DAILY PO 11/19/19 09:00 11/26/19 08:50 Metoprolol Tartrate (Lopressor) 50 mg BID PO 11/06/19 21:00 11/07/19 09:48 DC 11/07/19 08:31 Metoprolol Tartrate (Lopressor) 50 mg BID PO 11/15/19 21:00 11/19/19 10:01 DC 11/18/19 20:56 Metoprolol Tartrate (Lopressor) 75 mg BID PO 11/07/19 21:00 11/15/19 17:09 DC 11/15/19 09:24 Miscellaneous (Unresolved Clarification Entry) SEE LABEL COMMENTS DAILY XX 11/06/19 09:00 11/07/19 09:55 DC 11/06/19 18:17 Nicotine (Nicoderm Cq 14mg) 1 patch DAILY TD 11/13/19 14:00 11/26/19 08:49 Nicotine (Nicoderm Cq 21mg) 1 patch DAILY TD 11/06/19 09:00 11/13/19 12:47 DC 11/13/19 08:49 Pantoprazole Sodium (Protonix) 40 mg DAILY PO 11/06/19 09:00 11/26/19 08:49 Senna (Senokot) 1 tab QHS PO 11/06/19 21:00 11/25/19 20:58 Tamsulosin HCl (Flomax) 0.8 mg QHS PO 11/06/19 21:00 11/25/19 20:57 Ticagrelor (Brilinta) 90 mg BID PO 11/06/19 21:00 11/26/19 08:49 Trazodone HCl (Desyrel) 25 mg DAILY@0000 PO 11/09/19 00:00 11/12/19 17:57 DC 11/12/19 00:14 Trazodone HCl (Desyrel) 25 mg DAILY@2200 PO 11/12/19 22:00 11/19/19 11:39 DC 11/18/19 20:56 Trazodone HCl (Desyrel) 25 mg QHSP PRN PO INSOMNIA 11/06/19 16:15 11/08/19 11:19 DC Trazodone HCl (Desyrel) 50 mg DAILY@2200 PO 11/19/19 22:00 11/25/19 20:58 ANNE BENAVIDEZ MD Nov 26, 2019 12:40
[2019-11-26 14:00] VITALS: BP 115/72
[2019-11-26 20:00] VITALS: BP 124/69
[2019-11-26] MEDS: ATORVASTATIN 20 MG TAB PO SCH (21:38)
[2019-11-26] MEDS: FLUoxetine 20 MG CAP PO SCH (21:39)
[2019-11-26] MEDS: traZODone 50 MG TAB PO SCH (21:39)
[2019-11-26] MEDS: TAMSULOSIN 0.4 MG CAP PO SCH (21:39)
[2019-11-26] MEDS: SENNA 8.6 MG TAB (SENOKOT) PO SCH (21:39)
[2019-11-26] MEDS: LIDOCAINE 2% 5ML JELLY UROJET TOP PRN (22:17)
[2019-11-27] MEDS: LIDOCAINE 2% 5ML JELLY UROJET TOP PRN ×2 (05:31→16:27)
[2019-11-27 06:00] VITALS: BP 119/69
--- NOTE | 2019-11-27 07:57 | SMCUROLCON ---
Urology Consultation General Date of Consultation 11/27/19 Reason For Consultation This patient is seen for Acute Ischemic R Mca Stroke. History of Present Illness The patient is a 63-year-old male with a past medical history for prostate cancer and XRT with a recent CVA. Since the XRT patient has been on intermittent self catheterization due do a radiation induced urethral stricture. He has had a thomas catheter in place for the past 2 weeks and has developed a urethral meatus erosion. Past Medical History Medical History as above Surgical Hstory reviewed Family History Significant Family History: No pertinent family hx Social History * Smoker: non-smoker Alcohol: Denies Drugs: denies Medications Current Medications Current Medications Medications (Trade) Dose Ordered Sig/Cj Route PRN Reason Start Time Stop Time Status Last Admin Dose Admin Acetaminophen (Tylenol Tab) 650 mg Q4HP PRN PO fever/MILD PAIN 11/06/19 16:15 11/09/19 14:23 DC 11/07/19 08:35 Acetaminophen (Tylenol Tab) 1,000 mg TID PO 11/09/19 16:00 11/09/19 15:15 DC Acetaminophen (Tylenol Tab) 1,000 mg TID PO 11/09/19 16:00 11/26/19 21:39 Acetaminophen (Tylenol Tab) 1,000 mg TIDP PRN PO PAIN 11/09/19 16:00 11/09/19 15:38 DC Albuterol/ Ipratropium (Duoneb (Ipr 0.5mg/Alb 2.5mg)) 3 ml RTID NEB 11/06/19 20:00 11/10/19 16:35 DC 11/10/19 07:52 Albuterol/ Ipratropium (Duoneb (Ipr 0.5mg/Alb 2.5mg)) 3 ml RTID NEB 11/13/19 14:00 11/26/19 21:24 Albuterol/ Ipratropium (Duoneb (Ipr 0.5mg/Alb 2.5mg)) 3 ml RTID PRN NEB SHORTNESS OF BREATH 11/10/19 16:45 11/13/19 12:47 DC Aspirin (Ecotrin) 81 mg DAILY PO 11/07/19 09:00 11/26/19 08:49 Atorvastatin Calcium (Lipitor) 40 mg QHS PO 11/06/19 21:00 Cancel Atorvastatin Calcium (Lipitor) 80 mg QHS PO 11/06/19 21:00 11/26/19 21:38 Bacitracin (Bacitracin Oint) apply to the head of pe... BID TOP 11/21/19 09:00 11/26/19 21:40 Dexamethasone (Decadron) 2 mg BID PO 11/16/19 21:00 11/20/19 12:00 DC 11/20/19 09:57 Dexamethasone (Decadron) 2 mg DAILY PO 11/21/19 09:00 11/24/19 09:01 DC 11/24/19 08:51 Dexamethasone (Decadron) 2 mg TID PO 11/12/19 21:00 11/12/19 18:21 DC Dexamethasone (Decadron) 2 mg TID PO 11/12/19 21:00 11/16/19 17:54 DC 11/16/19 16:21 Docusate Sodium (Colace) 100 mg BID PO 11/06/19 21:00 11/26/19 21:39 Escitalopram Oxalate (Lexapro) 20 mg QHS PO 11/09/19 21:00 11/12/19 14:03 DC 11/11/19 21:01 Fluoxetine HCl (PROzac) 20 mg QHS PO 11/12/19 21:00 11/26/19 21:39 Gabapentin (Neurontin) 300 mg TID PO 11/10/19 21:00 11/26/19 21:38 Home Med (Med Rec Complete!) ASDIRECTED XX 11/06/19 17:45 11/06/19 17:44 DC Hydrochlorothiazide (Hydrodiuril) 25 mg DAILY PO 11/07/19 09:00 11/26/19 08:49 Lidocaine HCl (Lidocaine 2% Urojet) APPLY TO CATHETER FOR P... ASDIRECTED PRN TOP FOR COMFORT 11/11/19 20:30 11/27/19 05:31 Lisinopril (Prinivil) 20 mg DAILY PO 11/16/19 09:00 11/26/19 08:50 Lisinopril (Prinivil) 40 mg DAILY PO 11/07/19 09:00 11/15/19 17:09 DC 11/15/19 09:22 Magnesium Hydroxide (Milk Of Magnesia) 30 ml DAILYPRN PRN PO CONSTIPATION 11/06/19 16:15 Metoprolol Succinate (TopROL XL) 12.5 mg DAILY PO 11/19/19 09:00 11/26/19 08:50 Metoprolol Tartrate (Lopressor) 50 mg BID PO 11/06/19 21:00 11/07/19 09:48 DC 11/07/19 08:31 Metoprolol Tartrate (Lopressor) 50 mg BID PO 11/15/19 21:00 11/19/19 10:01 DC 11/18/19 20:56 Metoprolol Tartrate (Lopressor) 75 mg BID PO 11/07/19 21:00 11/15/19 17:09 DC 11/15/19 09:24 Miscellaneous (Unresolved Clarification Entry) SEE LABEL COMMENTS DAILY XX 11/06/19 09:00 11/07/19 09:55 DC 11/06/19 18:17 Nicotine (Nicoderm Cq 14mg) 1 patch DAILY TD 11/13/19 14:00 11/26/19 08:49 Nicotine (Nicoderm Cq 21mg) 1 patch DAILY TD 11/06/19 09:00 11/13/19 12:47 DC 11/13/19 08:49 Pantoprazole Sodium (Protonix) 40 mg DAILY PO 11/06/19 09:00 11/26/19 08:49 Senna (Senokot) 1 tab QHS PO 11/06/19 21:00 11/26/19 21:39 Tamsulosin HCl (Flomax) 0.8 mg QHS PO 11/06/19 21:00 11/26/19 21:39 Ticagrelor (Brilinta) 90 mg BID PO 11/06/19 21:00 11/26/19 21:39 Trazodone HCl (Desyrel) 25 mg DAILY@0000 PO 11/09/19 00:00 11/12/19 17:57 DC 11/12/19 00:14 Trazodone HCl (Desyrel) 25 mg DAILY@2200 PO 11/12/19 22:00 11/19/19 11:39 DC 11/18/19 20:56 Trazodone HCl (Desyrel) 25 mg QHSP PRN PO INSOMNIA 11/06/19 16:15 11/08/19 11:19 DC Trazodone HCl (Desyrel) 50 mg DAILY@2200 PO 11/19/19 22:00 11/26/19 21:39 Allergies Allergies: Coded Allergies: No Known Allergies (Verified Allergy, Unknown, 11/06/19) Review of Systems General: Denies: Chills, Night Sweats Constitutional: Denies: Fever Genitourinary: Reports: Retention (in cic); Denies: Dysuria, Frequency, Incontinence, Hematuria Endocrine: Denies: Polydipsia, Polyuria Physical Examination General Exam: Cooperative, No Acute Distress Male Exam: Edema, Erythema (urethral meatus erosion and balanitis) Psych Exam: Mental status NL Vital Signs/I&O Vital Signs Date Time Temp Pulse Resp B/P (MAP) Pulse Ox O2 Delivery O2 Flow Rate FiO2 11/27/19 06:00 97.8 71 18 119/69 (86) 95 Room Air I&O- Last 24 Hours up to 6 AM 11/27/19 05:59 Intake Total 900 ml Output Total 2050 ml Balance -1150 ml Assessment Urethral erosion as complication from thomas catheter. Balanitis. Plan Agree with clary thomas. CIC is best course of action. My use a gentle topical corticosteroid for the balanitis. No other intervention needed at the present time. Time Spent on Consult: Time Spent / Consult (Minutes): 30 ISHAAN SIERRA MD Nov 27, 2019 07:57
[2019-11-27] MEDS: IPRATROPIUM 0.5MG/ALBUTEROL 2.5MG INH SOL UD 3ML (DUONEB)(J7620) NEB SCH ×3 (08:00→19:46)
[2019-11-27] MEDS: ASPIRIN 81 MG ENTERIC TAB PO SCH (08:17)
[2019-11-27] MEDS: hydroCHLOROthiazide 25 MG TAB PO SCH (08:17)
[2019-11-27] MEDS: TICAGRELOR 90 MG TABLET (BRILINTA) PO SCH ×2 (08:17→20:43)
[2019-11-27] MEDS: GABAPENTIN 300 MG CAP PO SCH ×3 (08:17→20:44)
[2019-11-27] MEDS: PANTOPRAZOLE 40MG TAB (PROTONIX) PO SCH (08:17)
[2019-11-27] MEDS: lisinopriL 20 MG TAB PO SCH (08:17)
[2019-11-27] MEDS: METOPROLOL SUCC *XL* 12.5MG PER 1/2 TAB (TopROL *XL*) PO SCH (08:17)
[2019-11-27] MEDS: DOCUSATE SODIUM 100 MG CAP PO SCH ×2 (08:17→20:44)
[2019-11-27] MEDS: NICOTINE 14 MG/24 HR TRANSDERMAL TD SCH (08:18)
[2019-11-27] MEDS: ACETAMINOPHEN 500 MG TAB PO SCH ×3 (08:18→20:44)
[2019-11-27] MEDS: BACITRACIN OINT 30GM TOP SCH (08:19)
[2019-11-27] MEDS: REMEDY PHYTOPLEX Z-GUARD PASTE 113GM TUBE (FROM STOREROOM PRODUCT) TOP SCH ×3 (08:19→20:45)
[2019-11-27] MEDS: TRIAMCINOLONE ACETONIDE 0.025 % 80 GM CREAM TOP SCH ×2 (09:00→20:44)
[2019-11-27 14:00] VITALS: BP 111/59
--- NOTE | 2019-11-27 14:14 | IPNPDOC ---
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 REVIEW OF SYSTEMS: The following is a completed review of systems and has been reviewed. Review of systems otherwise unremarkable. PAIN: Patient self reports no pain EYES: decreased vision on the left EARS, NOSE, & THROAT: +dysphagia (improving) CARDIOVASCULAR: Denies chest pain or palpitations PULMONARY: Denies shortness of breath, +cough (improving) GASTROINTESTINAL: Denies constipation/diarrhea GENITOURINARY: urinary retention (chronic) MUSCULOSKELETAL: left sided weakness NEUROLOGICAL:left sided paresis HEMATOLOGICAL: denies easy bruising SKIN: left toe ulcer PSYCHIATRIC: Unremarkable All other review of systems found to be negative. PHYSICAL EXAMINATION: VITAL SIGNS: Please see below. GENERAL: Pleasant and cooperative. No acute distress. HEENT: PERRL. Extraocular movements grossly intact Clear conjunctiva CARDIOVASCULAR: Regular rate and rhythm. No murmurs, rubs, or gallops LUNGS: CTA ABDOMEN: Soft, nontender, nondistended. Positive bowel sounds. Normal active bowel sounds NEUROLOGICAL: Alert and oriented times three. Cranial nerves II through XII grossly intact. Sensation to light touch groslyinact in all4 extremities, + extinction to touch on the left (+)left eye-brow sparing left facial droop (improving) (-) Babinksi bilat 1/4+ tone left elbow extensors EXTREMITIES: 5\\5 strength right upper extremities. Left UE 1/5 elbow flexors, 1/5 elbow extensors, 0/5 wrist extension, 0/5 para professional 5/5 RLE, 3+/5 left hip flexion, knee extension, 4/5 ankle DF, EHL, and PF SKIN: left D1-D2 interdigit ulcer (dry) coccyx area erythematous, blanchable ASSESSMENT:63-year-old M with past medical history of HTN who presents status post stroke PLAN: 1.Rehab-PT advance gait training, trunk control, strengthen, stretch, maintain ROM bilat LE- e-stim prn, ambulating with assistance short distances with [facility] OT- advance ADL management, strengthen, stretch, maintain ROM bilat UE, e-stim prn, left shoulder stabilization, consider taping, sling during ambulation for shoulder protectin, consider trial of mirror therapy for left arm INDIGO VAT 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 Neuro: s/p right MCA infarct s/p TPA and ICA/MCA thrombectomy with stenting with right basal ganglia and willams radiata hemorrhagic conversion - patient with dysphagia and left sided paresis, -11-12-19 patient with new flaccid paresis of LUE and weaker LLE, concern for new infarct or hemorrhage- CTH and MRI negative for acute hemorrhage/conversion or new infarct, tapering decadron started to treat edema seen on MRI in the are of the old basal ganglia hemorrhagic infarct with hope of motor return on left side -c/u ASA, Brillinta, BP control, and statin for secondary stroke prevention -will need neurology referral -f/u Dr Molina neurosurgeon upon d/c 3. Cardiac: hx HTN, c/u metoprolol changed to succinate 12.5 daily for soft BPs, c/u lisinopril, HCTZ- medicine consulted to assist in management, recent ECHO at [facility] not suggestive of systolic/diastolic CHF -HLD- c/u statin 4. Resp: hx of smoking with cough, c/u Duonebs standing, patient wheezing one exam, monitor for infection, encourage incentive spirometry -nicotine patch decreased dosing -hx of YAN but did not finish getting fitted for CPAP mask, c/u nocturnal 02, will need referral to pulmonology 5. Vasc: recent acute occlusion left superficial femoral artery, patient asymptomatic, will consider inhouse vascular consult prn 6. : hx of prostate cancer s/p prostatotomy- patient had self-caths about once a month at home, failed TOV- Cortes reinserted 11-16-19 and then remvoed 2-01-10 due to urethral erosion, urology consulted, recs greatly appreciated, will d/c bacitracin and start triamcinolone, will attempt to teach patient to self cath one-handed, adaptive equipment "HouseHold" has been ordered to assist with stabilizing patient's penis for self-cathing- if patient unable to perform self- cath per urology Cortes is not an option and will need supra-pubic cath -c/u FLomax 0.8 mg qhs 7. DVT ppx: Teds, Dopplers negative, avoiding chemoprophylaxis given recent hemorrhage 8. GI ppx: protonix 9. Psych: insomnia- c/u trazodone 50mg -c/u prozac 20mg qHS for motor recovery in stroke -hx of chronic ETOH use- c/u gabapentin 300 mg TID 10. Skin- c/u barrier cream to sacrum, optifoam ordered, and roho cushion for wheelchair usage to prevent skin breakdown 11. Pain: c/u tylenol 12. Disp: 12-07-19 to home, progressing towards goals Allergies Coded Allergies: No Known Allergies (Verified Allergy, Unknown, 11/06/19) Vital Signs Vital Signs Date Time Temp Pulse Resp B/P (MAP) Pulse Ox O2 Delivery O2 Flow Rate FiO2 11/27/19 08:17 119/69 11/27/19 06:00 97.8 71 18 95 Room Air Current Medications Current Medications Current Medications Medications (Trade) Dose Ordered Sig/Cj Route PRN Reason Start Time Stop Time Status Last Admin Dose Admin Acetaminophen (Tylenol Tab) 650 mg Q4HP PRN PO fever/MILD PAIN 11/06/19 16:15 11/09/19 14:23 DC 11/07/19 08:35 Acetaminophen (Tylenol Tab) 1,000 mg TID PO 11/09/19 16:00 11/09/19 15:15 DC Acetaminophen (Tylenol Tab) 1,000 mg TID PO 11/09/19 16:00 11/27/19 08:18 Acetaminophen (Tylenol Tab) 1,000 mg TIDP PRN PO PAIN 11/09/19 16:00 11/09/19 15:38 DC Albuterol/ Ipratropium (Duoneb (Ipr 0.5mg/Alb 2.5mg)) 3 ml RTID NEB 11/06/19 20:00 11/10/19 16:35 DC 11/10/19 07:52 Albuterol/ Ipratropium (Duoneb (Ipr 0.5mg/Alb 2.5mg)) 3 ml RTID NEB 11/13/19 14:00 11/26/19 21:24 Albuterol/ Ipratropium (Duoneb (Ipr 0.5mg/Alb 2.5mg)) 3 ml RTID PRN NEB SHORTNESS OF BREATH 11/10/19 16:45 11/13/19 12:47 DC Aspirin (Ecotrin) 81 mg DAILY PO 11/07/19 09:00 11/27/19 08:17 Atorvastatin Calcium (Lipitor) 40 mg QHS PO 11/06/19 21:00 Cancel Atorvastatin Calcium (Lipitor) 80 mg QHS PO 11/06/19 21:00 11/26/19 21:38 Bacitracin (Bacitracin Oint) apply to the head of pe... BID TOP 11/21/19 09:00 11/27/19 10:54 DC 11/26/19 21:40 Dexamethasone (Decadron) 2 mg BID PO 11/16/19 21:00 11/20/19 12:00 DC 11/20/19 09:57 Dexamethasone (Decadron) 2 mg DAILY PO 11/21/19 09:00 11/24/19 09:01 DC 11/24/19 08:51 Dexamethasone (Decadron) 2 mg TID PO 11/12/19 21:00 11/12/19 18:21 DC Dexamethasone (Decadron) 2 mg TID PO 11/12/19 21:00 11/16/19 17:54 DC 11/16/19 16:21 Docusate Sodium (Colace) 100 mg BID PO 11/06/19 21:00 11/27/19 08:17 Escitalopram Oxalate (Lexapro) 20 mg QHS PO 11/09/19 21:00 11/12/19 14:03 DC 11/11/19 21:01 Fluoxetine HCl (PROzac) 20 mg QHS PO 11/12/19 21:00 11/26/19 21:39 Gabapentin (Neurontin) 300 mg TID PO 11/10/19 21:00 11/27/19 08:17 Home Med (Med Rec Complete!) ASDIRECTED XX 11/06/19 17:45 11/06/19 17:44 DC Hydrochlorothiazide (Hydrodiuril) 25 mg DAILY PO 11/07/19 09:00 11/27/19 08:17 Lidocaine HCl (Lidocaine 2% Urojet) APPLY TO CATHETER FOR P... ASDIRECTED PRN TOP FOR COMFORT 11/11/19 20:30 11/27/19 05:31 Lisinopril (Prinivil) 20 mg DAILY PO 11/16/19 09:00 11/27/19 08:17 Lisinopril (Prinivil) 40 mg DAILY PO 11/07/19 09:00 11/15/19 17:09 DC 11/15/19 09:22 Magnesium Hydroxide (Milk Of Magnesia) 30 ml DAILYPRN PRN PO CONSTIPATION 11/06/19 16:15 Metoprolol Succinate (TopROL XL) 12.5 mg DAILY PO 11/19/19 09:00 11/27/19 08:17 Metoprolol Tartrate (Lopressor) 50 mg BID PO 11/06/19 21:00 11/07/19 09:48 DC 11/07/19 08:31 Metoprolol Tartrate (Lopressor) 50 mg BID PO 11/15/19 21:00 11/19/19 10:01 DC 11/18/19 20:56 Metoprolol Tartrate (Lopressor) 75 mg BID PO 11/07/19 21:00 11/15/19 17:09 DC 11/15/19 09:24 Miscellaneous (Unresolved Clarification Entry) SEE LABEL COMMENTS DAILY XX 11/06/19 09:00 11/07/19 09:55 DC 11/06/19 18:17 Nicotine (Nicoderm Cq 14mg) 1 patch DAILY TD 11/13/19 14:00 11/27/19 08:18 Nicotine (Nicoderm Cq 21mg) 1 patch DAILY TD 11/06/19 09:00 11/13/19 12:47 DC 11/13/19 08:49 Pantoprazole Sodium (Protonix) 40 mg DAILY PO 11/06/19 09:00 11/27/19 08:17 Senna (Senokot) 1 tab QHS PO 11/06/19 21:00 11/26/19 21:39 Tamsulosin HCl (Flomax) 0.8 mg QHS PO 11/06/19 21:00 11/26/19 21:39 Ticagrelor (Brilinta) 90 mg BID PO 11/06/19 21:00 11/27/19 08:17 Trazodone HCl (Desyrel) 25 mg DAILY@0000 PO 11/09/19 00:00 11/12/19 17:57 DC 11/12/19 00:14 Trazodone HCl (Desyrel) 25 mg DAILY@2200 PO 11/12/19 22:00 11/19/19 11:39 DC 11/18/19 20:56 Trazodone HCl (Desyrel) 25 mg QHSP PRN PO INSOMNIA 11/06/19 16:15 11/08/19 11:19 DC Trazodone HCl (Desyrel) 50 mg DAILY@2200 PO 11/19/19 22:00 11/26/19 21:39 Triamcinolone Acetonide (Kenalog 0.025% Cream) apply to ventral uret... BID TOP 11/27/19 09:00 ANNE BENAVIDEZ MD Nov 27, 2019 14:14
--- NOTE | 2019-11-27 16:27 | IPNPDOC ---
Text Note Date of Service The patient was seen on 11/27/19. NOTE Subjective Chief Complaint/HPI Mr. Fair is a 63 year old male, now on the ARU s/p right MCA and ICA infarct with tPA and stent to the right ICA. Pt is seen sitting up in a recliner today. He has been assessed by urology for straight-cath at home s/p CVA. Pt p reviously self-catheterized at home x 2 years; he reportedly had been restricting his fluids prior to admission as he did not want to have to cath at home. Dr. Monteiro has also found some solutions for the pt to self-cath with L sided hemiparesis. He continue to look forward to being d/c on the . Pt denied any acute issues at this time. Objective Physical Examination General Exam: Positive: Alert, Cooperative, No Acute Distress Eye Exam: Positive: PERRLA, Conjunctiva & lids normal; Negative: Sclera icteric ENT Exam: Positive: Atraumatic, Mucous membr. moist/pink, Pharynx Normal Neck Exam: Positive: Supple; Negative: JVD, thyromegaly Chest Exam: Positive: Normal air movement, Wheezing Heart Exam: Positive: Rate Normal, Regular Rhythm, Normal S1, Normal S2; Negative: Murmurs, Rubs Telemetry: Positive: No significant arrhythmia Abdomen Exam: Positive: Normal bowel sounds, Soft; Negative: Tenderness Extremity Exam: Negative: Clubbing, Cyanosis, Edema, Swelling Skin Exam: Positive: Nl turgor and temperature Neuro Exam: Positive: Normal Speech (sl persistent dysphagia ), Other (Chronic left hemiparesis) Psych Exam: Positive: Mood NL Assessment /Plan Assessment Mr. Fair is a 63 year old male, now on the ARU s/p right MCA and ICA infarct wit h tPA, thrombolysis and stent to the right ICA. Pt subsequently developed a post-procedure hemorrhage in the right basal ganglia, and the willams radiata which eventually resolved. Further, he was later found to have decreased pulses in LLE 2/ 50-75% stenosis of the common femoral artery and acute occlusion of the superficial femoral artery possibly d/t mechanical thrombectomy. Right MCA and ICA infarct with subsequent left-sided hemiparesis and dysphagia - s/p neuro intervention as above - on ASA and Brilinta - continued management and dispo per ARU - neuro follow-up with Dr. 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 History of tobacco abuse - continue nicotine patches prn - Wheezing - encouraged to use incentive spirometry hourly - has nebs prn VTE Exclusion Mechanical Proph: Ordered VS,Fishbone, I+O VS, Fishbone, I+O Vital Signs Date Time Temp Pulse Resp B/P (MAP) Pulse Ox O2 Delivery O2 Flow Rate FiO2 11/27/19 14:00 97.2 103 20 111/59 (76) 98 Room Air I&O- Last 24 Hours up to 6 AM 11/27/19 06:00 Intake Total 1200 ml Output Total 2050 ml Balance -850 ml Attending Note Attending Note I have reviewed the documentation and assessed the patient independently. I have made necessary revisions as needed. I agree with the findings, assessment and plan stated above. DARIUSZ JOSHUA PA-C Nov 27, 2019 16:27 BERRY MURRAY MD Dec 05, 2019 07:26
[2019-11-27 20:00] VITALS: BP 100/57
[2019-11-27] MEDS: TAMSULOSIN 0.4 MG CAP PO SCH (20:43)
[2019-11-27] MEDS: FLUoxetine 20 MG CAP PO SCH (20:44)
[2019-11-27] MEDS: traZODone 50 MG TAB PO SCH (20:44)
[2019-11-27] MEDS: SENNA 8.6 MG TAB (SENOKOT) PO SCH (20:44)
[2019-11-27] MEDS: ATORVASTATIN 20 MG TAB PO SCH (20:44)
[2019-11-28 06:19] VITALS: BP 112/68
[2019-11-28] MEDS: IPRATROPIUM 0.5MG/ALBUTEROL 2.5MG INH SOL UD 3ML (DUONEB)(J7620) NEB SCH ×3 (08:00→19:52)
[2019-11-28] MEDS: GABAPENTIN 300 MG CAP PO SCH ×3 (08:40→21:10)
[2019-11-28] MEDS: lisinopriL 20 MG TAB PO SCH (08:40)
[2019-11-28] MEDS: METOPROLOL SUCC *XL* 12.5MG PER 1/2 TAB (TopROL *XL*) PO SCH (08:40)
[2019-11-28] MEDS: TICAGRELOR 90 MG TABLET (BRILINTA) PO SCH ×2 (08:40→21:10)
[2019-11-28] MEDS: ASPIRIN 81 MG ENTERIC TAB PO SCH (08:40)
[2019-11-28] MEDS: DOCUSATE SODIUM 100 MG CAP PO SCH ×2 (08:40→21:09)
[2019-11-28] MEDS: ACETAMINOPHEN 500 MG TAB PO SCH ×3 (08:40→21:09)
[2019-11-28] MEDS: PANTOPRAZOLE 40MG TAB (PROTONIX) PO SCH (08:40)
[2019-11-28] MEDS: REMEDY PHYTOPLEX Z-GUARD PASTE 113GM TUBE (FROM STOREROOM PRODUCT) TOP SCH ×3 (08:41→21:00)
[2019-11-28] MEDS: hydroCHLOROthiazide 25 MG TAB PO SCH (08:41)
[2019-11-28] MEDS: NICOTINE 14 MG/24 HR TRANSDERMAL TD SCH (08:41)
[2019-11-28] MEDS: TRIAMCINOLONE ACETONIDE 0.025 % 80 GM CREAM TOP SCH ×2 (08:43→21:12)
[2019-11-28 14:00] VITALS: BP 111/65
[2019-11-28] MEDS: LIDOCAINE 2% 5ML JELLY UROJET TOP PRN (16:50)
[2019-11-28 20:00] VITALS: BP 105/66
[2019-11-28] MEDS: SENNA 8.6 MG TAB (SENOKOT) PO SCH (21:09)
[2019-11-28] MEDS: TAMSULOSIN 0.4 MG CAP PO SCH (21:10)
[2019-11-28] MEDS: ATORVASTATIN 20 MG TAB PO SCH (21:10)
[2019-11-28] MEDS: traZODone 50 MG TAB PO SCH (21:10)
[2019-11-28] MEDS: FLUoxetine 20 MG CAP PO SCH (21:10)
[2019-11-29 06:00] VITALS: BP 117/69
[2019-11-29] MEDS: LIDOCAINE 2% 5ML JELLY UROJET TOP PRN (06:21)
[2019-11-29 06:59] LABS: BASO # 0.1 10^3/uL (0.0-0.2); BASO % 0.8 % (0.0-1.0); EOS # 0.4 10^3/uL (0.0-0.5); EOS % 4.7 % (0.0-3.0); HEMATOCRIT 49.3 % (42.0-52.0); HEMOGLOBIN 16.5 g/dl (13.5-17.5); LYMPH # 1.4 10^3/uL (1.5-5.0); LYMPH % 18.2 % (24.0-44.0); MEAN CORPUSCULAR HEMOGLOBIN 33.6 pg (27.0-33.0); MEAN CORPUSCULAR HGB CONC 33.5 g/dl (32.0-36.5); MEAN CORPUSCULAR VOLUME 100.4 fl (80.0-96.0); MONO # 0.6 10^3/uL (0.0-0.8); MONO % 8.2 % (0.0-5.0); NEUTROPHILS # 5.2 10^3/uL (1.5-8.5); NEUTROPHILS % 67.7 % (36.0-66.0); PLATELET COUNT, AUTOMATED 204 10^3/uL (150-450); RED BLOOD COUNT 4.91 10^6/uL (4.30-6.10); WHITE BLOOD COUNT 7.7 10^3/uL (4.0-10.0)
[2019-11-29 07:30] LABS: BLOOD UREA NITROGEN 17 MG/DL (7-18); CALCIUM LEVEL 8.6 MG/DL (8.8-10.2); CARBON DIOXIDE LEVEL 27 MEQ/L (21-32); CHLORIDE LEVEL 105 MEQ/L (98-107); CREATININE FOR GFR 0.71 MG/DL (0.70-1.30); GLOMERULAR FILTRATION RATE > 60.0 (>49); GLUCOSE, FASTING 92 MG/DL (70-100); POTASSIUM SERUM 4.7 MEQ/L (3.5-5.1); SODIUM LEVEL 138 MEQ/L (136-145)
[2019-11-29] MEDS: IPRATROPIUM 0.5MG/ALBUTEROL 2.5MG INH SOL UD 3ML (DUONEB)(J7620) NEB SCH ×3 (08:18→20:00)
[2019-11-29] MEDS: DOCUSATE SODIUM 100 MG CAP PO SCH ×2 (08:48→21:32)
[2019-11-29] MEDS: ASPIRIN 81 MG ENTERIC TAB PO SCH (08:49)
[2019-11-29] MEDS: METOPROLOL SUCC *XL* 12.5MG PER 1/2 TAB (TopROL *XL*) PO SCH (08:49)
[2019-11-29] MEDS: hydroCHLOROthiazide 25 MG TAB PO SCH (08:49)
[2019-11-29] MEDS: TICAGRELOR 90 MG TABLET (BRILINTA) PO SCH ×2 (08:49→21:49)
[2019-11-29] MEDS: PANTOPRAZOLE 40MG TAB (PROTONIX) PO SCH (08:50)
[2019-11-29] MEDS: GABAPENTIN 300 MG CAP PO SCH ×3 (08:50→21:33)
[2019-11-29] MEDS: ACETAMINOPHEN 500 MG TAB PO SCH ×3 (08:50→21:33)
[2019-11-29] MEDS: lisinopriL 20 MG TAB PO SCH (08:50)
[2019-11-29] MEDS: NICOTINE 14 MG/24 HR TRANSDERMAL TD SCH (08:51)
[2019-11-29] MEDS: REMEDY PHYTOPLEX Z-GUARD PASTE 113GM TUBE (FROM STOREROOM PRODUCT) TOP SCH ×3 (08:52→21:00)
[2019-11-29] MEDS: TRIAMCINOLONE ACETONIDE 0.025 % 80 GM CREAM TOP SCH ×2 (08:53→21:34)
[2019-11-29] MEDS: ANALGESIC BALM CRM 120 GM TOP SCH ×3 (11:10→21:35)
[2019-11-29 14:00] VITALS: BP 97/59
[2019-11-29 20:00] VITALS: BP 96/58
[2019-11-29] MEDS: SENNA 8.6 MG TAB (SENOKOT) PO SCH (21:32)
[2019-11-29] MEDS: traZODone 50 MG TAB PO SCH (21:33)
[2019-11-29] MEDS: ATORVASTATIN 20 MG TAB PO SCH (21:33)
[2019-11-29] MEDS: FLUoxetine 20 MG CAP PO SCH (21:33)
[2019-11-29] MEDS: TAMSULOSIN 0.4 MG CAP PO SCH (21:33)
[2019-11-30] MEDS: LIDOCAINE 2% 5ML JELLY UROJET TOP PRN ×2 (01:20→15:39)
[2019-11-30 06:00] VITALS: BP 117/65
[2019-11-30] MEDS: IPRATROPIUM 0.5MG/ALBUTEROL 2.5MG INH SOL UD 3ML (DUONEB)(J7620) NEB SCH ×3 (08:00→19:53)
[2019-11-30] MEDS: PANTOPRAZOLE 40MG TAB (PROTONIX) PO SCH (08:25)
[2019-11-30] MEDS: NICOTINE 14 MG/24 HR TRANSDERMAL TD SCH (08:25)
[2019-11-30] MEDS: ASPIRIN 81 MG ENTERIC TAB PO SCH (08:26)
[2019-11-30] MEDS: ACETAMINOPHEN 500 MG TAB PO SCH ×3 (08:26→20:34)
[2019-11-30] MEDS: GABAPENTIN 300 MG CAP PO SCH ×3 (08:26→20:34)
[2019-11-30] MEDS: hydroCHLOROthiazide 25 MG TAB PO SCH (08:26)
[2019-11-30] MEDS: METOPROLOL SUCC *XL* 12.5MG PER 1/2 TAB (TopROL *XL*) PO SCH (08:27)
[2019-11-30] MEDS: TICAGRELOR 90 MG TABLET (BRILINTA) PO SCH ×2 (08:27→20:34)
[2019-11-30] MEDS: DOCUSATE SODIUM 100 MG CAP PO SCH ×2 (08:27→20:33)
[2019-11-30] MEDS: lisinopriL 20 MG TAB PO SCH (08:27)
[2019-11-30] MEDS: ANALGESIC BALM CRM 120 GM TOP SCH ×3 (08:27→20:34)
[2019-11-30] MEDS: TRIAMCINOLONE ACETONIDE 0.025 % 80 GM CREAM TOP SCH ×2 (08:28→20:35)
[2019-11-30] MEDS: REMEDY PHYTOPLEX Z-GUARD PASTE 113GM TUBE (FROM STOREROOM PRODUCT) TOP SCH ×3 (08:28→20:35)
--- NOTE | 2019-11-30 10:43 | IPNPDOC ---
PM&R Progress Note DATE OF SERVICE: Nov 28, 2019 [employer] Progress Note Subjective: Patient seen in his room stating he is walking in therapy and feeling positive about his recovery. REVIEW OF SYSTEMS: The following is a completed review of systems and has been reviewed. Review of systems otherwise unremarkable. PAIN: Patient self reports no pain EYES: decreased vision on the left EARS, NOSE, & THROAT: +dysphagia (improving) CARDIOVASCULAR: Denies chest pain or palpitations PULMONARY: Denies shortness of breath, +cough (improving) GASTROINTESTINAL: Denies constipation/diarrhea GENITOURINARY: urinary retention (chronic) MUSCULOSKELETAL: left sided weakness NEUROLOGICAL:left sided paresis HEMATOLOGICAL: denies easy bruising SKIN: left toe ulcer PSYCHIATRIC: Unremarkable All other review of systems found to be negative. PHYSICAL EXAMINATION: VITAL SIGNS: Please see below. GENERAL: Pleasant and cooperative. No acute distress. HEENT: PERRL. Extraocular movements grossly intact Clear conjunctiva CARDIOVASCULAR: Regular rate and rhythm. No murmurs, rubs, or gallops LUNGS: CTA ABDOMEN: Soft, nontender, nondistended. Positive bowel sounds. Normal active bowel sounds NEUROLOGICAL: Alert and oriented times three. Cranial nerves II through XII grossly intact. Sensation to light touch groslyinact in all4 extremities, + extinction to touch on the left (+)left eye-brow sparing left facial droop (improving) (-) Babinksi bilat 1/4+ tone left elbow extensors EXTREMITIES: 5\\5 strength right upper extremities. 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 5/5 RLE, 3+/5 left hip flexion, knee extension, 4/5 ankle DF, EHL, and PF SKIN: left D1-D2 interdigit ulcer (dry) coccyx area erythematous, blanchable ASSESSMENT:63-year-old M with past medical history of HTN who presents status post stroke PLAN: 1.Rehab-PT advance gait training, trunk control, strengthen, stretch, maintain ROM bilat LE- e-stim prn, ambulating with assistance short distances with [facility] OT- advance ADL management, strengthen, stretch, maintain ROM bilat UE, e-stim prn, left shoulder stabilization, consider taping, sling during ambulation for shoulder protectin, consider trial of mirror therapy for left arm 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 Neuro: s/p right MCA infarct s/p TPA and ICA/MCA thrombectomy with stenting with right basal ganglia and willams radiata hemorrhagic conversion - patient with dysphagia and left sided paresis, -11-12-19 patient with new flaccid paresis of LUE and weaker LLE, concern for new infarct or hemorrhage- CTH and MRI negative for acute hemorrhage/conversion or new infarct, tapering decadron started to treat edema seen on MRI in the are of the old basal ganglia hemorrhagic infarct with hope of motor return on left side -c/u ASA, Brillinta, BP control, and statin for secondary stroke prevention -will need neurology referral -f/u Dr Molina neurosurgeon upon d/c 3. Cardiac: hx HTN, c/u metoprolol changed to succinate 12.5 daily for soft BPs, c/u lisinopril, HCTZ- medicine consulted to assist in management, recent ECHO at [facility] not suggestive of systolic/diastolic CHF -HLD- c/u statin 4. Resp: hx of smoking with cough, c/u Duonebs standing, patient wheezing one exam has resolved, monitor for infection, encourage incentive spirometry -nicotine patch decreased dosing -hx of YAN but did not finish getting fitted for CPAP mask, c/u nocturnal 02, will need referral to pulmonology 5. Vasc: recent acute occlusion left superficial femoral artery, patient asymptomatic, will consider inhouse vascular consult prn 6. : hx of prostate cancer s/p prostatotomy- patient had self-caths about once a month at home, failed TOV- Cortes reinserted 11-16-19 and then removed 11-26-19 due to urethral erosion, urology consulted, recs greatly appreciated, will d/c bacitracin and start triamcinolone, will attempt to teach patient to self cath one-handed, adaptive equipment "HouseHold" has been ordered to assist with stabilizing patient's penis for self-cathing- if patient unable to perform self- cath per urology Cortes is not an option and will need supra-pubic cath -c/u FLomax 0.8 mg qhs 7. DVT ppx: Teds, Dopplers negative, avoiding chemoprophylaxis given recent hemorrhage 8. GI ppx: protonix 9. Psych: insomnia- c/u trazodone 50mg -c/u prozac 20mg qHS for motor recovery in stroke -hx of chronic ETOH use- c/u gabapentin 300 mg TID 10. Skin- c/u barrier cream to sacrum, optifoam ordered, and roho cushion for wheelchair usage to prevent skin breakdown 11. Pain: c/u tylenol 12. Disp: 12-07-19 to home, progressing towards goals Allergies Coded Allergies: No Known Allergies (Verified Allergy, Unknown, 11/06/19) Vital Signs Vital Signs Date Time Temp Pulse Resp B/P (MAP) Pulse Ox O2 Delivery O2 Flow Rate FiO2 11/30/19 08:27 78 117/65 11/30/19 06:00 97.3 18 96 Room Air Microbiology Microbiology 11/29/19 Gram Stain - Final, Resulted 11/29/19 Bacterial Culture, Resulted Pending Current Medications Current Medications Current Medications Medications (Trade) Dose Ordered Sig/Cj Route PRN Reason Start Time Stop Time Status Last Admin Dose Admin Acetaminophen (Tylenol Tab) 650 mg Q4HP PRN PO fever/MILD PAIN 11/06/19 16:15 11/09/19 14:23 DC 11/07/19 08:35 Acetaminophen (Tylenol Tab) 1,000 mg TID PO 11/09/19 16:00 11/09/19 15:15 DC Acetaminophen (Tylenol Tab) 1,000 mg TID PO 11/09/19 16:00 11/30/19 08:26 Acetaminophen (Tylenol Tab) 1,000 mg TIDP PRN PO PAIN 11/09/19 16:00 11/09/19 15:38 DC Albuterol/ Ipratropium (Duoneb (Ipr 0.5mg/Alb 2.5mg)) 3 ml RTID NEB 11/06/19 20:00 11/10/19 16:35 DC 11/10/19 07:52 Albuterol/ Ipratropium (Duoneb (Ipr 0.5mg/Alb 2.5mg)) 3 ml RTID NEB 11/13/19 14:00 11/29/19 14:50 Albuterol/ Ipratropium (Duoneb (Ipr 0.5mg/Alb 2.5mg)) 3 ml RTID PRN NEB SHORTNESS OF BREATH 11/10/19 16:45 11/13/19 12:47 DC Aspirin (Ecotrin) 81 mg DAILY PO 11/07/19 09:00 11/30/19 08:26 Atorvastatin Calcium (Lipitor) 40 mg QHS PO 11/06/19 21:00 Cancel Atorvastatin Calcium (Lipitor) 80 mg QHS PO 11/06/19 21:00 11/29/19 21:33 Bacitracin (Bacitracin Oint) apply to the head of pe... BID TOP 11/21/19 09:00 11/27/19 10:54 DC 11/26/19 21:40 Dexamethasone (Decadron) 2 mg BID PO 11/16/19 21:00 11/20/19 12:00 DC 11/20/19 09:57 Dexamethasone (Decadron) 2 mg DAILY PO 11/21/19 09:00 11/24/19 09:01 DC 11/24/19 08:51 Dexamethasone (Decadron) 2 mg TID PO 11/12/19 21:00 11/12/19 18:21 DC Dexamethasone (Decadron) 2 mg TID PO 11/12/19 21:00 11/16/19 17:54 DC 11/16/19 16:21 Docusate Sodium (Colace) 100 mg BID PO 11/06/19 21:00 11/29/19 21:32 Escitalopram Oxalate (Lexapro) 20 mg QHS PO 11/09/19 21:00 11/12/19 14:03 DC 11/11/19 21:01 Fluoxetine HCl (PROzac) 20 mg QHS PO 11/12/19 21:00 11/29/19 21:33 Gabapentin (Neurontin) 300 mg TID PO 11/10/19 21:00 11/30/19 08:26 Home Med (Med Rec Complete!) ASDIRECTED XX 11/06/19 17:45 11/06/19 17:44 DC Hydrochlorothiazide (Hydrodiuril) 25 mg DAILY PO 11/07/19 09:00 11/30/19 08:26 Lidocaine HCl (Lidocaine 2% Urojet) APPLY TO CATHETER FOR P... ASDIRECTED PRN TOP FOR COMFORT 11/11/19 20:30 11/30/19 01:20 Lisinopril (Prinivil) 20 mg DAILY PO 11/16/19 09:00 11/30/19 08:27 Lisinopril (Prinivil) 40 mg DAILY PO 11/07/19 09:00 11/15/19 17:09 DC 11/15/19 09:22 Magnesium Hydroxide (Milk Of Magnesia) 30 ml DAILYPRN PRN PO CONSTIPATION 11/06/19 16:15 Menthol/Methyl Salicylate (Bengay Cream) APPLY TO LOW BACK TID TOP 11/29/19 09:00 11/30/19 08:27 Metoprolol Succinate (TopROL XL) 12.5 mg DAILY PO 11/19/19 09:00 11/30/19 08:27 Metoprolol Tartrate (Lopressor) 50 mg BID PO 11/06/19 21:00 11/07/19 09:48 DC 11/07/19 08:31 Metoprolol Tartrate (Lopressor) 50 mg BID PO 11/15/19 21:00 11/19/19 10:01 DC 11/18/19 20:56 Metoprolol Tartrate (Lopressor) 75 mg BID PO 11/07/19 21:00 11/15/19 17:09 DC 11/15/19 09:24 Miscellaneous (Unresolved Clarification Entry) SEE LABEL COMMENTS DAILY XX 11/06/19 09:00 11/07/19 09:55 DC 11/06/19 18:17 Nicotine (Nicoderm Cq 14mg) 1 patch DAILY TD 11/13/19 14:00 11/30/19 08:25 Nicotine (Nicoderm Cq 21mg) 1 patch DAILY TD 11/06/19 09:00 11/13/19 12:47 DC 11/13/19 08:49 Pantoprazole Sodium (Protonix) 40 mg DAILY PO 11/06/19 09:00 11/30/19 08:25 Senna (Senokot) 1 tab QHS PO 11/06/19 21:00 11/29/19 21:32 Tamsulosin HCl (Flomax) 0.8 mg QHS PO 11/06/19 21:00 11/29/19 21:33 Ticagrelor (Brilinta) 90 mg BID PO 11/06/19 21:00 11/30/19 08:27 Trazodone HCl (Desyrel) 25 mg DAILY@0000 PO 11/09/19 00:00 11/12/19 17:57 DC 11/12/19 00:14 Trazodone HCl (Desyrel) 25 mg DAILY@2200 PO 11/12/19 22:00 11/19/19 11:39 DC 11/18/19 20:56 Trazodone HCl (Desyrel) 25 mg QHSP PRN PO INSOMNIA 11/06/19 16:15 11/08/19 11:19 DC Trazodone HCl (Desyrel) 50 mg DAILY@0 PO 11/19/19 22:00 11/29/19 21:33 Triamcinolone Acetonide (Kenalog 0.025% Cream) apply to ventral uret... BID TOP 11/27/19 09:00 11/30/19 08:28 ANNE BENAVIDEZ MD Nov 30, 2019 10:43
--- NOTE | 2019-11-30 10:44 | IPNPDOC ---
PM&R Progress Note DATE OF SERVICE: Nov 30, 2019 [employer] Progress Note Subjective: Patient seen in his room reporting he is starting to self-cath on his own and is wondering if he will have return of bladder function. REVIEW OF SYSTEMS: The following is a completed review of systems and has been reviewed. Review of systems otherwise unremarkable. PAIN: Patient self reports no pain EYES: decreased vision on the left EARS, NOSE, & THROAT: +dysphagia (improving) CARDIOVASCULAR: Denies chest pain or palpitations PULMONARY: Denies shortness of breath, +cough (improving) GASTROINTESTINAL: Denies constipation/diarrhea GENITOURINARY: urinary retention (chronic) MUSCULOSKELETAL: left sided weakness NEUROLOGICAL:left sided paresis HEMATOLOGICAL: denies easy bruising SKIN: left toe ulcer PSYCHIATRIC: Unremarkable All other review of systems found to be negative. PHYSICAL EXAMINATION: VITAL SIGNS: Please see below. GENERAL: Pleasant and cooperative. No acute distress. HEENT: PERRL. Extraocular movements grossly intact Clear conjunctiva CARDIOVASCULAR: Regular rate and rhythm. No murmurs, rubs, or gallops LUNGS: CTA ABDOMEN: Soft, nontender, nondistended. Positive bowel sounds. Normal active bowel sounds NEUROLOGICAL: Alert and oriented times three. Cranial nerves II through XII grossly intact. Sensation to light touch groslyinact in all4 extremities, + extinction to touch on the left (+)left eye-brow sparing left facial droop (improving) (-) Babinksi bilat 1/4+ tone left elbow extensors EXTREMITIES: 5\\5 strength right upper extremities. Left UE 1/5 elbow flexors, 1/5 elbow extensors, 0/5 wrist extension, 0/5 rouge sifter 5/5 RLE, 3+/5 left hip flexion, knee extension, 4/5 ankle DF, EHL, and PF SKIN: left D1-D2 interdigit ulcer (dry) coccyx area erythematous, blanchable ASSESSMENT:63-year-old M with past medical history of HTN who presents status post stroke PLAN: 1.Rehab-PT advance gait training, trunk control, strengthen, stretch, maintain ROM bilat LE- e-stim prn, ambulating with assistance short distances with [facility] OT- advance ADL management, strengthen, stretch, maintain ROM bilat UE, e-stim prn, left shoulder stabilization, consider taping, sling during ambulation for shoulder protectin, consider trial of 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 Neuro: s/p right MCA infarct s/p TPA and ICA/MCA thrombectomy with stenting with right basal ganglia and willams radiata hemorrhagic conversion - patient with dysphagia and left sided paresis, -11-12-19 patient with new flaccid paresis of LUE and weaker LLE, concern for new infarct or hemorrhage- CTH and MRI negative for acute hemorrhage/conversion or new infarct, tapering decadron started and complete to treat edema seen on MRI in the are of the old basal ganglia hemorrhagic infarct with hope of motor return on left side -c/u ASA, Brillinta, BP control, and statin for secondary stroke prevention -will need neurology referral -f/u Dr Molina neurosurgeon upon d/c 3. Cardiac: hx HTN, c/u metoprolol changed to succinate 12.5 daily for soft BPs, c/u lisinopril, HCTZ- medicine consulted to assist in management, recent ECHO at [facility] not suggestive of systolic/diastolic CHF -HLD- c/u statin 4. Resp: hx of smoking with cough, c/u Duonebs standing, patient wheezing one exam has resolved, monitor for infection, encourage incentive spirometry -nicotine patch decreased dosing -hx of YAN but did not finish getting fitted for CPAP mask, c/u nocturnal 02, will need referral to pulmonology 5. Vasc: recent acute occlusion left superficial femoral artery, patient asymptomatic, will consider inhouse vascular consult prn 6. : hx of prostate cancer s/p prostatotomy- patient had self-caths about once a month at home, failed TOV- Cortes reinserted 11-16-19 and then removed 11-26-19 due to urethral erosion, urology consulted, recs greatly appreciated, will d/c bacitracin and start triamcinolone, will attempt to teach patient to self cath one-handed, adaptive equipment "HouseHold" has been ordered to assist with stabilizing patient's penis for self-cathing- if patient unable to perform self- cath per urology Cortes is not an option and will need supra-pubic cath -c/u FLomax 0.8 mg qhs 7. DVT ppx: Teds, Dopplers negative, avoiding chemoprophylaxis given recent hemorrhage 8. GI ppx: protonix 9. Psych: insomnia- c/u trazodone 50mg -c/u prozac 20mg qHS for motor recovery in stroke -hx of chronic ETOH use- c/u gabapentin 300 mg TID 10. Skin- c/u barrier cream to sacrum, optifoam ordered, and roho cushion for wheelchair usage to prevent skin breakdown 11. Pain: c/u tylenol 12. Disp: 12-07-19 to home, progressing towards goals Allergies Coded Allergies: No Known Allergies (Verified Allergy, Unknown, 11/06/19) Vital Signs Vital Signs Date Time Temp Pulse Resp B/P (MAP) Pulse Ox O2 Delivery O2 Flow Rate FiO2 11/30/19 08:27 78 117/65 11/30/19 06:00 97.3 18 96 Room Air Microbiology Microbiology 11/29/19 Gram Stain - Final, Resulted 11/29/19 Bacterial Culture, Resulted Pending Current Medications Current Medications Current Medications Medications (Trade) Dose Ordered Sig/Cj Route PRN Reason Start Time Stop Time Status Last Admin Dose Admin Acetaminophen (Tylenol Tab) 650 mg Q4HP PRN PO fever/MILD PAIN 11/06/19 16:15 11/09/19 14:23 DC 11/07/19 08:35 Acetaminophen (Tylenol Tab) 1,000 mg TID PO 11/09/19 16:00 11/09/19 15:15 DC Acetaminophen (Tylenol Tab) 1,000 mg TID PO 11/09/19 16:00 11/30/19 08:26 Acetaminophen (Tylenol Tab) 1,000 mg TIDP PRN PO PAIN 11/09/19 16:00 11/09/19 15:38 DC Albuterol/ Ipratropium (Duoneb (Ipr 0.5mg/Alb 2.5mg)) 3 ml RTID NEB 11/06/19 20:00 11/10/19 16:35 DC 11/10/19 07:52 Albuterol/ Ipratropium (Duoneb (Ipr 0.5mg/Alb 2.5mg)) 3 ml RTID NEB 11/13/19 14:00 11/29/19 14:50 Albuterol/ Ipratropium (Duoneb (Ipr 0.5mg/Alb 2.5mg)) 3 ml RTID PRN NEB SHORTNESS OF BREATH 11/10/19 16:45 11/13/19 12:47 DC Aspirin (Ecotrin) 81 mg DAILY PO 11/07/19 09:00 11/30/19 08:26 Atorvastatin Calcium (Lipitor) 40 mg QHS PO 11/06/19 21:00 Cancel Atorvastatin Calcium (Lipitor) 80 mg QHS PO 11/06/19 21:00 11/29/19 21:33 Bacitracin (Bacitracin Oint) apply to the head of pe... BID TOP 11/21/19 09:00 11/27/19 10:54 DC 11/26/19 21:40 Dexamethasone (Decadron) 2 mg BID PO 11/16/19 21:00 11/20/19 12:00 DC 11/20/19 09:57 Dexamethasone (Decadron) 2 mg DAILY PO 11/21/19 09:00 11/24/19 09:01 DC 11/24/19 08:51 Dexamethasone (Decadron) 2 mg TID PO 11/12/19 21:00 11/12/19 18:21 DC Dexamethasone (Decadron) 2 mg TID PO 11/12/19 21:00 11/16/19 17:54 DC 11/16/19 16:21 Docusate Sodium (Colace) 100 mg BID PO 11/06/19 21:00 11/29/19 21:32 Escitalopram Oxalate (Lexapro) 20 mg QHS PO 11/09/19 21:00 11/12/19 14:03 DC 11/11/19 21:01 Fluoxetine HCl (PROzac) 20 mg QHS PO 11/12/19 21:00 11/29/19 21:33 Gabapentin (Neurontin) 300 mg TID PO 11/10/19 21:00 11/30/19 08:26 Home Med (Med Rec Complete!) ASDIRECTED XX 11/06/19 17:45 11/06/19 17:44 DC Hydrochlorothiazide (Hydrodiuril) 25 mg DAILY PO 11/07/19 09:00 11/30/19 08:26 Lidocaine HCl (Lidocaine 2% Urojet) APPLY TO CATHETER FOR P... ASDIRECTED PRN TOP FOR COMFORT 11/11/19 20:30 11/30/19 01:20 Lisinopril (Prinivil) 20 mg DAILY PO 11/16/19 09:00 11/30/19 08:27 Lisinopril (Prinivil) 40 mg DAILY PO 11/07/19 09:00 11/15/19 17:09 DC 11/15/19 09:22 Magnesium Hydroxide (Milk Of Magnesia) 30 ml DAILYPRN PRN PO CONSTIPATION 11/06/19 16:15 Menthol/Methyl Salicylate (Bengay Cream) APPLY TO LOW BACK TID TOP 11/29/19 09:00 11/30/19 08:27 Metoprolol Succinate (TopROL XL) 12.5 mg DAILY PO 11/19/19 09:00 11/30/19 08:27 Metoprolol Tartrate (Lopressor) 50 mg BID PO 11/06/19 21:00 11/07/19 09:48 DC 11/07/19 08:31 Metoprolol Tartrate (Lopressor) 50 mg BID PO 11/15/19 21:00 11/19/19 10:01 DC 11/18/19 20:56 Metoprolol Tartrate (Lopressor) 75 mg BID PO 11/07/19 21:00 11/15/19 17:09 DC 11/15/19 09:24 Miscellaneous (Unresolved Clarification Entry) SEE LABEL COMMENTS DAILY XX 11/06/19 09:00 11/07/19 09:55 DC 11/06/19 18:17 Nicotine (Nicoderm Cq 14mg) 1 patch DAILY TD 11/13/19 14:00 11/30/19 08:25 Nicotine (Nicoderm Cq 21mg) 1 patch DAILY TD 11/06/19 09:00 11/13/19 12:47 DC 11/13/19 08:49 Pantoprazole Sodium (Protonix) 40 mg DAILY PO 11/06/19 09:00 11/30/19 08:25 Senna (Senokot) 1 tab QHS PO 11/06/19 21:00 11/29/19 21:32 Tamsulosin HCl (Flomax) 0.8 mg QHS PO 11/06/19 21:00 11/29/19 21:33 Ticagrelor (Brilinta) 90 mg BID PO 11/06/19 21:00 11/30/19 08:27 Trazodone HCl (Desyrel) 25 mg DAILY@0000 PO 11/09/19 00:00 11/12/19 17:57 DC 11/12/19 00:14 Trazodone HCl (Desyrel) 25 mg DAILY@2200 PO 11/12/19 22:00 11/19/19 11:39 DC 11/18/19 20:56 Trazodone HCl (Desyrel) 25 mg QHSP PRN PO INSOMNIA 11/06/19 16:15 11/08/19 11:19 DC Trazodone HCl (Desyrel) 50 mg DAILY@0 PO 11/19/19 22:00 11/29/19 21:33 Triamcinolone Acetonide (Kenalog 0.025% Cream) apply to ventral uret... BID TOP 11/27/19 09:00 11/30/19 08:28 ANNE BENAVIDEZ MD Nov 30, 2019 10:44
--- NOTE | 2019-11-30 10:47 | IPNPDOC ---
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 REVIEW OF SYSTEMS: The following is a completed review of systems and has been reviewed. Review of systems otherwise unremarkable. PAIN: Patient self reports no pain EYES: decreased vision on the left EARS, NOSE, & THROAT: +dysphagia (improving) CARDIOVASCULAR: Denies chest pain or palpitations PULMONARY: Denies shortness of breath, +cough (improving) GASTROINTESTINAL: Denies constipation/diarrhea GENITOURINARY: urinary retention (chronic) MUSCULOSKELETAL: left sided weakness NEUROLOGICAL:left sided paresis HEMATOLOGICAL: denies easy bruising SKIN: left toe ulcer PSYCHIATRIC: Unremarkable All other review of systems found to be negative. PHYSICAL EXAMINATION: VITAL SIGNS: Please see below. GENERAL: Pleasant and cooperative. No acute distress. HEENT: PERRL. Extraocular movements grossly intact Clear conjunctiva CARDIOVASCULAR: Regular rate and rhythm. No murmurs, rubs, or gallops LUNGS: CTA ABDOMEN: Soft, nontender, nondistended. Positive bowel sounds. Normal active bowel sounds NEUROLOGICAL: Alert and oriented times three. Cranial nerves II through XII grossly intact. Sensation to light touch groslyinact in all4 extremities, + extinction to touch on the left (+)left eye-brow sparing left facial droop (improving) (-) Babinksi bilat 1/4+ tone left elbow extensors EXTREMITIES: 5\\5 strength right upper extremities. 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 5/5 RLE, 3+/5 left hip flexion, knee extension, 4/5 ankle DF, EHL, and PF SKIN: left D1-D2 interdigit ulcer (dry) coccyx area erythematous, blanchable ASSESSMENT:63-year-old M with past medical history of HTN who presents status post stroke PLAN: 1.Rehab-PT advance gait training, trunk control, strengthen, stretch, maintain ROM bilat LE- e-stim prn, ambulating with assistance short distances with [facility] OT- advance ADL management, strengthen, stretch, maintain ROM bilat UE, e-stim prn, left shoulder stabilization, consider taping, sling during ambulation for shoulder protectin, consider trial of mirror therapy for left arm 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 Neuro: s/p right MCA infarct s/p TPA and ICA/MCA thrombectomy with stenting with right basal ganglia and willams radiata hemorrhagic conversion - patient with dysphagia and left sided paresis, -11-12-19 patient with new flaccid paresis of LUE and weaker LLE, concern for new infarct or hemorrhage- CTH and MRI negative for acute hemorrhage/conversion or new infarct, tapering decadron started and complete to treat edema seen on MRI in the are of the old basal ganglia hemorrhagic infarct with hope of motor return on left side -c/u ASA, Brillinta, BP control, and statin for secondary stroke prevention -will need neurology referral -f/u Dr Molina neurosurgeon upon d/c 3. Cardiac: hx HTN, c/u metoprolol changed to succinate 12.5 daily for soft BPs, c/u lisinopril, HCTZ- medicine consulted to assist in management, recent ECHO at [facility] not suggestive of systolic/diastolic CHF -HLD- c/u statin 4. Resp: hx of smoking with cough, c/u Duonebs standing, patient wheezing one exam has resolved, monitor for infection, encourage incentive spirometry -nicotine patch decreased dosing -hx of YAN but did not finish getting fitted for CPAP mask, c/u nocturnal 02, will need referral to pulmonology 5. Vasc: recent acute occlusion left superficial femoral artery, patient asymptomatic, will consider inhouse vascular consult prn 6. : hx of prostate cancer s/p prostatotomy- patient had self-caths about once a month at home, failed TOV- Cortes reinserted 11-16-19 and then removed 11-26-19 due to urethral erosion, urology consulted, recs greatly appreciated, will d/c bacitracin and start triamcinolone, will attempt to teach patient to self cath one-handed, adaptive equipment "HouseHold" has arrived, nursing instructed to encourage patient to use this for self-cath -per urology Cortes is not an option and will need supra-pubic cath -c/u FLomax 0.8 mg qhs 7. DVT ppx: Teds, Dopplers negative, avoiding chemoprophylaxis given recent hemorrhage 8. GI ppx: protonix 9. Psych: insomnia- c/u trazodone 50mg -c/u prozac 20mg qHS for motor recovery in stroke -hx of chronic ETOH use- c/u gabapentin 300 mg TID 10. Skin- c/u barrier cream to sacrum, optifoam ordered, and roho cushion for wheelchair usage to prevent skin breakdown 11. Pain: c/u tylenol 12. Disp: 12-07-19 to home, progressing towards goals Allergies Coded Allergies: No Known Allergies (Verified Allergy, Unknown, 11/06/19) Vital Signs Vital Signs Date Time Temp Pulse Resp B/P (MAP) Pulse Ox O2 Delivery O2 Flow Rate FiO2 11/30/19 08:27 78 117/65 11/30/19 06:00 97.3 18 96 Room Air Microbiology Microbiology 11/29/19 Gram Stain - Final, Resulted 11/29/19 Bacterial Culture, Resulted Pending Current Medications Current Medications Current Medications Medications (Trade) Dose Ordered Sig/Cj Route PRN Reason Start Time Stop Time Status Last Admin Dose Admin Acetaminophen (Tylenol Tab) 650 mg Q4HP PRN PO fever/MILD PAIN 11/06/19 16:15 11/09/19 14:23 DC 11/07/19 08:35 Acetaminophen (Tylenol Tab) 1,000 mg TID PO 11/09/19 16:00 11/09/19 15:15 DC Acetaminophen (Tylenol Tab) 1,000 mg TID PO 11/09/19 16:00 11/30/19 08:26 Acetaminophen (Tylenol Tab) 1,000 mg TIDP PRN PO PAIN 11/09/19 16:00 11/09/19 15:38 DC Albuterol/ Ipratropium (Duoneb (Ipr 0.5mg/Alb 2.5mg)) 3 ml RTID NEB 11/06/19 20:00 11/10/19 16:35 DC 11/10/19 07:52 Albuterol/ Ipratropium (Duoneb (Ipr 0.5mg/Alb 2.5mg)) 3 ml RTID NEB 11/13/19 14:00 11/29/19 14:50 Albuterol/ Ipratropium (Duoneb (Ipr 0.5mg/Alb 2.5mg)) 3 ml RTID PRN NEB SHORTNESS OF BREATH 11/10/19 16:45 11/13/19 12:47 DC Aspirin (Ecotrin) 81 mg DAILY PO 11/07/19 09:00 11/30/19 08:26 Atorvastatin Calcium (Lipitor) 40 mg QHS PO 11/06/19 21:00 Cancel Atorvastatin Calcium (Lipitor) 80 mg QHS PO 11/06/19 21:00 11/29/19 21:33 Bacitracin (Bacitracin Oint) apply to the head of pe... BID TOP 11/21/19 09:00 11/27/19 10:54 DC 11/26/19 21:40 Dexamethasone (Decadron) 2 mg BID PO 11/16/19 21:00 11/20/19 12:00 DC 11/20/19 09:57 Dexamethasone (Decadron) 2 mg DAILY PO 11/21/19 09:00 11/24/19 09:01 DC 11/24/19 08:51 Dexamethasone (Decadron) 2 mg TID PO 11/12/19 21:00 11/12/19 18:21 DC Dexamethasone (Decadron) 2 mg TID PO 11/12/19 21:00 11/16/19 17:54 DC 11/16/19 16:21 Docusate Sodium (Colace) 100 mg BID PO 11/06/19 21:00 11/29/19 21:32 Escitalopram Oxalate (Lexapro) 20 mg QHS PO 11/09/19 21:00 11/12/19 14:03 DC 11/11/19 21:01 Fluoxetine HCl (PROzac) 20 mg QHS PO 11/12/19 21:00 11/29/19 21:33 Gabapentin (Neurontin) 300 mg TID PO 11/10/19 21:00 11/30/19 08:26 Home Med (Med Rec Complete!) ASDIRECTED XX 11/06/19 17:45 11/06/19 17:44 DC Hydrochlorothiazide (Hydrodiuril) 25 mg DAILY PO 11/07/19 09:00 11/30/19 08:26 Lidocaine HCl (Lidocaine 2% Urojet) APPLY TO CATHETER FOR P... ASDIRECTED PRN TOP FOR COMFORT 11/11/19 20:30 11/30/19 01:20 Lisinopril (Prinivil) 20 mg DAILY PO 11/16/19 09:00 11/30/19 08:27 Lisinopril (Prinivil) 40 mg DAILY PO 11/07/19 09:00 11/15/19 17:09 DC 11/15/19 09:22 Magnesium Hydroxide (Milk Of Magnesia) 30 ml DAILYPRN PRN PO CONSTIPATION 11/06/19 16:15 Menthol/Methyl Salicylate (Bengay Cream) APPLY TO LOW BACK TID TOP 11/29/19 09:00 11/30/19 08:27 Metoprolol Succinate (TopROL XL) 12.5 mg DAILY PO 11/19/19 09:00 11/30/19 08:27 Metoprolol Tartrate (Lopressor) 50 mg BID PO 11/06/19 21:00 11/07/19 09:48 DC 11/07/19 08:31 Metoprolol Tartrate (Lopressor) 50 mg BID PO 11/15/19 21:00 11/19/19 10:01 DC 11/18/19 20:56 Metoprolol Tartrate (Lopressor) 75 mg BID PO 11/07/19 21:00 11/15/19 17:09 DC 11/15/19 09:24 Miscellaneous (Unresolved Clarification Entry) SEE LABEL COMMENTS DAILY XX 11/06/19 09:00 11/07/19 09:55 DC 11/06/19 18:17 Nicotine (Nicoderm Cq 14mg) 1 patch DAILY TD 11/13/19 14:00 11/30/19 08:25 Nicotine (Nicoderm Cq 21mg) 1 patch DAILY TD 11/06/19 09:00 11/13/19 12:47 DC 11/13/19 08:49 Pantoprazole Sodium (Protonix) 40 mg DAILY PO 11/06/19 09:00 11/30/19 08:25 Senna (Senokot) 1 tab QHS PO 11/06/19 21:00 11/29/19 21:32 Tamsulosin HCl (Flomax) 0.8 mg QHS PO 11/06/19 21:00 11/29/19 21:33 Ticagrelor (Brilinta) 90 mg BID PO 11/06/19 21:00 11/30/19 08:27 Trazodone HCl (Desyrel) 25 mg DAILY@0000 PO 11/09/19 00:00 11/12/19 17:57 DC 11/12/19 00:14 Trazodone HCl (Desyrel) 25 mg DAILY@2200 PO 11/12/19 22:00 11/19/19 11:39 DC 11/18/19 20:56 Trazodone HCl (Desyrel) 25 mg QHSP PRN PO INSOMNIA 11/06/19 16:15 11/08/19 11:19 DC Trazodone HCl (Desyrel) 50 mg DAILY@2200 PO 11/19/19 22:00 11/29/19 21:33 Triamcinolone Acetonide (Kenalog 0.025% Cream) apply to ventral uret... BID TOP 11/27/19 09:00 11/30/19 08:28 ANNE BENAVIDEZ MD Nov 30, 2019 10:47
[2019-11-30 14:00] VITALS: BP 105/75
[2019-11-30 20:00] VITALS: BP 113/67
[2019-11-30] MEDS: ATORVASTATIN 20 MG TAB PO SCH (20:33)
[2019-11-30] MEDS: SENNA 8.6 MG TAB (SENOKOT) PO SCH (20:33)
[2019-11-30] MEDS: FLUoxetine 20 MG CAP PO SCH (20:33)
[2019-11-30] MEDS: TAMSULOSIN 0.4 MG CAP PO SCH (20:34)
[2019-11-30] MEDS: traZODone 50 MG TAB PO SCH (20:34)
[2019-12-01 06:00] VITALS: BP 125/72
[2019-12-01] MEDS: IPRATROPIUM 0.5MG/ALBUTEROL 2.5MG INH SOL UD 3ML (DUONEB)(J7620) NEB SCH ×2 (08:00→14:00)
[2019-12-01] MEDS: NICOTINE 14 MG/24 HR TRANSDERMAL TD SCH (08:18)
[2019-12-01] MEDS: ASPIRIN 81 MG ENTERIC TAB PO SCH (08:18)
[2019-12-01] MEDS: hydroCHLOROthiazide 25 MG TAB PO SCH (08:18)
[2019-12-01] MEDS: PANTOPRAZOLE 40MG TAB (PROTONIX) PO SCH (08:18)
[2019-12-01] MEDS: METOPROLOL SUCC *XL* 12.5MG PER 1/2 TAB (TopROL *XL*) PO SCH (08:19)
[2019-12-01] MEDS: lisinopriL 20 MG TAB PO SCH (08:19)
[2019-12-01] MEDS: DOCUSATE SODIUM 100 MG CAP PO SCH ×2 (08:19→20:04)
[2019-12-01] MEDS: TICAGRELOR 90 MG TABLET (BRILINTA) PO SCH ×2 (08:19→20:22)
[2019-12-01] MEDS: GABAPENTIN 300 MG CAP PO SCH ×3 (08:19→20:22)
[2019-12-01] MEDS: ACETAMINOPHEN 500 MG TAB PO SCH ×3 (08:20→22:12)
[2019-12-01] MEDS: ANALGESIC BALM CRM 120 GM TOP SCH ×3 (08:21→20:23)
[2019-12-01] MEDS: REMEDY PHYTOPLEX Z-GUARD PASTE 113GM TUBE (FROM STOREROOM PRODUCT) TOP SCH ×3 (08:22→20:23)
[2019-12-01] MEDS: TRIAMCINOLONE ACETONIDE 0.025 % 80 GM CREAM TOP SCH ×2 (08:23→20:23)
[2019-12-01 14:00] VITALS: BP 106/66
[2019-12-01] MEDS: BACTRIM 160MG/800MG DS TAB PO SCH ×2 (16:44→22:11)
[2019-12-01 20:00] VITALS: BP 108/64
[2019-12-01] MEDS: SENNA 8.6 MG TAB (SENOKOT) PO SCH (20:03)
[2019-12-01] MEDS: ATORVASTATIN 20 MG TAB PO SCH (20:22)
[2019-12-01] MEDS: TAMSULOSIN 0.4 MG CAP PO SCH (20:22)
[2019-12-01] MEDS: FLUoxetine 20 MG CAP PO SCH (20:22)
[2019-12-01] MEDS: traZODone 50 MG TAB PO SCH (22:11)
[2019-12-02] MEDS: LIDOCAINE 2% 5ML JELLY UROJET TOP PRN (00:11)
[2019-12-02 06:00] VITALS: BP 138/83
[2019-12-02] MEDS: IPRATROPIUM 0.5MG/ALBUTEROL 2.5MG INH SOL UD 3ML (DUONEB)(J7620) NEB SCH ×3 (08:00→19:24)
[2019-12-02] MEDS: TRIAMCINOLONE ACETONIDE 0.025 % 80 GM CREAM TOP SCH ×2 (09:00→21:08)
[2019-12-02] MEDS: REMEDY PHYTOPLEX Z-GUARD PASTE 113GM TUBE (FROM STOREROOM PRODUCT) TOP SCH ×3 (09:00→21:00)
[2019-12-02] MEDS: DOCUSATE SODIUM 100 MG CAP PO SCH ×2 (09:00→20:51)
[2019-12-02] MEDS: BACTRIM 160MG/800MG DS TAB PO SCH ×2 (11:03→21:03)
[2019-12-02] MEDS: GABAPENTIN 300 MG CAP PO SCH ×3 (11:03→21:04)
[2019-12-02] MEDS: TICAGRELOR 90 MG TABLET (BRILINTA) PO SCH ×2 (11:03→21:04)
[2019-12-02] MEDS: ASPIRIN 81 MG ENTERIC TAB PO SCH (11:03)
[2019-12-02] MEDS: hydroCHLOROthiazide 25 MG TAB PO SCH (11:05)
[2019-12-02] MEDS: METOPROLOL SUCC *XL* 12.5MG PER 1/2 TAB (TopROL *XL*) PO SCH (11:05)
[2019-12-02] MEDS: PANTOPRAZOLE 40MG TAB (PROTONIX) PO SCH (11:05)
[2019-12-02] MEDS: lisinopriL 20 MG TAB PO SCH (11:06)
[2019-12-02] MEDS: ACETAMINOPHEN 500 MG TAB PO SCH ×3 (11:07→21:04)
[2019-12-02] MEDS: NICOTINE 14 MG/24 HR TRANSDERMAL TD SCH (11:07)
[2019-12-02] MEDS: ANALGESIC BALM CRM 120 GM TOP SCH ×3 (11:07→21:08)
[2019-12-02 14:00] VITALS: BP 111/75
[2019-12-02 20:00] VITALS: BP 118/61
[2019-12-02] MEDS: SENNA 8.6 MG TAB (SENOKOT) PO SCH (20:51)
[2019-12-02] MEDS: FLUoxetine 20 MG CAP PO SCH (21:04)
[2019-12-02] MEDS: traZODone 50 MG TAB PO SCH (21:04)
[2019-12-02] MEDS: ATORVASTATIN 20 MG TAB PO SCH (21:04)
[2019-12-02] MEDS: TAMSULOSIN 0.4 MG CAP PO SCH (21:04)
[2019-12-03 06:00] VITALS: BP 114/65
[2019-12-03 06:30] LABS: BASO % 0.6 % (0.0-1.0); EOS # 0.3 10^3/uL (0.0-0.5); HEMATOCRIT 45.4 % (42.0-52.0); HEMOGLOBIN 15.3 g/dl (13.5-17.5); LYMPH # 1.5 10^3/uL (1.5-5.0); LYMPH % 21.3 % (24.0-44.0); MEAN CORPUSCULAR HEMOGLOBIN 33.6 pg (27.0-33.0); MEAN CORPUSCULAR HGB CONC 33.7 g/dl (32.0-36.5); MEAN CORPUSCULAR VOLUME 99.8 fl (80.0-96.0); MONO # 0.6 10^3/uL (0.0-0.8); MONO % 8.9 % (0.0-5.0); NEUTROPHILS # 4.4 10^3/uL (1.5-8.5); NEUTROPHILS % 63.9 % (36.0-66.0); PLATELET COUNT, AUTOMATED 200 10^3/uL (150-450); RED BLOOD COUNT 4.55 10^6/uL (4.30-6.10); WHITE BLOOD COUNT 6.8 10^3/uL (4.0-10.0)
[2019-12-03 06:59] LABS: BLOOD UREA NITROGEN 14 MG/DL (7-18); CALCIUM LEVEL 8.8 MG/DL (8.8-10.2); CARBON DIOXIDE LEVEL 27 MEQ/L (21-32); CHLORIDE LEVEL 105 MEQ/L (98-107); CREATININE FOR GFR 0.78 MG/DL (0.70-1.30); GLOMERULAR FILTRATION RATE > 60.0 (>49); GLUCOSE, FASTING 92 MG/DL (70-100); POTASSIUM SERUM 3.7 MEQ/L (3.5-5.1); SODIUM LEVEL 140 MEQ/L (136-145)
[2019-12-03] MEDS: PANTOPRAZOLE 40MG TAB (PROTONIX) PO SCH (07:57)
[2019-12-03] MEDS: METOPROLOL SUCC *XL* 12.5MG PER 1/2 TAB (TopROL *XL*) PO SCH (07:58)
[2019-12-03] MEDS: TICAGRELOR 90 MG TABLET (BRILINTA) PO SCH ×2 (07:58→20:17)
[2019-12-03] MEDS: NICOTINE 14 MG/24 HR TRANSDERMAL TD SCH (07:58)
[2019-12-03] MEDS: ASPIRIN 81 MG ENTERIC TAB PO SCH (07:58)
[2019-12-03] MEDS: BACTRIM 160MG/800MG DS TAB PO SCH ×2 (07:59→20:17)
[2019-12-03] MEDS: lisinopriL 20 MG TAB PO SCH (07:59)
[2019-12-03] MEDS: ACETAMINOPHEN 500 MG TAB PO SCH ×3 (07:59→20:17)
[2019-12-03 08:00] VITALS: BP 103/61
[2019-12-03] MEDS: DOCUSATE SODIUM 100 MG CAP PO SCH ×2 (08:00→20:18)
[2019-12-03] MEDS: GABAPENTIN 300 MG CAP PO SCH ×3 (08:00→20:18)
[2019-12-03] MEDS: hydroCHLOROthiazide 25 MG TAB PO SCH (08:00)
[2019-12-03] MEDS: IPRATROPIUM 0.5MG/ALBUTEROL 2.5MG INH SOL UD 3ML (DUONEB)(J7620) NEB SCH ×3 (08:00→19:57)
[2019-12-03] MEDS: REMEDY PHYTOPLEX Z-GUARD PASTE 113GM TUBE (FROM STOREROOM PRODUCT) TOP SCH ×3 (08:01→20:20)
[2019-12-03] MEDS: TRIAMCINOLONE ACETONIDE 0.025 % 80 GM CREAM TOP SCH ×2 (08:01→20:20)
[2019-12-03] MEDS: ANALGESIC BALM CRM 120 GM TOP SCH ×3 (08:01→20:19)
--- NOTE | 2019-12-03 11:34 | IPNPDOC ---
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 He reports his left arm will move involuntarily at times. REVIEW OF SYSTEMS: The following is a completed review of systems and has been reviewed. Review of systems otherwise unremarkable. PAIN: Patient self reports no pain EYES: decreased vision on the left EARS, NOSE, & THROAT: +dysphagia (improving) CARDIOVASCULAR: Denies chest pain or palpitations PULMONARY: Denies shortness of breath, +cough (improving) GASTROINTESTINAL: Denies constipation/diarrhea GENITOURINARY: urinary retention (chronic) MUSCULOSKELETAL: left sided weakness NEUROLOGICAL:left sided paresis HEMATOLOGICAL: denies easy bruising SKIN: left toe ulcer PSYCHIATRIC: Unremarkable All other review of systems found to be negative. PHYSICAL EXAMINATION: VITAL SIGNS: Please see below. GENERAL: Pleasant and cooperative. No acute distress. HEENT: PERRL. Extraocular movements grossly intact Clear conjunctiva CARDIOVASCULAR: Regular rate and rhythm. No murmurs, rubs, or gallops LUNGS: CTA ABDOMEN: Soft, nontender, nondistended. Positive bowel sounds. Normal active bowel sounds NEUROLOGICAL: Alert and oriented times three. Cranial nerves II through XII grossly intact. Sensation to light touch grossly intact in all 4 extremities, + extinction to touch on the left (+)left eye-brow sparing left facial droop (improving) (-) Babinksi bilat 0/4+ tone left elbow extensors EXTREMITIES: 5\\5 strength right upper extremities. 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 clerk (patient noted to flex his left elbow ant-gravity while yawning) 5/5 RLE, 3+/5 left hip flexion, knee extension, 4/5 ankle DF, EHL, and PF SKIN: left D1-D2 interdigit ulcer (dry) coccyx area erythematous, blanchable ASSESSMENT:63-year-old M with past medical history of HTN who presents status post stroke PLAN: 1.Rehab-PT advance gait training, trunk control, strengthen, stretch, maintain ROM bilat LE- e-stim prn, ambulating with assistance short distances with [facility] OT- advance ADL management, strengthen, stretch, maintain ROM bilat UE, e-stim prn, left shoulder stabilization, consider taping, sling during ambulation for shoulder protectin, consider trial of mirror therapy for left arm 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 Cardiac: hx HTN, c/u metoprolol changed to succinate 12.5 daily for soft BPs, c/u lisinopril, HCTZ- medicine consulted to assist in management, recent ECHO at [facility] not suggestive of systolic/diastolic CHF -HLD- c/u statin 4. Resp: hx of smoking with cough, c/u Duonebs standing, patient wheezing one exam has resolved, monitor for infection, encourage incentive spirometry -nicotine patch decreased dosing -hx of YAN but did not finish getting fitted for CPAP mask, c/u nocturnal 02, will need referral to pulmonology 5. Vasc: recent acute occlusion left superficial femoral artery, patient as ymptomatic, will consider inhouse vascular consult prn 6. : hx of prostate cancer s/p radiation therapy with urethral stricture- patient had self-caths about once a month at home, failed TOV- Cortes reinserted 11-16-19 and then removed 11-26-19 due to urethral meatus erosion, urology consulted, recs greatly appreciated, c/u triamcinolone, will attempt to teach patient to self cath one-handed, adaptive equipment "HouseHold" has arrived, nursing instructed to encourage patient to use this for self-cath -per urology Cortes is not an option and will need supra-pubic cath -c/u FLomax 0.8 mg qhs -patient started on Bactrim for 14 day total for Klebsiella pneumonia urethral discharge, concern for degree of prostatitis-will need urology f/u 7. DVT ppx: Teds, Dopplers negative, avoiding chemoprophylaxis given recent hemorrhage 8. GI ppx: protonix 9. Psych: insomnia- c/u trazodone 50mg -c/u prozac 20mg qHS for motor recovery in stroke -hx of chronic ETOH use- c/u gabapentin 300 mg TID 10. Skin- c/u barrier cream to sacrum, optifoam ordered, and roho cushion for wheelchair usage to prevent skin breakdown 11. Pain: c/u tylenol 12. Disp: 12-07-19 to home, progressing towards goals DME: Patient is wheelchair bound at this time and unable to complete his MRADLs in a timely or safe way without one. His home is wheelchair accessible, he is agreeable to using one and his family is able to help him use it. Having a wheelchair will help him complete his MRADLs. Allergies Coded Allergies: No Known Allergies (Verified Allergy, Unknown, 11/06/19) Vital Signs Vital Signs Date Time Temp Pulse Resp B/P (MAP) Pulse Ox O2 Delivery O2 Flow Rate FiO2 12/03/19 08:00 103/61 (75) 12/03/19 07:58 101 12/03/19 06:00 98.8 19 96 Room Air Laboratory Data CBC/BMP Laboratory Tests 12/03/19 06:10 Labs 24H Laboratory Tests 2 12/03/19 06:10: Immature Granulocyte % (Auto) 0.3, Neutrophils (%) (Auto) 63.9, Lymphocytes (%) (Auto) 21.3L, Monocytes (%) (Auto) 8.9H, Eosinophils (%) (Auto) 5.0H, Basophils (%) (Auto) 0.6, Neutrophils # (Auto) 4.4, Lymphocytes # (Auto) 1.5, Monocytes # (Auto) 0.6, Eosinophils # (Auto) 0.3, Basophils # (Auto) 0.0, Nucleated Red Blood Cells % (auto) 0.0, Anion Gap 8, Glomerular Filtration Rate > 60.0, Calcium Level 8.8 Microbiology Microbiology 11/29/19 Gram Stain - Final, Complete 11/29/19 Bacterial Culture - Final, Complete Klebsiella Pneumoniae Current Medications Current Medications Current Medications Medications (Trade) Dose Ordered Sig/Cj Route PRN Reason Start Time Stop Time Status Last Admin Dose Admin Acetaminophen (Tylenol Tab) 650 mg Q4HP PRN PO fever/MILD PAIN 11/06/19 16:15 11/09/19 14:23 DC 11/07/19 08:35 Acetaminophen (Tylenol Tab) 1,000 mg TID PO 11/09/19 16:00 11/09/19 15:15 DC Acetaminophen (Tylenol Tab) 1,000 mg TID PO 11/09/19 16:00 12/03/19 07:59 Acetaminophen (Tylenol Tab) 1,000 mg TIDP PRN PO PAIN 11/09/19 16:00 11/09/19 15:38 DC Albuterol/ Ipratropium (Duoneb (Ipr 0.5mg/Alb 2.5mg)) 3 ml RTID NEB 11/06/19 20:00 11/10/19 16:35 DC 11/10/19 07:52 Albuterol/ Ipratropium (Duoneb (Ipr 0.5mg/Alb 2.5mg)) 3 ml RTID NEB 11/13/19 14:00 11/29/19 14:50 Albuterol/ Ipratropium (Duoneb (Ipr 0.5mg/Alb 2.5mg)) 3 ml RTID PRN NEB SHORTNESS OF BREATH 11/10/19 16:45 11/13/19 12:47 DC Aspirin (Ecotrin) 81 mg DAILY PO 11/07/19 09:00 12/03/19 07:58 Atorvastatin Calcium (Lipitor) 40 mg QHS PO 11/06/19 21:00 Cancel Atorvastatin Calcium (Lipitor) 80 mg QHS PO 11/06/19 21:00 12/02/19 21:04 Bacitracin (Bacitracin Oint) apply to the head of pe... BID TOP 11/21/19 09:00 11/27/19 10:54 DC 11/26/19 21:40 Dexamethasone (Decadron) 2 mg BID PO 11/16/19 21:00 11/20/19 12:00 DC 11/20/19 09:57 Dexamethasone (Decadron) 2 mg DAILY PO 11/21/19 09:00 11/24/19 09:01 DC 11/24/19 08:51 Dexamethasone (Decadron) 2 mg TID PO 11/12/19 21:00 11/12/19 18:21 DC Dexamethasone (Decadron) 2 mg TID PO 11/12/19 21:00 11/16/19 17:54 DC 11/16/19 16:21 Docusate Sodium (Colace) 100 mg BID PO 11/06/19 21:00 12/01/19 08:19 Escitalopram Oxalate (Lexapro) 20 mg QHS PO 11/09/19 21:00 11/12/19 14:03 DC 11/11/19 21:01 Fluoxetine HCl (PROzac) 20 mg QHS PO 11/12/19 21:00 12/02/19 21:04 Gabapentin (Neurontin) 300 mg TID PO 11/10/19 21:00 12/03/19 08:00 Home Med (Med Rec Complete!) ASDIRECTED XX 11/06/19 17:45 11/06/19 17:44 DC Hydrochlorothiazide (Hydrodiuril) 25 mg DAILY PO 11/07/19 09:00 12/02/19 11:05 Lidocaine HCl (Lidocaine 2% Urojet) APPLY TO CATHETER FOR P... ASDIRECTED PRN TOP FOR COMFORT 11/11/19 20:30 12/02/19 00:11 Lisinopril (Prinivil) 20 mg DAILY PO 11/16/19 09:00 12/02/19 11:06 Lisinopril (Prinivil) 40 mg DAILY PO 11/07/19 09:00 11/15/19 17:09 DC 11/15/19 09:22 Magnesium Hydroxide (Milk Of Magnesia) 30 ml DAILYPRN PRN PO CONSTIPATION 11/06/19 16:15 Menthol/Methyl Salicylate (Bengay Cream) APPLY TO LOW BACK TID TOP 11/29/19 09:00 12/03/19 08:01 Metoprolol Succinate (TopROL XL) 12.5 mg DAILY PO 11/19/19 09:00 12/02/19 11:05 Metoprolol Tartrate (Lopressor) 50 mg BID PO 11/06/19 21:00 11/07/19 09:48 DC 11/07/19 08:31 Metoprolol Tartrate (Lopressor) 50 mg BID PO 11/15/19 21:00 11/19/19 10:01 DC 11/18/19 20:56 Metoprolol Tartrate (Lopressor) 75 mg BID PO 11/07/19 21:00 11/15/19 17:09 DC 11/15/19 09:24 Miscellaneous (Unresolved Clarification Entry) SEE LABEL COMMENTS DAILY XX 11/06/19 09:00 11/07/19 09:55 DC 11/06/19 18:17 Nicotine (Nicoderm Cq 14mg) 1 patch DAILY TD 11/13/19 14:00 12/03/19 07:58 Nicotine (Nicoderm Cq 21mg) 1 patch DAILY TD 11/06/19 09:00 11/13/19 12:47 DC 11/13/19 08:49 Pantoprazole Sodium (Protonix) 40 mg DAILY PO 11/06/19 09:00 12/03/19 07:57 Senna (Senokot) 1 tab QHS PO 11/06/19 21:00 11/30/19 20:33 Tamsulosin HCl (Flomax) 0.8 mg QHS PO 11/06/19 21:00 12/02/19 21:04 Ticagrelor (Brilinta) 90 mg BID PO 11/06/19 21:00 12/03/19 07:58 Trazodone HCl (Desyrel) 25 mg DAILY@0000 PO 11/09/19 00:00 11/12/19 17:57 DC 11/12/19 00:14 Trazodone HCl (Desyrel) 25 mg DAILY@2200 PO 11/12/19 22:00 11/19/19 11:39 DC 11/18/19 20:56 Trazodone HCl (Desyrel) 25 mg QHSP PRN PO INSOMNIA 11/06/19 16:15 11/08/19 11:19 DC Trazodone HCl (Desyrel) 50 mg DAILY@2200 PO 11/19/19 22:00 12/02/19 21:04 Triamcinolone Acetonide (Kenalog 0.025% Cream) apply to ventral uret... BID TOP 11/27/19 09:00 12/03/19 08:01 Trimethoprim/ Sulfamethoxazole (Bactrim Ds, Septra Ds 160mg/ 800mg) 1 tab BID PO 12/01/19 09:00 12/14/19 21:01 12/03/19 07:59 ANNE BENAVIDEZ MD Dec 03, 2019 11:34
[2019-12-03 14:00] VITALS: BP 121/72
[2019-12-03 20:00] VITALS: BP 109/67
[2019-12-03] MEDS: FLUoxetine 20 MG CAP PO SCH (20:17)
[2019-12-03] MEDS: ATORVASTATIN 20 MG TAB PO SCH (20:17)
[2019-12-03] MEDS: TAMSULOSIN 0.4 MG CAP PO SCH (20:17)
[2019-12-03] MEDS: SENNA 8.6 MG TAB (SENOKOT) PO SCH (20:18)
[2019-12-03] MEDS: traZODone 50 MG TAB PO SCH (20:18)
[2019-12-04 06:00] VITALS: BP 119/71
[2019-12-04] MEDS: NICOTINE 14 MG/24 HR TRANSDERMAL TD SCH (07:48)
[2019-12-04] MEDS: PANTOPRAZOLE 40MG TAB (PROTONIX) PO SCH (07:49)
[2019-12-04] MEDS: hydroCHLOROthiazide 25 MG TAB PO SCH (07:49)
[2019-12-04] MEDS: ASPIRIN 81 MG ENTERIC TAB PO SCH (07:49)
[2019-12-04] MEDS: TICAGRELOR 90 MG TABLET (BRILINTA) PO SCH ×2 (07:49→21:50)
[2019-12-04] MEDS: ACETAMINOPHEN 500 MG TAB PO SCH ×3 (07:49→21:50)
[2019-12-04] MEDS: BACTRIM 160MG/800MG DS TAB PO SCH ×2 (07:49→21:49)
[2019-12-04] MEDS: GABAPENTIN 300 MG CAP PO SCH ×3 (07:51→21:49)
[2019-12-04] MEDS: lisinopriL 20 MG TAB PO SCH (07:51)
[2019-12-04] MEDS: METOPROLOL SUCC *XL* 12.5MG PER 1/2 TAB (TopROL *XL*) PO SCH (07:51)
[2019-12-04] MEDS: REMEDY PHYTOPLEX Z-GUARD PASTE 113GM TUBE (FROM STOREROOM PRODUCT) TOP SCH ×3 (07:52→21:00)
[2019-12-04] MEDS: TRIAMCINOLONE ACETONIDE 0.025 % 80 GM CREAM TOP SCH ×2 (07:52→21:51)
[2019-12-04] MEDS: ANALGESIC BALM CRM 120 GM TOP SCH ×3 (07:52→21:50)
[2019-12-04 08:00] VITALS: BP 119/96
[2019-12-04] MEDS: DOCUSATE SODIUM 100 MG CAP PO SCH ×2 (08:01→21:48)
[2019-12-04] MEDS: IPRATROPIUM 0.5MG/ALBUTEROL 2.5MG INH SOL UD 3ML (DUONEB)(J7620) NEB SCH ×3 (08:03→18:17)
[2019-12-04 14:00] VITALS: BP 84/58
--- NOTE | 2019-12-04 14:31 | IPNPDOC ---
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 REVIEW OF SYSTEMS: The following is a completed review of systems and has been reviewed. Review of systems otherwise unremarkable. PAIN: Patient self reports no pain EYES: decreased vision on the left EARS, NOSE, & THROAT: +dysphagia (improving) CARDIOVASCULAR: Denies chest pain or palpitations PULMONARY: Denies shortness of breath, +cough (improving) GASTROINTESTINAL: Denies constipation/diarrhea GENITOURINARY: urinary retention (chronic) MUSCULOSKELETAL: left sided weakness NEUROLOGICAL:left sided paresis HEMATOLOGICAL: denies easy bruising SKIN: left toe ulcer PSYCHIATRIC: Unremarkable All other review of systems found to be negative. PHYSICAL EXAMINATION: VITAL SIGNS: Please see below. GENERAL: Pleasant and cooperative. No acute distress. HEENT: PERRL. Extraocular movements grossly intact Clear conjunctiva CARDIOVASCULAR: Regular rate and rhythm. No murmurs, rubs, or gallops LUNGS: CTA ABDOMEN: Soft, nontender, nondistended. Positive bowel sounds. Normal active bowel sounds NEUROLOGICAL: Alert and oriented times three. Cranial nerves II through XII grossly intact. Sensation to light touch grossly intact in all 4 extremities, + extinction to touch on the left (+)left eye-brow sparing left facial droop (improving) (-) Babinksi bilat 0/4+ tone left elbow extensors EXTREMITIES: 5\\5 strength right upper extremities. Left UE 1/5 elbow flexors, 1/5 elbow extensors, 0/5 wrist extension, 0/5 power operator (patient noted to flex his left elbow ant-gravity while yawning) 5/5 RLE, 3+/5 left hip flexion, knee extension, 4/5 ankle DF, EHL, and PF SKIN: left D1-D2 interdigit ulcer (dry) coccyx area erythematous, blanchable ASSESSMENT:63-year-old M with past medical history of HTN who presents status post stroke PLAN: 1.Rehab-PT advance gait training, trunk control, strengthen, stretch, maintain ROM bilat LE- e-stim prn, ambulating with assistance short distances with [facility] OT- advance ADL management, strengthen, stretch, maintain ROM bilat UE, e-stim prn, left shoulder stabilization, consider taping, sling during ambulation for shoulder protectin, consider trial of mirror therapy for left arm 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 Cardiac: hx HTN, c/u metoprolol changed to succinate 12.5 daily for soft BPs, c/u lisinopril at lower dose 5mg daily and HCTZ also at lower dose 12.5mg daily- medicine consulted to assist in management, recent ECHO at [facility] not suggestive of systolic/diastolic CHF -HLD- c/u statin 4. Resp: hx of smoking with cough, c/u Duonebs standing, patient wheezing one exam has resolved, monitor for infection, encourage incentive spirometry -nicotine patch decreased dosing -hx of YAN but did not finish getting fitted for CPAP mask, c/u nocturnal 02, will need referral to pulmonology 5. Vasc: recent acute occlusion left superficial femoral artery, patient asymptomatic, will consider inhouse vascular consult prn 6. : hx of prostate cancer s/p radiation therapy with urethral stricture- patient had self-caths about once a month at home, failed TOV- Cortes reinserted 11-16-19 and then removed 11-26-19 due to urethral meatus erosion, urology consulted, recs greatly appreciated, c/u triamcinolone, will attempt to teach patient to self cath one-handed, adaptive equipment "HouseHold" has arrived, nursing instructed to encourage patient to use this for [id number] able to self-cath on his own -per urology Cortes is not an option and will need supra-pubic cath -c/u FLomax 0.8 mg qhs -patient started on Bactrim for 14 day total for Klebsiella pneumonia urethral discharge, concern for degree of prostatitis-will need urology f/u 7. DVT ppx: Teds, Dopplers negative, avoiding chemoprophylaxis given recent hemorrhage 8. GI ppx: protonix 9. Psych: insomnia- c/u trazodone 50mg -c/u prozac 20mg qHS for motor recovery in stroke -hx of chronic ETOH use- c/u gabapentin 300 mg TID 10. Skin- c/u barrier cream to sacrum, optifoam ordered, and roho cushion for wheelchair usage to prevent skin breakdown 11. Pain: c/u tylenol 12. Disp: 12-07-19 to home, progressing towards goals DME: Patient is wheelchair bound at this time and unable to complete his MRADLs in a timely or safe way without one. His home is wheelchair accessible, he is agreeable to using one and his family is able to help him use it. Having a wheelchair will help him complete his MRADLs. Allergies Coded Allergies: No Known Allergies (Verified Allergy, Unknown, 11/06/19) Vital Signs Vital Signs Date Time Temp Pulse Resp B/P (MAP) Pulse Ox O2 Delivery O2 Flow Rate FiO2 12/04/19 14:00 98.1 90 19 84/58 (67) 93 Room Air Microbiology Microbiology 11/29/19 Gram Stain - Final, Complete 11/29/19 Bacterial Culture - Final, Complete Klebsiella Pneumoniae Current Medications Current Medications Current Medications Medications (Trade) Dose Ordered Sig/Cj Route PRN Reason Start Time Stop Time Status Last Admin Dose Admin Acetaminophen (Tylenol Tab) 650 mg Q4HP PRN PO fever/MILD PAIN 11/06/19 16:15 11/09/19 14:23 DC 11/07/19 08:35 Acetaminophen (Tylenol Tab) 1,000 mg TID PO 11/09/19 16:00 11/09/19 15:15 DC Acetaminophen (Tylenol Tab) 1,000 mg TID PO 11/09/19 16:00 12/04/19 07:49 Acetaminophen (Tylenol Tab) 1,000 mg TIDP PRN PO PAIN 11/09/19 16:00 11/09/19 15:38 DC Albuterol/ Ipratropium (Duoneb (Ipr 0.5mg/Alb 2.5mg)) 3 ml RTID NEB 11/06/19 20:00 11/10/19 16:35 DC 11/10/19 07:52 Albuterol/ Ipratropium (Duoneb (Ipr 0.5mg/Alb 2.5mg)) 3 ml RTID NEB 11/13/19 14:00 12/04/19 13:06 Albuterol/ Ipratropium (Duoneb (Ipr 0.5mg/Alb 2.5mg)) 3 ml RTID PRN NEB SHORTNESS OF BREATH 11/10/19 16:45 11/13/19 12:47 DC Aspirin (Ecotrin) 81 mg DAILY PO 11/07/19 09:00 12/04/19 07:49 Atorvastatin Calcium (Lipitor) 40 mg QHS PO 11/06/19 21:00 Cancel Atorvastatin Calcium (Lipitor) 80 mg QHS PO 11/06/19 21:00 12/03/19 20:17 Bacitracin (Bacitracin Oint) apply to the head of pe... BID TOP 11/21/19 09:00 11/27/19 10:54 DC 11/26/19 21:40 Dexamethasone (Decadron) 2 mg BID PO 11/16/19 21:00 11/20/19 12:00 DC 11/20/19 09:57 Dexamethasone (Decadron) 2 mg DAILY PO 11/21/19 09:00 11/24/19 09:01 DC 11/24/19 08:51 Dexamethasone (Decadron) 2 mg TID PO 11/12/19 21:00 11/12/19 18:21 DC Dexamethasone (Decadron) 2 mg TID PO 11/12/19 21:00 11/16/19 17:54 DC 11/16/19 16:21 Docusate Sodium (Colace) 100 mg BID PO 11/06/19 21:00 12/01/19 08:19 Escitalopram Oxalate (Lexapro) 20 mg QHS PO 11/09/19 21:00 11/12/19 14:03 DC 11/11/19 21:01 Fluoxetine HCl (PROzac) 20 mg QHS PO 11/12/19 21:00 12/03/19 20:17 Gabapentin (Neurontin) 300 mg TID PO 11/10/19 21:00 12/04/19 07:51 Home Med (Med Rec Complete!) ASDIRECTED XX 11/06/19 17:45 11/06/19 17:44 DC Hydrochlorothiazide (Hydrodiuril) 12.5 mg DAILY PO 12/05/19 09:00 UNV Hydrochlorothiazide (Hydrodiuril) 25 mg DAILY PO 11/07/19 09:00 12/04/19 14:25 DC 12/04/19 07:49 Lidocaine HCl (Lidocaine 2% Urojet) APPLY TO CATHETER FOR P... ASDIRECTED PRN TOP FOR COMFORT 11/11/19 20:30 12/02/19 00:11 Lisinopril (Prinivil) 5 mg DAILY PO 12/05/19 09:00 UNV Lisinopril (Prinivil) 20 mg DAILY PO 11/16/19 09:00 12/04/19 14:25 DC 12/04/19 07:51 Lisinopril (Prinivil) 40 mg DAILY PO 11/07/19 09:00 11/15/19 17:09 DC 11/15/19 09:22 Magnesium Hydroxide (Milk Of Magnesia) 30 ml DAILYPRN PRN PO CONSTIPATION 11/06/19 16:15 Menthol/Methyl Salicylate (Bengay Cream) APPLY TO LOW BACK TID TOP 11/29/19 09:00 12/04/19 07:52 Metoprolol Succinate (TopROL XL) 12.5 mg DAILY PO 11/19/19 09:00 12/04/19 07:51 Metoprolol Tartrate (Lopressor) 50 mg BID PO 11/06/19 21:00 11/07/19 09:48 DC 11/07/19 08:31 Metoprolol Tartrate (Lopressor) 50 mg BID PO 11/15/19 21:00 11/19/19 10:01 DC 11/18/19 20:56 Metoprolol Tartrate (Lopressor) 75 mg BID PO 11/07/19 21:00 11/15/19 17:09 DC 11/15/19 09:24 Miscellaneous (Unresolved Clarification Entry) SEE LABEL COMMENTS DAILY XX 11/06/19 09:00 11/07/19 09:55 DC 11/06/19 18:17 Nicotine (Nicoderm Cq 14mg) 1 patch DAILY TD 11/13/19 14:00 12/04/19 07:48 Nicotine (Nicoderm Cq 21mg) 1 patch DAILY TD 11/06/19 09:00 11/13/19 12:47 DC 11/13/19 08:49 Pantoprazole Sodium (Protonix) 40 mg DAILY PO 11/06/19 09:00 12/04/19 07:49 Senna (Senokot) 1 tab QHS PO 11/06/19 21:00 11/30/19 20:33 Tamsulosin HCl (Flomax) 0.8 mg QHS PO 11/06/19 21:00 12/03/19 20:17 Ticagrelor (Brilinta) 90 mg BID PO 11/06/19 21:00 12/04/19 07:49 Trazodone HCl (Desyrel) 25 mg DAILY@0000 PO 11/09/19 00:00 11/12/19 17:57 DC 11/12/19 00:14 Trazodone HCl (Desyrel) 25 mg DAILY@2200 PO 11/12/19 22:00 11/19/19 11:39 DC 11/18/19 20:56 Trazodone HCl (Desyrel) 25 mg QHSP PRN PO INSOMNIA 11/06/19 16:15 11/08/19 11:19 DC Trazodone HCl (Desyrel) 50 mg DAILY@2200 PO 11/19/19 22:00 12/03/19 20:18 Triamcinolone Acetonide (Kenalog 0.025% Cream) apply to ventral uret... BID TOP 11/27/19 09:00 12/04/19 07:52 Trimethoprim/ Sulfamethoxazole (Bactrim Ds, Septra Ds 160mg/ 800mg) 1 tab BID PO 12/01/19 09:00 12/14/19 21:01 12/04/19 07:49 ANNE BENAVIDEZ MD Dec 04, 2019 14:31
[2019-12-04 16:46] VITALS: BP 95/56
[2019-12-04 20:00] VITALS: BP 107/59
[2019-12-04] MEDS: ATORVASTATIN 20 MG TAB PO SCH (21:48)
[2019-12-04] MEDS: SENNA 8.6 MG TAB (SENOKOT) PO SCH (21:48)
[2019-12-04] MEDS: traZODone 50 MG TAB PO SCH (21:49)
[2019-12-04] MEDS: FLUoxetine 20 MG CAP PO SCH (21:49)
[2019-12-04] MEDS: TAMSULOSIN 0.4 MG CAP PO SCH (21:50)
[2019-12-05 06:00] VITALS: BP 115/62
[2019-12-05 06:53] LABS: BASO % 0.6 % (0.0-1.0); EOS # 0.4 10^3/uL (0.0-0.5); EOS % 5.7 % (0.0-3.0); HEMATOCRIT 43.8 % (42.0-52.0); HEMOGLOBIN 14.8 g/dl (13.5-17.5); LYMPH # 1.3 10^3/uL (1.5-5.0); LYMPH % 19.7 % (24.0-44.0); MEAN CORPUSCULAR HEMOGLOBIN 33.5 pg (27.0-33.0); MEAN CORPUSCULAR HGB CONC 33.8 g/dl (32.0-36.5); MEAN CORPUSCULAR VOLUME 99.1 fl (80.0-96.0); MONO # 0.6 10^3/uL (0.0-0.8); MONO % 9.8 % (0.0-5.0); NEUTROPHILS # 4.1 10^3/uL (1.5-8.5); NEUTROPHILS % 63.9 % (36.0-66.0); PLATELET COUNT, AUTOMATED 214 10^3/uL (150-450); RED BLOOD COUNT 4.42 10^6/uL (4.30-6.10); WHITE BLOOD COUNT 6.4 10^3/uL (4.0-10.0)
[2019-12-05 07:15] LABS: BLOOD UREA NITROGEN 17 MG/DL (7-18); CALCIUM LEVEL 8.5 MG/DL (8.8-10.2); CARBON DIOXIDE LEVEL 26 MEQ/L (21-32); CHLORIDE LEVEL 106 MEQ/L (98-107); CREATININE FOR GFR 0.85 MG/DL (0.70-1.30); GLOMERULAR FILTRATION RATE > 60.0 (>49); GLUCOSE, FASTING 87 MG/DL (70-100); SODIUM LEVEL 139 MEQ/L (136-145)
[2019-12-05] MEDS: IPRATROPIUM 0.5MG/ALBUTEROL 2.5MG INH SOL UD 3ML (DUONEB)(J7620) NEB SCH ×4 (08:00→21:55)
[2019-12-05] MEDS: REMEDY PHYTOPLEX Z-GUARD PASTE 113GM TUBE (FROM STOREROOM PRODUCT) TOP SCH ×3 (09:00→21:31)
[2019-12-05] MEDS: TICAGRELOR 90 MG TABLET (BRILINTA) PO SCH ×2 (09:46→21:26)
[2019-12-05] MEDS: lisinopriL 5 MG TAB PO SCH (09:46)
[2019-12-05] MEDS: NICOTINE 14 MG/24 HR TRANSDERMAL TD SCH (09:46)
[2019-12-05] MEDS: GABAPENTIN 300 MG CAP PO SCH ×3 (09:47→21:26)
[2019-12-05] MEDS: DOCUSATE SODIUM 100 MG CAP PO SCH ×2 (09:47→21:24)
[2019-12-05] MEDS: ASPIRIN 81 MG ENTERIC TAB PO SCH (09:47)
[2019-12-05] MEDS: METOPROLOL SUCC *XL* 12.5MG PER 1/2 TAB (TopROL *XL*) PO SCH (09:47)
[2019-12-05] MEDS: BACTRIM 160MG/800MG DS TAB PO SCH ×2 (09:47→21:26)
[2019-12-05] MEDS: PANTOPRAZOLE 40MG TAB (PROTONIX) PO SCH (09:47)
[2019-12-05] MEDS: hydroCHLOROthiazide 12.5 MG CAPSULE PO SCH (09:47)
[2019-12-05] MEDS: ACETAMINOPHEN 500 MG TAB PO SCH ×3 (09:48→21:28)
[2019-12-05] MEDS: ANALGESIC BALM CRM 120 GM TOP SCH ×3 (09:49→21:29)
[2019-12-05] MEDS: TRIAMCINOLONE ACETONIDE 0.025 % 80 GM CREAM TOP SCH ×2 (09:49→21:30)
[2019-12-05 14:00] VITALS: BP 106/63
--- NOTE | 2019-12-05 17:32 | IPNPDOC ---
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 REVIEW OF SYSTEMS: The following is a completed review of systems and has been reviewed. Review of systems otherwise unremarkable. PAIN: Patient self reports no pain EYES: decreased vision on the left EARS, NOSE, & THROAT: +dysphagia (improving) CARDIOVASCULAR: Denies chest pain or palpitations PULMONARY: Denies shortness of breath, +cough (improving) GASTROINTESTINAL: Denies constipation/diarrhea GENITOURINARY: urinary retention (chronic) MUSCULOSKELETAL: left sided weakness NEUROLOGICAL:left sided paresis HEMATOLOGICAL: denies easy bruising SKIN: left toe ulcer PSYCHIATRIC: Unremarkable All other review of systems found to be negative. PHYSICAL EXAMINATION: VITAL SIGNS: Please see below. GENERAL: Pleasant and cooperative. No acute distress. HEENT: PERRL. Extraocular movements grossly intact Clear conjunctiva CARDIOVASCULAR: Regular rate and rhythm. No murmurs, rubs, or gallops LUNGS: CTA ABDOMEN: Soft, nontender, nondistended. Positive bowel sounds. Normal active bowel sounds NEUROLOGICAL: Alert and oriented times three. Cranial nerves II through XII grossly intact. Sensation to light touch grossly intact in all 4 extremities, + extinction to touch on the left (+)left eye-brow sparing left facial droop (improving) (-) Babinksi bilat 0/4+ tone left elbow extensors EXTREMITIES: 5\\5 strength right upper extremities. Left UE 1/5 elbow flexors, 1/5 elbow extensors, 0/5 wrist extension, 0/5 shopper's aide (patient noted to flex his left elbow ant-gravity while yawning) 5/5 RLE, 3+/5 left hip flexion, knee extension, 4/5 ankle DF, EHL, and PF SKIN: left D1-D2 interdigit ulcer (dry) coccyx area erythematous, blanchable ASSESSMENT:63-year-old M with past medical history of HTN who presents status post stroke PLAN: 1.Rehab-PT advance gait training, trunk control, strengthen, stretch, maintain ROM bilat LE- e-stim prn, ambulating with assistance short distances with [facility] OT- advance ADL management, strengthen, stretch, maintain ROM bilat UE, e-stim prn, left shoulder stabilization, consider taping, sling during ambulation for shoulder protectin, consider trial of 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 Cardiac: hx HTN, c/u metoprolol changed to succinate 12.5 daily for soft BPs, c/u lisinopril at lower dose 5mg daily and HCTZ also at lower dose 12.5mg daily- medicine consulted to assist in management, recent ECHO at [facility] not suggestive of systolic/diastolic CHF -HLD- c/u statin 4. Resp: hx of smoking with cough, c/u Duonebs standing, patient wheezing one exam has resolved, monitor for infection, encourage incentive spirometry -nicotine patch decreased dosing -hx of YAN but did not finish getting fitted for CPAP mask, c/u nocturnal 02, will need referral to pulmonology 5. Vasc: recent acute occlusion left superficial femoral artery, patient asymptomatic, will consider inhouse vascular consult prn 6. : hx of prostate cancer s/p radiation therapy with urethral stricture- patient had self-caths about once a month at home, failed TOV- Cortes reinserted 11-16-19 and then removed 11-26-19 due to urethral meatus erosion, urology consulted, recs greatly appreciated, c/u triamcinolone, will attempt to teach patient to self cath one-handed, adaptive equipment "HouseHold" has arrived, nursing instructed to encourage patient to use this for [id number] able to self-cath on his own -per urology Cortes is not an option and will need supra-pubic cath-able to self cath -c/u FLomax 0.8 mg qhs -patient started on Bactrim for 14 day total for Klebsiella pneumonia urethral discharge, concern for degree of prostatitis-will need urology f/u 7. DVT ppx: Teds, Dopplers negative, avoiding chemoprophylaxis given recent hemorrhage 8. GI ppx: protonix 9. Psych: insomnia- c/u trazodone 50mg -c/u prozac 20mg qHS for motor recovery in stroke -hx of chronic ETOH use- c/u gabapentin 300 mg TID 10. Skin- c/u barrier cream to sacrum, optifoam ordered, and roho cushion for wheelchair usage to prevent skin breakdown 11. Pain: c/u tylenol 12. Disp: 12-07-19 to home, progressing towards goals Allergies Coded Allergies: No Known Allergies (Verified Allergy, Unknown, 11/06/19) Vital Signs Vital Signs Date Time Temp Pulse Resp B/P (MAP) Pulse Ox O2 Delivery O2 Flow Rate FiO2 12/05/19 14:00 98.9 79 18 106/63 (77) 93 Room Air Laboratory Data CBC/BMP Laboratory Tests 12/05/19 06:24 Labs 24H Laboratory Tests 2 12/05/19 06:24: Immature Granulocyte % (Auto) 0.3, Neutrophils (%) (Auto) 63.9, Lymphocytes (%) (Auto) 19.7L, Monocytes (%) (Auto) 9.8H, Eosinophils (%) (Auto) 5.7H, Basophils (%) (Auto) 0.6, Neutrophils # (Auto) 4.1, Lymphocytes # (Auto) 1.3L, Monocytes # (Auto) 0.6, Eosinophils # (Auto) 0.4, Basophils # (Auto) 0.0, Nucleated Red Blood Cells % (auto) 0.0, Anion Gap 7L, Glomerular Filtration Rate > 60.0, Calcium Level 8.5L Microbiology Microbiology 11/29/19 Gram Stain - Final, Complete 11/29/19 Bacterial Culture - Final, Complete Klebsiella Pneumoniae Current Medications Current Medications Current Medications Medications (Trade) Dose Ordered Sig/Cj Route PRN Reason Start Time Stop Time Status Last Admin Dose Admin Acetaminophen (Tylenol Tab) 650 mg Q4HP PRN PO fever/MILD PAIN 11/06/19 16:15 11/09/19 14:23 DC 11/07/19 08:35 Acetaminophen (Tylenol Tab) 1,000 mg TID PO 11/09/19 16:00 11/09/19 15:15 DC Acetaminophen (Tylenol Tab) 1,000 mg TID PO 11/09/19 16:00 12/05/19 17:02 Acetaminophen (Tylenol Tab) 1,000 mg TIDP PRN PO PAIN 11/09/19 16:00 11/09/19 15:38 DC Albuterol/ Ipratropium (Duoneb (Ipr 0.5mg/Alb 2.5mg)) 3 ml RTID NEB 11/06/19 20:00 11/10/19 16:35 DC 11/10/19 07:52 Albuterol/ Ipratropium (Duoneb (Ipr 0.5mg/Alb 2.5mg)) 3 ml RTID NEB 11/13/19 14:00 12/04/19 18:17 Albuterol/ Ipratropium (Duoneb (Ipr 0.5mg/Alb 2.5mg)) 3 ml RTID PRN NEB SHORTNESS OF BREATH 11/10/19 16:45 11/13/19 12:47 DC Aspirin (Ecotrin) 81 mg DAILY PO 11/07/19 09:00 12/05/19 09:47 Atorvastatin Calcium (Lipitor) 40 mg QHS PO 11/06/19 21:00 Cancel Atorvastatin Calcium (Lipitor) 80 mg QHS PO 11/06/19 21:00 12/04/19 21:48 Bacitracin (Bacitracin Oint) apply to the head of pe... BID TOP 11/21/19 09:00 11/27/19 10:54 DC 11/26/19 21:40 Dexamethasone (Decadron) 2 mg BID PO 11/16/19 21:00 11/20/19 12:00 DC 11/20/19 09:57 Dexamethasone (Decadron) 2 mg DAILY PO 11/21/19 09:00 11/24/19 09:01 DC 11/24/19 08:51 Dexamethasone (Decadron) 2 mg TID PO 11/12/19 21:00 11/12/19 18:21 DC Dexamethasone (Decadron) 2 mg TID PO 11/12/19 21:00 11/16/19 17:54 DC 11/16/19 16:21 Docusate Sodium (Colace) 100 mg BID PO 11/06/19 21:00 12/05/19 09:47 Escitalopram Oxalate (Lexapro) 20 mg QHS PO 11/09/19 21:00 11/12/19 14:03 DC 11/11/19 21:01 Fluoxetine HCl (PROzac) 20 mg QHS PO 11/12/19 21:00 12/04/19 21:49 Gabapentin (Neurontin) 300 mg TID PO 11/10/19 21:00 12/05/19 17:01 Home Med (Med Rec Complete!) ASDIRECTED XX 11/06/19 17:45 11/06/19 17:44 DC Hydrochlorothiazide (Hydrodiuril) 12.5 mg DAILY PO 12/05/19 09:00 12/05/19 09:47 Hydrochlorothiazide (Hydrodiuril) 25 mg DAILY PO 11/07/19 09:00 12/04/19 14:25 DC 12/04/19 07:49 Lidocaine HCl (Lidocaine 2% Urojet) APPLY TO CATHETER FOR P... ASDIRECTED PRN TOP FOR COMFORT 11/11/19 20:30 12/02/19 00:11 Lisinopril (Prinivil) 5 mg DAILY PO 12/05/19 09:00 12/05/19 09:46 Lisinopril (Prinivil) 20 mg DAILY PO 11/16/19 09:00 12/04/19 14:25 DC 12/04/19 07:51 Lisinopril (Prinivil) 40 mg DAILY PO 11/07/19 09:00 11/15/19 17:09 DC 11/15/19 09:22 Magnesium Hydroxide (Milk Of Magnesia) 30 ml DAILYPRN PRN PO CONSTIPATION 11/06/19 16:15 Menthol/Methyl Salicylate (Bengay Cream) APPLY TO LOW BACK TID TOP 11/29/19 09:00 12/05/19 09:49 Metoprolol Succinate (TopROL XL) 12.5 mg DAILY PO 11/19/19 09:00 12/05/19 09:47 Metoprolol Tartrate (Lopressor) 50 mg BID PO 11/06/19 21:00 11/07/19 09:48 DC 11/07/19 08:31 Metoprolol Tartrate (Lopressor) 50 mg BID PO 11/15/19 21:00 11/19/19 10:01 DC 11/18/19 20:56 Metoprolol Tartrate (Lopressor) 75 mg BID PO 11/07/19 21:00 11/15/19 17:09 DC 11/15/19 09:24 Miscellaneous (Unresolved Clarification Entry) SEE LABEL COMMENTS DAILY XX 11/06/19 09:00 11/07/19 09:55 DC 11/06/19 18:17 Nicotine (Nicoderm Cq 14mg) 1 patch DAILY TD 11/13/19 14:00 12/05/19 09:46 Nicotine (Nicoderm Cq 21mg) 1 patch DAILY TD 11/06/19 09:00 11/13/19 12:47 DC 11/13/19 08:49 Pantoprazole Sodium (Protonix) 40 mg DAILY PO 11/06/19 09:00 12/05/19 09:47 Senna (Senokot) 1 tab QHS PO 11/06/19 21:00 12/04/19 21:48 Tamsulosin HCl (Flomax) 0.8 mg QHS PO 11/06/19 21:00 12/04/19 21:50 Ticagrelor (Brilinta) 90 mg BID PO 11/06/19 21:00 12/05/19 09:46 Trazodone HCl (Desyrel) 25 mg DAILY@0000 PO 11/09/19 00:00 11/12/19 17:57 DC 11/12/19 00:14 Trazodone HCl (Desyrel) 25 mg DAILY@2200 PO 11/12/19 22:00 11/19/19 11:39 DC 11/18/19 20:56 Trazodone HCl (Desyrel) 25 mg QHSP PRN PO INSOMNIA 11/06/19 16:15 11/08/19 11:19 DC Trazodone HCl (Desyrel) 50 mg DAILY@2200 PO 11/19/19 22:00 12/04/19 21:49 Triamcinolone Acetonide (Kenalog 0.025% Cream) apply to ventral uret... BID TOP 11/27/19 09:00 12/05/19 09:49 Trimethoprim/ Sulfamethoxazole (Bactrim Ds, Septra Ds 160mg/ 800mg) 1 tab BID PO 12/01/19 09:00 12/14/19 21:01 12/05/19 09:47 ANNE BENAVIDEZ MD Dec 05, 2019 17:31
[2019-12-05 20:00] VITALS: BP 118/71
[2019-12-05] MEDS: traZODone 50 MG TAB PO SCH (21:24)
[2019-12-05] MEDS: FLUoxetine 20 MG CAP PO SCH (21:26)
[2019-12-05] MEDS: SENNA 8.6 MG TAB (SENOKOT) PO SCH (21:26)
[2019-12-05] MEDS: ATORVASTATIN 20 MG TAB PO SCH (21:27)
[2019-12-05] MEDS: TAMSULOSIN 0.4 MG CAP PO SCH (21:27)
[2019-12-06 06:00] VITALS: BP 138/80
[2019-12-06] MEDS: IPRATROPIUM 0.5MG/ALBUTEROL 2.5MG INH SOL UD 3ML (DUONEB)(J7620) NEB SCH ×3 (07:21→19:54)
[2019-12-06] MEDS: REMEDY PHYTOPLEX Z-GUARD PASTE 113GM TUBE (FROM STOREROOM PRODUCT) TOP SCH ×2 (09:00→16:00)
[2019-12-06] MEDS: ANALGESIC BALM CRM 120 GM TOP SCH ×3 (09:00→20:06)
[2019-12-06] MEDS: DOCUSATE SODIUM 100 MG CAP PO SCH ×2 (10:00→20:02)
[2019-12-06] MEDS: NICOTINE 14 MG/24 HR TRANSDERMAL TD SCH (10:00)
[2019-12-06] MEDS: ACETAMINOPHEN 500 MG TAB PO SCH ×3 (10:01→23:05)
[2019-12-06] MEDS: hydroCHLOROthiazide 12.5 MG CAPSULE PO SCH (10:01)
[2019-12-06] MEDS: BACTRIM 160MG/800MG DS TAB PO SCH ×2 (10:01→20:05)
[2019-12-06 10:02] VITALS: BP 140/68
[2019-12-06] MEDS: ASPIRIN 81 MG ENTERIC TAB PO SCH (10:02)
[2019-12-06] MEDS: GABAPENTIN 300 MG CAP PO SCH ×3 (10:02→20:05)
[2019-12-06] MEDS: TICAGRELOR 90 MG TABLET (BRILINTA) PO SCH ×2 (10:02→20:05)
[2019-12-06] MEDS: PANTOPRAZOLE 40MG TAB (PROTONIX) PO SCH (10:02)
[2019-12-06] MEDS: lisinopriL 5 MG TAB PO SCH (10:02)
[2019-12-06] MEDS: METOPROLOL SUCC *XL* 12.5MG PER 1/2 TAB (TopROL *XL*) PO SCH (10:03)
[2019-12-06] MEDS ORDERED: HYDR12CA PO (10:28)
[2019-12-06] MEDS ORDERED: GABA-843 PO (10:28)
[2019-12-06] MEDS ORDERED: NICO14PA TD (10:28)
[2019-12-06] MEDS ORDERED: ASPI81TAEC PO (10:28)
[2019-12-06] MEDS ORDERED: ATOR1TAB21 PO (10:28)
[2019-12-06] MEDS ORDERED: BRIL90TA PO (10:28)
[2019-12-06] MEDS ORDERED: LISI-542 PO (10:28)
[2019-12-06] MEDS ORDERED: TRAZ-252 PO (10:28)
[2019-12-06] MEDS ORDERED: FLOM0.4C39 PO (10:28)
[2019-12-06] MEDS ORDERED: TRIA25CR TOP (10:28)
[2019-12-06] MEDS ORDERED: FLUO20CA22 PO (10:28)
[2019-12-06] MEDS ORDERED: METO1TAB32 PO (10:28)
[2019-12-06] MEDS ORDERED: SULF1TAB93 PO (10:31)
[2019-12-06] MEDS: TRIAMCINOLONE ACETONIDE 0.025 % 80 GM CREAM TOP SCH ×2 (11:00→20:06)
[2019-12-06 12:47] LABS: HEMATOCRIT 44.7 % (42.0-52.0); HEMOGLOBIN 14.9 g/dl (13.5-17.5)
[2019-12-06 14:00] VITALS: BP 126/75
[2019-12-06 20:00] VITALS: BP 108/60
[2019-12-06] MEDS: SENNA 8.6 MG TAB (SENOKOT) PO SCH (20:03)
[2019-12-06] MEDS: TAMSULOSIN 0.4 MG CAP PO SCH (20:05)
[2019-12-06] MEDS: FLUoxetine 20 MG CAP PO SCH (20:05)
[2019-12-06] MEDS: ATORVASTATIN 20 MG TAB PO SCH (20:05)
[2019-12-06] MEDS: traZODone 50 MG TAB PO SCH (23:05)
[2019-12-07 05:47] VITALS: BP 127/70
[2019-12-07] MEDS: IPRATROPIUM 0.5MG/ALBUTEROL 2.5MG INH SOL UD 3ML (DUONEB)(J7620) NEB SCH (07:16)
[2019-12-07 08:04] LABS: HEMATOCRIT 45.1 % (42.0-52.0); HEMOGLOBIN 15.2 g/dl (13.5-17.5)
[2019-12-07] MEDS: hydroCHLOROthiazide 12.5 MG CAPSULE PO SCH (09:22)
[2019-12-07] MEDS: lisinopriL 5 MG TAB PO SCH (09:22)
[2019-12-07] MEDS: METOPROLOL SUCC *XL* 12.5MG PER 1/2 TAB (TopROL *XL*) PO SCH (09:22)
[2019-12-07] MEDS: ASPIRIN 81 MG ENTERIC TAB PO SCH (09:22)
[2019-12-07] MEDS: GABAPENTIN 300 MG CAP PO SCH (09:23)
[2019-12-07] MEDS: PANTOPRAZOLE 40MG TAB (PROTONIX) PO SCH (09:23)
[2019-12-07] MEDS: BACTRIM 160MG/800MG DS TAB PO SCH (09:23)
[2019-12-07] MEDS: DOCUSATE SODIUM 100 MG CAP PO SCH (09:23)
[2019-12-07] MEDS: NICOTINE 14 MG/24 HR TRANSDERMAL TD SCH (09:23)
[2019-12-07] MEDS: TRIAMCINOLONE ACETONIDE 0.025 % 80 GM CREAM TOP SCH (09:24)
[2019-12-07] MEDS: ACETAMINOPHEN 500 MG TAB PO SCH (09:24)
[2019-12-07] MEDS: ANALGESIC BALM CRM 120 GM TOP SCH (09:25)
--- NOTE | 2019-12-07 10:24 | CR.PDOC ---
General Surgery Consultation Date of Consultation 12/06/19 History and Physical CONSULT REPORT FOR: Dr. Monteiro REASON FOR CONSULTATION: hematochezia HISTORY OF PRESENT ILLNESS: PAST MEDICAL HISTORY: 1. . PAST SURGICAL HISTORY: INCLUDES: 1. . PREVIOUS ANESTHESIA REACTIONS: ALLERGIES: Please see below. FAMILY HISTORY: . HOME MEDICATIONS: Please see below. REVIEW OF SYSTEMS: GENERAL: [Denies chills, reports weight gain, reports feeling febrile yesterday]. HEENT: [Denies blurred vision and double vision. Denies ear symptoms. Denies hoarseness]. NECK: Denies any neck pain]. CARDIOVASCULAR: [Denies chest pain and palpitations]. MUSCULOSKELETAL: [Denies arthralgias, back pain and thrombophlebitis]. SKIN: [Denies rash]. NEUROLOGIC: [Denies headache, stroke and transient ischemic attack]. PSYCHIATRIC: [Denies anxiety and depression]. ENDOCRINE: [Denies thyroid disease]. HEMATOLOGY/ONCOLOGY: [Denies bleeding or clotting disorder]. HEART: [Denies any chest pains, palpitations, paroxysmal dyspnea, orthopnea]. PULMONARY: [Denies chronic cough, dyspnea and wheezing]. GASTROINTESTINAL: [Denies rectal bleeding, family history of colon cancer, constipation, diarrhea, dysphagia, heartburn and jaundice]. GENITOURINARY: [Denies dysuria, frequency, hematuria and nocturia]. ENDOCRINE: [Denies polydipsia, polyphagia, polyuria, heat or cold intolerance]. INFECTIOUS: [Denies any recent upper respiratory tract infection, UTI, need for use of antibiotics]. NUTRITION: [Reports good appetite]. PHYSICAL EXAMINATION: VITALS SIGNS: Please see below. GENERAL APPEARANCE:[Patient seen, laying in bed, awake, alert, and oriented. Comfortable, in no acute distress]. SKIN: [Warm and moist]. HEENT: [Normocephalic, atraumatic. Adona palpebral conjunctiva, anicteric sclerae. Lips and mucosa appear moist]. NECK: [Supple, no thyromegaly. No obvious jugular venous distention]. LUNGS: [Clear to auscultation bilaterally. No wheezing appreciated]. HEART: [No chest wall abnormalities. Regular rate and rhythm with no murmurs appreciated]. ABDOMEN: Abdomen is , soft, . [No hepatosplenomegaly. No umbilical or groin herniations, nondistended. No noticeable rebound or guarding. No grimacing with palpation. No rebound tenderness. No masses appreciated]. EXTREMITIES: [Extremities have no deformities. No edema identified] ANCILLARIES: . LABORATORY DATA: Please see below. IMAGING STUDIES: . IMPRESSION AND PLAN: hematochezia He looks to be hemodynamically stable. By description of the nurse and the patient maybe something just local - hemorrhoids irritation, stercoral mucosal bleeding from passing hard stools the day prior. His stools were well formed but soft the morning of the reported event with some blood and clots in the toilet bowl. He has not had any further bms today and no drop in his hgb and hct. He has not had any prior colonoscopy and he was advised to have one as outpatient. He would like to go home on the . If he remains stable and bleeding is minimal or absent then he can continue his antiplatelets and go home and arrange for outpatient colonoscopy. One thing that will need to determined is when he can be off his antiplatelets for a colonoscopy. Vital Signs Vital Signs Date Time Temp Pulse Resp B/P (MAP) Pulse Ox O2 Delivery O2 Flow Rate FiO2 12/07/19 05:47 99.4 72 18 127/70 (89) 94 Room Air 12/07/19 04:08 0.0 21 I&Os I&O- Last 24 Hours up to 6 AM 12/07/19 06:00 Intake Total 1145 ml Output Total 2325 ml Balance -1180 ml Laboratory Data CBC/BMP Laboratory Tests 12/06/19 12:13 12/07/19 07:13 Microbiology Microbiology 11/29/19 Gram Stain - Final, Complete 11/29/19 Bacterial Culture - Final, Complete Klebsiella Pneumoniae Home Medications Scheduled Aspirin (Aspir 81) 81 Mg Tablet.dr, 81 MG PO DAILY, (Reported) Aspirin (Aspirin EC) 81 Mg Tablet., 81 MG PO DAILY Atorvastatin Calcium (Atorvastatin Calcium) 80 Mg Tablet, 80 MG PO QHS, (Reported) INCREASED DOSE AT [facility] Atorvastatin Calcium (Atorvastatin Calcium) 20 Mg Tablet, 80 MG PO QHS Fluoxetine Hcl (Fluoxetine HCl) 20 Mg Capsule, 20 MG PO QHS Gabapentin (Gabapentin) 300 Mg Capsule, 300 MG PO TID Hydrochlorothiazide (Hydrochlorothiazide) 12.5 Mg Capsule, 12.5 MG PO DAILY Lisinopril (Lisinopril) 5 Mg Tablet, 5 MG PO DAILY Metoprolol Succinate (Metoprolol Succinate) 25 Mg Tab.er.24h, 12.5 MG PO DAILY Nicotine (Nicotine Patch) 14 Mg Patch.td24, 1 PATCH TD DAILY do not smoke while using the patch Sulfamethoxazole/Trimethoprim (Sulfamethoxazole-Tmp Ds Tablet) 1 Each Tablet, 1 TAB PO BID Tamsulosin HCl (Flomax) 0.4 Mg Capsule, 0.8 MG PO DAILY, (Reported) Tamsulosin HCl (Flomax) 0.4 Mg Capsule, 0.8 MG PO QHS Ticagrelor Base (Brilinta) 90 Mg Tablet, 90 MG PO BID, (Reported) Ticagrelor Base (Brilinta) 90 Mg Tablet, 90 MG PO BID Trazodone HCl (Trazodone HCl) 50 Mg Tablet, 50 MG PO DAILY@2200 Triamcinolone Acet (Triamcinolone Acetonide 0.025% Crm) 80 Gm Cream..g., 0 DOSE TOP BID Allergies Coded Allergies: No Known Allergies (Verified Allergy, Unknown, 11/06/19) JOAO POLLACK MD Dec 07, 2019 10:24
--- NOTE | 2019-12-07 12:11 | IPNPDOC ---
PM&R Progress Note DATE OF SERVICE: Dec 06, 2019 Director [employer] Progress Note Subjective: Patient reporting he had a bloody bowel movement today and thinks it is because he strained yesterday passing very hard stool. REVIEW OF SYSTEMS: The following is a completed review of systems and has been reviewed. Review of systems otherwise unremarkable. PAIN: Patient self reports no pain EYES: decreased vision on the left EARS, NOSE, & THROAT: +dysphagia (improving) CARDIOVASCULAR: Denies chest pain or palpitations PULMONARY: Denies shortness of breath, +cough (improving) GASTROINTESTINAL: Denies constipation/diarrhea GENITOURINARY: urinary retention (chronic) MUSCULOSKELETAL: left sided weakness NEUROLOGICAL:left sided paresis HEMATOLOGICAL: denies easy bruising SKIN: left toe ulcer PSYCHIATRIC: Unremarkable All other review of systems found to be negative. PHYSICAL EXAMINATION: VITAL SIGNS: Please see below. GENERAL: Pleasant and cooperative. No acute distress. HEENT: PERRL. Extraocular movements grossly intact Clear conjunctiva CARDIOVASCULAR: Regular rate and rhythm. No murmurs, rubs, or gallops LUNGS: CTA ABDOMEN: Soft, nontender, nondistended. Positive bowel sounds. Normal active bowel sounds NEUROLOGICAL: Alert and oriented times three. Cranial nerves II through XII grossly intact. Sensation to light touch grossly intact in all 4 extremities, + extinction to touch on the left (+)left eye-brow sparing left facial droop (improving) (-) Babinksi bilat 0/4+ tone left elbow extensors EXTREMITIES: 5\\5 strength right upper extremities. 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 (patient noted to flex his left elbow ant-gravity while yawning) 5/5 RLE, 3+/5 left hip flexion, knee extension, 4/5 ankle DF, EHL, and PF SKIN: left D1-D2 interdigit ulcer (dry) coccyx area erythematous, blanchable ASSESSMENT:63-year-old M with past medical history of HTN who presents status post stroke PLAN: 1.Rehab-PT advance gait training, trunk control, strengthen, stretch, maintain ROM bilat LE- e-stim prn, ambulating with assistance short distances with [facility]QC OT- advance ADL management, strengthen, stretch, maintain ROM bilat UE, e-stim prn, left shoulder stabilization, consider taping, sling during ambulation for shoulder protectin, consider trial of mirror therapy for left arm RN CLINICAL DOCUMENTATION: dysphagia and cog- upgraded to level 4 thins 2. 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 Cardiac: hx HTN, c/u metoprolol changed to succinate 12.5 daily for soft BPs, c/u lisinopril at lower dose 5mg daily and HCTZ also at lower dose 12.5mg daily- medicine consulted to assist in management, recent ECHO at [facility] not suggestive of systolic/diastolic CHF -HLD- c/u statin 4. Resp: hx of smoking with cough, c/u Duonebs standing, patient wheezing one exam has resolved, monitor for infection, encourage incentive spirometry -nicotine patch decreased dosing -hx of YAN but did not finish getting fitted for CPAP mask, c/u nocturnal 02, will need referral to pulmonology -bnoc-ox test ordered for tonight to see if he is eligible for home oxygen 5. Vasc: recent acute occlusion left superficial femoral artery, patient asymptomatic, will consider inhouse vascular consult prn 6. : hx of prostate cancer s/p radiation therapy with urethral stricture- patient had self-caths about once a month at home, failed TOV- Cortes reinserted 11-16-19 and then removed 11-26-19 due to urethral meatus erosion, urology consulted, recs greatly appreciated, c/u triamcinolone, will attempt to teach patient to self cath one-handed, adaptive equipment "HouseHold" has arrived, nursing instructed to encourage patient to use this for [id number] able to self-cath on his own -per urology Cortes is not an option and will need supra-pubic cath-able to self cath, patient encouraged to make sure he has fully drained his bladder by inserting the cath in further once he stops draining -c/u FLomax 0.8 mg qhs -patient started on Bactrim for 14 day total for Klebsiella pneumonia urethral discharge, concern for degree of prostatitis-will need urology f/u -patient asking if it is safe to use Viagra, he was instructed to wait at least 6 months from his stroke and discuss with his PMD at that time 7. DVT ppx: Teds, Dopplers negative, avoiding chemoprophylaxis given recent hemorrhage 8. GI ppx: protonix -episode of bloody bowel movement today, patient reporting he had hard stool yesterday that was painful to pass, evaluated by general surgery, recs appreciated, HH stable, will schedule for f/u and colonoscopy within 2 weeks 9. Psych: insomnia- c/u trazodone 50mg -c/u prozac 20mg qHS for motor recovery in stroke -hx of chronic ETOH use- c/u gabapentin 300 mg TID 10. Skin- c/u barrier cream to sacrum, optifoam ordered, and roho cushion for wheelchair usage to prevent skin breakdown-patient prefers standard cushion 11. Pain: c/u tylenol 12. Disp: 12-07-19 to home, progressing towards goals Allergies Coded Allergies: No Known Allergies (Verified Allergy, Unknown, 11/06/19) Vital Signs Vital Signs Date Time Temp Pulse Resp B/P (MAP) Pulse Ox O2 Delivery O2 Flow Rate FiO2 12/07/19 05:47 99.4 72 18 127/70 (89) 94 Room Air 12/07/19 04:08 0.0 21 Laboratory Data CBC/BMP Laboratory Tests 12/06/19 12:13 12/07/19 07:13 Microbiology Microbiology 11/29/19 Gram Stain - Final, Complete 11/29/19 Bacterial Culture - Final, Complete Klebsiella Pneumoniae Current Medications Current Medications Current Medications Medications (Trade) Dose Ordered Sig/Cj Route PRN Reason Start Time Stop Time Status Last Admin Dose Admin Acetaminophen (Tylenol Tab) 650 mg Q4HP PRN PO fever/MILD PAIN 11/06/19 16:15 11/09/19 14:23 DC 11/07/19 08:35 Acetaminophen (Tylenol Tab) 1,000 mg TID PO 11/09/19 16:00 11/09/19 15:15 DC Acetaminophen (Tylenol Tab) 1,000 mg TID PO 11/09/19 16:00 12/07/19 09:24 Acetaminophen (Tylenol Tab) 1,000 mg TIDP PRN PO PAIN 11/09/19 16:00 11/09/19 15:38 DC Albuterol/ Ipratropium (Duoneb (Ipr 0.5mg/Alb 2.5mg)) 3 ml RTID NEB 11/06/19 20:00 11/10/19 16:35 DC 11/10/19 07:52 Albuterol/ Ipratropium (Duoneb (Ipr 0.5mg/Alb 2.5mg)) 3 ml RTID NEB 11/13/19 14:00 12/07/19 07:16 Albuterol/ Ipratropium (Duoneb (Ipr 0.5mg/Alb 2.5mg)) 3 ml RTID PRN NEB SHORTNESS OF BREATH 11/10/19 16:45 11/13/19 12:47 DC Aspirin (Ecotrin) 81 mg DAILY PO 11/07/19 09:00 12/07/19 09:22 Atorvastatin Calcium (Lipitor) 40 mg QHS PO 11/06/19 21:00 Cancel Atorvastatin Calcium (Lipitor) 80 mg QHS PO 11/06/19 21:00 12/06/19 20:05 Bacitracin (Bacitracin Oint) apply to the head of pe... BID TOP 11/21/19 09:00 11/27/19 10:54 DC 11/26/19 21:40 Dexamethasone (Decadron) 2 mg BID PO 11/16/19 21:00 11/20/19 12:00 DC 11/20/19 09:57 Dexamethasone (Decadron) 2 mg DAILY PO 11/21/19 09:00 11/24/19 09:01 DC 11/24/19 08:51 Dexamethasone (Decadron) 2 mg TID PO 11/12/19 21:00 11/12/19 18:21 DC Dexamethasone (Decadron) 2 mg TID PO 11/12/19 21:00 11/16/19 17:54 DC 11/16/19 16:21 Docusate Sodium (Colace) 100 mg BID PO 11/06/19 21:00 12/07/19 09:23 Escitalopram Oxalate (Lexapro) 20 mg QHS PO 11/09/19 21:00 11/12/19 14:03 DC 11/11/19 21:01 Fluoxetine HCl (PROzac) 20 mg QHS PO 11/12/19 21:00 12/06/19 20:05 Gabapentin (Neurontin) 300 mg TID PO 11/10/19 21:00 12/07/19 09:23 Home Med (Med Rec Complete!) ASDIRECTED XX 11/06/19 17:45 11/06/19 17:44 DC Hydrochlorothiazide (Hydrodiuril) 12.5 mg DAILY PO 12/05/19 09:00 12/07/19 09:22 Hydrochlorothiazide (Hydrodiuril) 25 mg DAILY PO 11/07/19 09:00 12/04/19 14:25 DC 12/04/19 07:49 Lidocaine HCl (Lidocaine 2% Urojet) APPLY TO CATHETER FOR P... ASDIRECTED PRN TOP FOR COMFORT 11/11/19 20:30 12/02/19 00:11 Lisinopril (Prinivil) 5 mg DAILY PO 12/05/19 09:00 12/07/19 09:22 Lisinopril (Prinivil) 20 mg DAILY PO 11/16/19 09:00 12/04/19 14:25 DC 12/04/19 07:51 Lisinopril (Prinivil) 40 mg DAILY PO 11/07/19 09:00 11/15/19 17:09 DC 11/15/19 09:22 Magnesium Hydroxide (Milk Of Magnesia) 30 ml DAILYPRN PRN PO CONSTIPATION 11/06/19 16:15 Menthol/Methyl Salicylate (Bengay Cream) APPLY TO LOW BACK TID TOP 11/29/19 09:00 12/07/19 09:25 Metoprolol Succinate (TopROL XL) 12.5 mg DAILY PO 11/19/19 09:00 12/07/19 09:22 Metoprolol Tartrate (Lopressor) 50 mg BID PO 11/06/19 21:00 11/07/19 09:48 DC 11/07/19 08:31 Metoprolol Tartrate (Lopressor) 50 mg BID PO 11/15/19 21:00 11/19/19 10:01 DC 11/18/19 20:56 Metoprolol Tartrate (Lopressor) 75 mg BID PO 11/07/19 21:00 11/15/19 17:09 DC 11/15/19 09:24 Miscellaneous (Unresolved Clarification Entry) SEE LABEL COMMENTS DAILY XX 11/06/19 09:00 11/07/19 09:55 DC 11/06/19 18:17 Miscellaneous (Unresolved Clarification Entry) SEE LABEL COMMENTS DAILY XX 12/06/19 09:00 12/06/19 18:26 DC Nicotine (Nicoderm Cq 14mg) 1 patch DAILY TD 11/13/19 14:00 12/07/19 09:23 Nicotine (Nicoderm Cq 21mg) 1 patch DAILY TD 11/06/19 09:00 11/13/19 12:47 DC 11/13/19 08:49 Pantoprazole Sodium (Protonix) 40 mg DAILY PO 11/06/19 09:00 12/07/19 09:23 Senna (Senokot) 1 tab QHS PO 11/06/19 21:00 12/05/19 21:26 Tamsulosin HCl (Flomax) 0.8 mg QHS PO 11/06/19 21:00 12/06/19 20:05 Ticagrelor (Brilinta) 90 mg BID PO 11/06/19 21:00 12/06/19 20:05 Trazodone HCl (Desyrel) 25 mg DAILY@0000 PO 11/09/19 00:00 11/12/19 17:57 DC 11/12/19 00:14 Trazodone HCl (Desyrel) 25 mg DAILY@2200 PO 11/12/19 22:00 11/19/19 11:39 DC 11/18/19 20:56 Trazodone HCl (Desyrel) 25 mg QHSP PRN PO INSOMNIA 11/06/19 16:15 11/08/19 11:19 DC Trazodone HCl (Desyrel) 50 mg DAILY@2200 PO 11/19/19 22:00 12/06/19 23:05 Triamcinolone Acetonide (Kenalog 0.025% Cream) apply to ventral uret... BID TOP 11/27/19 09:00 12/07/19 09:24 Trimethoprim/ Sulfamethoxazole (Bactrim Ds, Septra Ds 160mg/ 800mg) 1 tab BID PO 12/01/19 09:00 12/14/19 21:01 12/07/19 09:23 ANNE BENAVIDEZ MD Dec 07, 2019 12:11
--- NOTE | 2019-12-10 10:04 | NOCOX ---
DATE OF PROCEDURE : 12/06/2019 INTERPRETATION: Recording nocturnal oximetry was performed on room air. A total of 6 hours and 51 minutes of data was reviewed. Mean oxygen saturation for the study was 93% with a minimum recorded value of 83%. He spent 1.1% of the night with saturations less than or equal to 88%. The SPO2 wave form shows fluctuations suggestive of sleep disordered breathing. IMPRESSION: 1. Acceptable oxygenation on room air. 2. Fluctuations in the SPO2 waveform suggestive of sleep disordered breathing. Clinical correlation will be necessary.
== END 2019-12-07 13:25 | disposition home health service (06) | DRG 58 ==
LOC: M PM&R 14:20
PROVIDERS: ADMIT Physical Medicine & Rehabilitation; ATTEND Physical Medicine & Rehabilitation
DX: I69.354 Hemiplegia and hemiparesis following cerebral infarction affecting left non-dominant side (principal); I69.391 Dysphagia following cerebral infarction; R13.10 Dysphagia, unspecified; R33.9 Retention of urine, unspecified; L97.529 Non-pressure chronic ulcer of other part of left foot with unspecified severity; R26.89 Other abnormalities of gait and mobility; I10 Essential (primary) hypertension; I25.10 Atherosclerotic heart disease of native coronary artery without angina pectoris; R41.4 Neurologic neglect syndrome; Z85.46 Personal history of malignant neoplasm of prostate; Z79.82 Long term (current) use of aspirin; Z79.899 Other long term (current) drug therapy; I69.390 Apraxia following cerebral infarction; Z87.891 Personal history of nicotine dependence; G47.33 Obstructive sleep apnea (adult) (pediatric); G47.00 Insomnia, unspecified; I65.21 Occlusion and stenosis of right carotid artery; Z95.828 Presence of other vascular implants and grafts; N35.919 Unspecified urethral stricture, male, unspecified site; Z99.3 Dependence on wheelchair; K92.1 Melena

== ENCOUNTER → 2023-02-24 | Outpatient (REF) | payer OTHER, MEDICARE, MEDICAID ==
[~2023-02-24] MED LIST changes: +ASPI-569 PO; +ASPI81TA86 PO; +ATOR1TAB21 PO; +ATOR80TA59 PO; +BACTDSTA PO; +BRIL90TA PO; +FLOM0.4C39 PO; +FLUO20CA22 PO; +GABA-282 PO; +HYDR-3490 PO; +HYDR12CA PO; +LISI40TA4 PO; +LISI5TAB11 PO; +MELA5TAB7 PO; +METO1TAB32 PO; +METO1TAB7 PO; +METO50TA7 PO; +NICO14PA TD; +NICO21DI38 TD; +TRAZ-186 PO; +TRAZ-252 PO; +TRIA25CR TOP
[2023-02-24 13:57] LABS: APPEARANCE, URINE CLEAR (CLEAR); BACTERIA, URINE AUTO NEGATIVE (NEGATIVE); BILIRUBIN, URINE AUTO NEGATIVE (NEGATIVE); BLOOD, URINE BLOOD NEGATIVE (NEGATIVE); COLOR, URINE YELLOW (YELLOW); GLUCOSE, URINE (UA) AUTO NEGATIVE (NEGATIVE); KETONE, URINE AUTO NEGATIVE (NEGATIVE); LEUKOCYTE ESTERASE, URINE AUTO NEGATIVE (NEGATIVE); NITRITE, URINE AUTO NEGATIVE (NEGATIVE); PROTEIN, URINE AUTO NEGATIVE (NEGATIVE); RBC, URINE AUTO 1 /HPF (0-3); SPECIFIC GRAVITY URINE AUTO 1.008 (1.002-1.035); SQUAMOUS EPITHELIAL CELL UR AU 0 /HPF (0-6); UROBILINOGEN, URINE AUTO 0.2 mg/dL (0.0-2.0); WBC, URINE AUTO 0 /HPF (0-3)
== END ==
LOC: M SMT 13:08
PROVIDERS: ATTEND Physician Assistant
DX: R33.9 Retention of urine, unspecified (principal)

== ENCOUNTER → 2023-03-28 | Outpatient (REF) | payer OTHER, MEDICARE, MEDICAID | LOC: M LAB REF 13:50 | PROVIDERS: ATTEND Podiatrist Foot & Ankle Surgery | DX: I96 Gangrene, not elsewhere classified (principal) ==

== ENCOUNTER 2023-08-22 13:45 | Emergency (ER) | payer MEDICARE, OTHER ==
[~2023-08-22] VITALS: Ht 182.9 cm; Wt 89.1 kg
[2023-08-22 14:40] LABS: BASO # 0.1 10^3/uL (0.0-0.2); EOS # 0.3 10^3/uL (0.0-0.5); EOS % 3.7 % (0.0-3.0); HEMATOCRIT 50.1 % (42.0-52.0); HEMOGLOBIN 17.9 g/dl (13.5-17.5); LYMPH # 2.7 10^3/uL (1.5-5.0); MEAN CORPUSCULAR HEMOGLOBIN 35.6 pg (27.0-33.0); MEAN CORPUSCULAR HGB CONC 35.7 g/dl (32.0-36.5); MEAN CORPUSCULAR VOLUME 99.6 fl (80.0-96.0); MONO # 0.7 10^3/uL (0.0-0.8); MONO % 8.2 % (2.0-8.0); NEUTROPHILS # 4.6 10^3/uL (1.5-8.5); NEUTROPHILS % 54.7 % (36.0-66.0); PLATELET COUNT, AUTOMATED 260 10^3/uL (150-450); RED BLOOD COUNT 5.03 10^6/uL (4.30-6.10); WHITE BLOOD COUNT 8.4 10^3/uL (4.0-10.0)
[2023-08-22 14:50] LABS: INR 0.99; PROTHROMBIN TIME 12.8 SECONDS (12.5-14.5)
[2023-08-22 14:51] LABS: PARTIAL THROMBOPLASTIN TIME 26.8 SECONDS (24.8-34.2)
[2023-08-22 15:06] LABS: ERYTHROCYTE SEDIMENTATION RATE 11 mm/hr (0-20)
[2023-08-22 15:09] LABS: C REACTIVE PROTEIN QUANTITATIV < 0.40 MG/DL (<1.0)
[2023-08-22 15:10] LABS: ALBUMIN 3.5 G/DL (3.2-5.2); ALKALINE PHOSPHATASE 66 U/L (46-116); ALT/SGPT 34 U/L (7.0-40); AST/SGOT 28 U/L (<34); BILIRUBIN,DIRECT 0.3 MG/DL (<0.4); BILIRUBIN,TOTAL 0.6 MG/DL (0.3-1.2); BLOOD UREA NITROGEN 6 MG/DL (9-23); CALCIUM LEVEL 8.8 MG/DL (8.3-10.6); CARBON DIOXIDE LEVEL 22 MMOL/L (20-31); CHLORIDE LEVEL 106 MMOL/L (98-107); CREATININE FOR GFR 0.62 MG/DL (0.70-1.30); GLOMERULAR FILTRATION RATE > 60.0 (>49); GLUCOSE, FASTING 66 MG/DL (74-106); POTASSIUM SERUM 3.8 MMOL/L (3.5-5.1); SODIUM LEVEL 140 MMOL/L (136-145); TOTAL PROTEIN 6.6 G/DL (5.7-8.2)
[2023-08-22] MEDS ORDERED: HEPARIN SOD (PORCINE) 5000UNITS/ML 1ML VIAL/SYRINGE IV ONE (20:15)
[2023-08-22] MEDS ORDERED: HEPARIN SOD (PORCINE) 5000UNITS/ML 1ML VIAL/SYRINGE IV PRN (20:15)
[2023-08-22] MEDS ORDERED: HEPARIN DRIP 25,000 UNITS in IV 1 EA IV SCH (20:15)
[2023-08-22 22:00] LABS: HEMATOCRIT 47.8 % (42.0-52.0); MEAN CORPUSCULAR HEMOGLOBIN 35.3 pg (27.0-33.0); MEAN CORPUSCULAR HGB CONC 35.6 g/dl (32.0-36.5); MEAN CORPUSCULAR VOLUME 99.2 fl (80.0-96.0); PLATELET COUNT, AUTOMATED 245 10^3/uL (150-450); RED BLOOD COUNT 4.82 10^6/uL (4.30-6.10); WHITE BLOOD COUNT 10.3 10^3/uL (4.0-10.0)
[2023-08-22 22:41] VITALS: BP 132/75; TEMP 98.7; O2SAT 95
== END 2023-08-22 22:51 | disposition short-term general hospital (02) ==
LOC: M ED 13:45
DX: I70.201 Unspecified atherosclerosis of native arteries of extremities, right leg (principal); I73.9 Peripheral vascular disease, unspecified; I25.10 Atherosclerotic heart disease of native coronary artery without angina pectoris; I10 Essential (primary) hypertension; Z79.82 Long term (current) use of aspirin; Z79.899 Other long term (current) drug therapy

== ENCOUNTER → 2023-12-15 | Outpatient (REF) | payer MEDICARE, OTHER, MEDICAID | LOC: M SFHCDERM 13:15 | PROVIDERS: ATTEND Physician Assistant | DX: C44.629 Squamous cell carcinoma of skin of left upper limb, including shoulder (principal); L57.0 Actinic keratosis ==

== ENCOUNTER → 2023-12-28 | Outpatient (CLI) | payer MEDICARE, OTHER ==
[~2023-12-28] MED LIST changes: +ISOVUE-370 76% 100ML VIAL As Ordered ONE
== END ==
LOC: M RAD 08:53
PROVIDERS: ATTEND Registered Nurse
DX: R93.2 Abnormal findings on diagnostic imaging of liver and biliary tract (principal)
CPT/HCPCS: 74177; Q9967

== ENCOUNTER → 2024-01-19 | Outpatient (REF) | payer MEDICARE, OTHER, MEDICAID ==
[~2024-01-19] MED LIST changes: -ISOVUE-370 76% 100ML VIAL As Ordered ONE
== END ==
LOC: M SFHCDERM 13:23
PROVIDERS: ATTEND Physician Assistant
DX: L57.0 Actinic keratosis (principal); L57.8 Other skin changes due to chronic exposure to nonionizing radiation

== ENCOUNTER → 2024-03-01 | Outpatient (REF) | payer MEDICARE, OTHER, MEDICAID | LOC: M SFHCDERM 17:22 | PROVIDERS: ATTEND Physician Assistant | DX: L57.0 Actinic keratosis (principal); D04.62 Carcinoma in situ of skin of left upper limb, including shoulder ==

== ENCOUNTER 2024-05-01 08:24 | Emergency (ER) | payer MEDICAID, MEDICARE, OTHER ==
[~2024-05-01] VITALS: Ht 180.3 cm; Wt 90.9 kg
[~2024-05-01 08:24] MED LIST changes: +FLUO-365 PO; -FLUO20CA22 PO
[2024-05-01] MEDS ORDERED: CLOP75TA2 (08:30)
[2024-05-01] MEDS: PERCOCET 5MG/325MG TAB PO ONE (10:15)
[2024-05-01 11:37] VITALS: BP 139/79; TEMP 98.1; O2SAT 96
== END 2024-05-01 11:43 | disposition home or self-care (01) ==
LOC: M ED 08:24
DX: S42.352A Displaced comminuted fracture of shaft of humerus, left arm, initial encounter for closed fracture (principal); Y92.019 Unspecified place in single-family (private) house as the place of occurrence of the external cause; Y93.9 Activity, unspecified; Y99.9 Unspecified external cause status; I25.119 Atherosclerotic heart disease of native coronary artery with unspecified angina pectoris; F17.210 Nicotine dependence, cigarettes, uncomplicated; F12.10 Cannabis abuse, uncomplicated; Z79.1 Long term (current) use of non-steroidal anti-inflammatories (NSAID); Z79.899 Other long term (current) drug therapy

== ENCOUNTER → 2024-05-17 | Outpatient (CLI) | payer MEDICARE ==
[~2024-05-17] MED LIST changes: +CLOP75TA2
== END ==
LOC: M SOG 07:59
PROVIDERS: ATTEND Physician Assistant
DX: S42.292A Other displaced fracture of upper end of left humerus, initial encounter for closed fracture (principal); W18.30XA Fall on same level, unspecified, initial encounter; Y92.009 Unspecified place in unspecified non-institutional (private) residence as the place of occurrence of the external cause

== ENCOUNTER → 2024-06-28 | Outpatient (CLI) | payer MEDICARE, MEDICAID | LOC: M SOG 07:55 | PROVIDERS: ATTEND Physician Assistant | DX: S42.292D Other displaced fracture of upper end of left humerus, subsequent encounter for fracture with routine healing (principal) ==

== ENCOUNTER → 2024-08-01 | Outpatient (CLI) | payer MEDICAID, MEDICARE ==
[~2024-08-01] MED LIST changes: +GABA-1172 PO; -GABA-282 PO
== END ==
LOC: M RAD 07:17
PROVIDERS: ATTEND Registered Nurse
DX: R93.2 Abnormal findings on diagnostic imaging of liver and biliary tract (principal)

== ENCOUNTER → 2024-11-05 | Outpatient (CLI) | payer MEDICARE | LOC: M SLEEP HO 10:33 | PROVIDERS: ATTEND Physician Assistant | DX: G47.33 Obstructive sleep apnea (adult) (pediatric) (principal) ==

== ENCOUNTER → 2024-12-05 | Outpatient (CLI) | payer MEDICARE | LOC: M CARPUL 13:46 | PROVIDERS: ATTEND Physician Assistant | DX: I77.810 Thoracic aortic ectasia (principal); I11.9 Hypertensive heart disease without heart failure; R06.02 Shortness of breath ==

== ENCOUNTER → 2025-05-21 | Outpatient (CLI) | payer MEDICARE ==
[~2025-05-21] MED LIST changes: -FLOM0.4C39 PO; +HYDR12.510 PO; -HYDR12CA PO; +LISI40TA10 PO; -LISI40TA4 PO; +MELA5TAB44 PO; -MELA5TAB7 PO; +TAMS-18 PO; -TRIA25CR TOP; +TRIA80CR15 TOP
[2025-05-21 11:06] LABS: ALT/SGPT 27 U/L (7.0-40); AST/SGOT 39 U/L (<34); CALCIUM LEVEL 8.6 MG/DL (8.3-10.6); CARBON DIOXIDE LEVEL 25 MMOL/L (20-31); CHLORIDE LEVEL 106 MMOL/L (98-107); CHOLESTEROL LEVEL 123 MG/DL (<200); CHOLESTEROL RISK RATIO 2.54 (<5); CREATININE FOR GFR 0.72 MG/DL (0.70-1.30); GLOMERULAR FILTRATION RATE > 90.0 (>49); LDL CHOLESTEROL 49.2 MG/DL (<100); NON-HDL-C 74.6 MG/DL; POTASSIUM SERUM 4.1 MMOL/L (3.5-5.1); SODIUM LEVEL 142 MMOL/L (136-145); TRIGLYCERIDES LEVEL 127 MG/DL (<150)
== END ==
LOC: M LAB 08:16
PROVIDERS: ATTEND Physician Assistant
DX: E78.00 Pure hypercholesterolemia, unspecified (principal); R06.02 Shortness of breath; I11.9 Hypertensive heart disease without heart failure; R60.0 Localized edema

== ENCOUNTER → 2025-05-21 | Outpatient (CLI) | payer MEDICARE ==
[2025-05-21 09:55] LABS: PLATELET COUNT, AUTOMATED 204 10^3/uL (150-450)
[2025-05-21 10:21] LABS: PROSTATIC SPECIFIC AG MONITOR 0.04 NG/ML (< 4.00)
[2025-05-21 10:25] LABS: ALT/SGPT 31 U/L (7.0-40); AST/SGOT 38 U/L (<34); CALCIUM LEVEL 8.6 MG/DL (8.3-10.6); CARBON DIOXIDE LEVEL 25 MMOL/L (20-31); CHLORIDE LEVEL 107 MMOL/L (98-107); CHOLESTEROL LEVEL 124 MG/DL (<200); CHOLESTEROL RISK RATIO 2.52 (<5); CREATININE FOR GFR 0.70 MG/DL (0.70-1.30); FREE T4 0.95 NG/DL (0.89-1.76); GLOMERULAR FILTRATION RATE > 90.0 (>49); LDL CHOLESTEROL 47.9 MG/DL (<100); MAGNESIUM LEVEL 1.8 MG/DL (1.8-2.4); NON-HDL-C 74.9 MG/DL; POTASSIUM SERUM 4.1 MMOL/L (3.5-5.1); SODIUM LEVEL 142 MMOL/L (136-145); TRIGLYCERIDES LEVEL 135 MG/DL (<150)
== END ==
LOC: M LAB 08:11
PROVIDERS: ATTEND Registered Nurse
DX: I10 Essential (primary) hypertension (principal); R97.20 Elevated prostate specific antigen [PSA]; I73.9 Peripheral vascular disease, unspecified; I63.9 Cerebral infarction, unspecified; Z79.899 Other long term (current) drug therapy; Z85.46 Personal history of malignant neoplasm of prostate; R19.7 Diarrhea, unspecified; E78.00 Pure hypercholesterolemia, unspecified; I11.9 Hypertensive heart disease without heart failure; R60.0 Localized edema